=== PATIENT | male | born 1995 | race Caucasian/White ===

== ENCOUNTER 2021-05-10 19:39 | Emergency (ER) | payer OTHER, SELFPAY ==
[2021-05-10 20:38] VITALS: BP 105/56; PULSE 82; RESP 16; TEMP 36.8; O2SAT 100
[2021-05-10 20:59] LABS: Hematocrit 42.2 % (42.0-52.0); Hemoglobin 14.1 g/dL (14.0-18.0); Mean Corpuscular HGB Conc 33.4 g/dl (32-36); Mean Corpuscular Hemoglobin 31.8 pg (26-34); Mean Corpuscular Volume 95.3 fl (80-100); Mean Platelet Volume 10.8 fl (7.4-10.4); Platelet Count Result 187 k/mm3 (150-375); Red Blood Count 4.43 M/mm3 (4.6-6.20); Red Cell Distribution Width 13.2 % (11.5-14.5); White Blood Count 4.2 K/mm3 (4.5-10.0)
[2021-05-10 21:09] LABS: Ethanol < 10 mg/dL (<10)
[2021-05-10 21:11] LABS: Alanine Aminotransferase 31 U/L (4-50); Albumin Level 4.5 g/dL (3.5-5.1); Alkaline Phosphatase 83 U/L (38-126); Anion Gap 10 mmol/L (8-16); Aspartate Amino Transferase 41 U/L (17-59); Bilirubin,Total 0.4 mg/dL (0.2-1.3); Blood Urea Nitrogen 10 mg/dL (9-20); Calcium 9.3 mg/dL (8.4-10.2); Carbon Dioxide 29 mmol/L (22-30); Chloride 106 mmol/L (98-107); Estimated CRCL calculation 100 ml/min; Estimated Glomerular Filt Rate > 60; Glucose 124 mg/dL (75-110); Potassium 3.8 mmol/L (3.4-5.0); Sodium 145 mmol/L (137-145)
[2021-05-10 21:30] LABS: Eosinophils Absolute Manual 0.33 K/mm3 (0.02-0.5); Eosinophils Percent Manual 8 % (0-4); Lymphocytes Absolute Manual 1.26 K/mm3 (1.1-4.5); Lymphocytes Percent Manual 30 % (18-44); Monocytes Absolute Manual 0.79 K/mm3 (0.1-0.90); Monocytes Percent Manual 19 % (3-9); Neutrophils Percent Manual 43 % (46-73); Total Cells Counted 100
[2021-05-10 21:31] LABS: Platelet Estimate Adequate (Adequate)
[2021-05-10 21:41] LABS: Thyroid Stimulating Hormone 0.665 uIU/mL (0.465-4.680)
[2021-05-10 22:12] LABS: Add Urine Microscopic? YES; Appearance Urine Clear (Clear); Bilirubin Urine Negative (Negative); Blood Urine Negative (Negative); Color Urine Amber (Yellow); Glucose Urine UA Negative (Negative); Ketones Urine Trace mg/dL (Negative); Leukocyte Esterase Ur Negative LEU/UL (Negative); Mucus Urine Heavy /lpf; Nitrate Urine Negative (Negative); Protein Urine 1+ mg/dL (Negative); RBC Urine 0-2 /hpf (0-2); Specific Grav Ur 1.031 (1.001-1.035); Squamous Epithelial Cell Urine Rare /hpf (Few); WBC Urine 0-3 /hpf
--- NOTE | 2021-05-10 22:23 | PC.NURSE ---
pt medically cleared by jaqueline cameron np
[2021-05-10 22:24] LABS: Amphetamine Screen Urine Negative (Negative); Barbiturate Screen Urine Negative (Negative); Benzodiazepines Screen Urine Positive (Negative); Cannabinoid Screen Urine Positive (Negative); Cocaine Screen Urine Negative (Negative); Methadone Screen Urine Negative (Negative); Opiate Screen Urine Negative (Negative); Phencyclidine Screen Urine Negative (Negative)
--- NOTE | 2021-05-10 22:26 | PC.NURSE ---
crisis contacted at this time
--- NOTE | 2021-05-10 23:13 | ED.PSYCH ---
HPI - Psych General Chief Complaint: Psychiatric Symptoms <EBONI Hernandez - Last Filed: 05/11/21 01:26> Stated Complaint: mental health crisis <EBONI Hernandez - Last Filed: 05/11/21 01:26> Time Seen by Provider: 05/10/21 21:06 <EBONI Hernandez - Last Filed: 05/11/21 01:26> Source: patient <EBONI Hernandez - Last Filed: 05/11/21 01:26> Mode of arrival: ambulatory <EBONI Hernandez - Last Filed: 05/11/21 01:26> Limitations: no limitations <EBONI Hernandez - Last Filed: 05/11/21 01:26> History of Present Illness HPI Narrative: Patient is a 25 year old male who presents with mother for psych evaluation. Per mother patient has had concerning behaviors since the age of 18. Mother reports that patient has been having increasing behavioral concerns since 2019 and reports increasing concerns over the past few month. Mother reports patient has been increasingly paranoid and delusional. Mother reports auditory and visual hallucinations. Mother expresses concerns for safety of patient and family. Mother reports that patient was prescribed risperdal in the past but does not take and he has only been seen once by psychiatry and mother reports canceling follow-up appointments.. Patient is unfocused, having auditory and visual hallucinations during assessment, talking to self and mumbling. <EBONI Hernandez - Last Filed: 05/11/21 01:26> MD complaint: other (Hallucinations) <EBONI Hernandez - Last Filed: 05/11/21 01:26> Related Data Home Medications: Home Medications Medication Instructions Recorded Confirmed propranolol 05/11/21 risperidone mg 05/11/21 <EBONI Hernandez - Last Filed: 05/11/21 01:26> Allergies/Adverse Reactions: Allergies Allergy/AdvReac Type Severity Reaction Status Date / Time No Known Allergies Allergy Mild Unverified 02/20/12 11:03 <EBONI Hernandez - Last Filed: 05/11/21 01:26> Review of Systems Review of Systems: Narrative: CONSTITUTIONAL: Denies fever, chills, or sweats. EYES: Denies visual changes, redness, or discharge. ENT: Denies rhinorrhea, congestion, sore throat, or otalgia. CARDIOVASCULAR: Denies chest pain, palpitations, or edema. RESPIRATORY: Denies cough or dyspnea. GASTROINTESTINAL: Denies abdominal pain, nausea, vomiting, or diarrhea. GENITOURINARY: Denies dysuria or hematuria. SKIN: Denies rash or itching. MUSCULOSKELETAL: Denies back pain, joint pain, or myalgia. NEUROLOGIC: Denies headache, numbness, dizziness, or weakness. PSYCHIATRIC: Reports hallucinations (per mother). <EBONI Hernandez - Last Filed: 05/11/21 01:26> [facility] Social History Social History: Social History (Updated 05/10/21 @ 23:23 by EBONI Hernandez) Smoking status: Never smoker Alcohol intake: never Substance use: current Substance use type: marijuana and other Living arrangements: with family Occupation/Education: unemployed <EBONI Hernandez - Last Filed: 05/11/21 01:26> Comments At the time of signature, I have reviewed and agree with nursing past medical, surgical, social, and family history unless otherwise noted. Please see nursing chart for further information. There is no relevant family history pertinent to the presenting complaint. <EBONI Hernanedz - Last Filed: 05/11/21 01:26> Exam Narrative: Exam Narrative: GENERAL: Well-appearing, well-nourished, and in no acute distress. HEAD: Normocephalic, atraumatic. EYES: EOMI. No redness or drainage. Conjunctiva are normal. ENT: Mucous membranes pink and moist. . CHEST: No respiratory distress. Clear to auscultation. HEART: Regular rate and rhythm. No murmur appreciated. Normal peripheral pulses. GI: Soft, nontender without rebound, or guarding. EXTREMITIES: Normal range of motion. No edema. SKIN: Warm, dry, no rash. NEURO: No focal deficits. Alert and oriented x3. Gait steady. PSYCH: Poor
[2021-05-11 02:05] LABS: EDCOVIDSCREEN Negative (Negative)
--- NOTE | 2021-05-11 03:44 | PC.NURSE ---
0240 Spoke with Yue from [facility] about possible transfer there. Pt spoke with her as well. Faxed chart to [facility] as requested.
[2021-05-11 06:00] VITALS: BP 109/64; PULSE 79; RESP 16; O2SAT 100
[2021-05-11 06:05] VITALS: TEMP 36.7
--- NOTE | 2021-05-11 06:30 | PC.NURSE ---
Patient refusing to sign authorization for transfer-patient reports that he was told (nobody else in room as patient is looking at the corner) my grey stock recorder has to be present before I sign anything . Patient calm with flat affect-moves very slowly, carefully and deliberately
--- NOTE | 2021-05-11 06:53 | PC.NURSE ---
Mother called and notified of patients acceptance and transfer to [facility]
== END 2021-05-11 06:57 ==
PROVIDERS: Emergency Medicine; Nurse Practitioner; Emergency Provider Emergency Medicine
DX: F23 Brief psychotic disorder (principal); Z20.822 Contact with and (suspected) exposure to COVID-19
CPT/HCPCS: 36415; 80053; 80307; 81001; 84443; 85025; 87426; 99285; C9803

== ENCOUNTER 2021-09-01 15:19 | Observation (INO) | payer OTHER, SELFPAY ==
[2021-09-01] VITALS (11 sets, daily range): BP systolic 114–155; BP diastolic 51–100; PULSE 92–103; RESP 16–28; TEMP 36.6; O2SAT 98–100; BMI 23.2
--- NOTE | ~2021-09-01 | CT_ITS ---
EXAMINATION: CT brain wo con DATE: 09/01/2021 16:12 INDICATION: Altered mental status. TECHNIQUE: Computed tomography (CT) of the head was performed without intravenous contrast. The mA wa s adjusted according to patient size. Iterative reconstruction technique was employed. The dose-lengt h product was 605.33 mGy-cm. COMPARISON: None FINDINGS: There is no intracranial hemorrhage, acute infarction, or abnormal intracranial mass lesion . The ventricles are normal in size. The orbits are normal. The paranasal sinuses are clear. The mast oid air cells are normal. IMPRESSION: 1. Normal brain. Reviewed, dictated and finalized at location A. IMPRESSION: 1. Normal brain.
--- NOTE | ~2021-09-01 | XR_ITS ---
EXAMINATION: XR chest 1V portable DATE: 09/01/2021 16:14 INDICATION: Transient alteration of awareness. TECHNIQUE: A single frontal view of the chest was obtained. COMPARISON: Chest 2 views 07/15/2006 FINDINGS: The chest demonstrates clear lungs without pneumonia, pleural effusion, or pneumothorax. Th e heart size is normal. IMPRESSION: 1. No acute cardiopulmonary disease. Reviewed, dictated and finalized at location A.
--- NOTE | 2021-09-01 15:50 | ECG_ITS ---
Measurements Intervals [place] Rate: 91 P: 63 AR: 163 QRS: 52 QRSD: 110 T: 46 QT: 397 QTc: 491 Interpretive Statements SINUS RHYTHM INTRAVENTRICULAR CONDUCTION DELAY BASELINE ARTIFACT- I, II, III BORDERLINE ECG Electronically Signed On 09-01-2021 20:19:31 CDT by Jet Tran D.O.
--- NOTE | 2021-09-01 16:00 | ED.AMS ---
HPI - Altered Mental Status General Chief Complaint: Altered Mental Status Stated Complaint: LETHARGY Time Seen by Provider: 09/01/21 15:48 Source: EMS Mode of arrival: EMS Limitations: clinical condition History of Present Illness HPI narrative: Patient is a 25 M who presents for evaluation of altered mental status and possible overdose. Patient's mom reportedly found him confused, altered, and called an ambulance. Patient was transported to this facility with stable vital signs. He is currently nonverbal. Not able to provide any history. No focal deficits on exam. Glucose normal in route. Patient's mom stated that he was discharged from a psychiatric facility yesterday. He is prescribed the following medications: Propanolol 10 mg TID, Depakote 250 mg TID, Cogentin 1 mg BID, Wellbutrin 150 mg daily, Buspar 15 mg BID, Haldol 5 mg BID. She is unsure if he may have overdosed on any medication or had any alcohol to drink. Pill bottle with less Wellbutrin present. Additional history cannot be obtained secondary to clinical status. Related Data Home Medications Medication Instructions Recorded Confirmed benztropine [Cogentin] 1 mg PO BID 09/01/21 bupropion HCl [Wellbutrin XL] 150 mg PO QAM 09/01/21 buspirone [BuSpar] 15 mg PO BID 09/01/21 divalproex [Depakote] 250 mg PO Q12H 09/01/21 haloperidol [Haldol] 5 mg PO BID 09/01/21 lorazepam [Ativan] 0.5 mg PO BID PRN 09/01/21 propranolol 10 mg PO TID 09/01/21 Allergies Allergy/AdvReac Type Severity Reaction Status Date / Time No Known Allergies Allergy Mild Unverified 02/20/12 11:03 Review of Systems Review of Systems: ROS unobtainable: Yes unobtainable due to mental status PMFSH Social History Social History Smoking status: Never smoker Alcohol intake: never Substance use: current Substance use type: marijuana and other Exam Narrative: GENERAL: Awake, alert, does follow simple commands, garbled verbal response HEAD: Normocephalic, atraumatic. EYES: PERRLA and EOMI. Pupils dilated, 4+. ENT: Nares clear, no rhinorrhea or epistaxis. Mucous membranes dry. NECK: Supple. CHEST: No respiratory distress, breathing even and non labored HEART: Regular rate, sinus rhythm ABDOMEN:Non distended, non tender EXTREMITIES: Normal range of motion. No edema. SKIN: Pale, dry, no rash. NEURO:No focal deficits. Moving all extremities spontaneously. No facial paralysis. No focal deficits. Course Vital Signs Vital signs: Vital Signs Temperature 36.6 C 09/01/21 15:11 Pulse Rate 92 09/01/21 15:11 Respiratory Rate 16 09/01/21 15:11 Blood Pressure 127/51 L 09/01/21 15:11 Pulse Oximetry 98 09/01/21 15:11 Temperature 36.6 C 09/01/21 15:11 Pulse Rate 97 09/01/21 20:18 Respiratory Rate 18 09/01/21 20:18 Blood Pressure 131/83 09/01/21 20:18 Pulse Oximetry 100 09/01/21 20:18 MDM - Altered Mental Status MDM Narrative Medical decision making narrative: Patient presenting for evaluation of altered mental status. Patient with presumed Wellbutrin overdose based on amount of tablets missing, however it is unknown what the patient actually ingested. At the time of assessment, patient is somnolent, vital signs are stable. He is protecting his airway. Speech is garbled but he is following simple commands. Laboratory results show no electrolyte derangement. No acute kidney injury. Urinalysis shows no evidence of UTI. CK is normal. No thyrotoxicosis. Magnesium is normal. Drug screen confirms benzodiazepine ingestion. After speaking with poison control, they recommended observation admission. Unknown intent if this was suicidal attempt. Patient will be admitted to ICU. He is admitted in stable condition. No seizure activity or evidence of arrhythmia in the ER. Differential Diagnosis Differential diagnosis: Likely alcoholic intoxication, altered mental status, delirium, dementia, hypo
[2021-09-01 16:18] LABS: Alveolar/Arterial O2 Gradient 21.7 mmHg; Base Excess ABG -0.8 mEq/l (+/-2.0); Device ROOM AIR; Fractional Inspired Oxygen 21 %; HCO3 ABG 23.1 mEq/l (22.0-26.0); Modified Allen's Test Pass; Oxygen Saturation ABG 96.7 % (95.0-100.0); Oxyhemoglobin 95.4 % THb (90.0-100.0); PCO2 ABG 35.7 mmHg (35.0-45.0); PO2 ABG 85.3 mmHg (80.0-100.0); PO2 FiO2 Ratio Arterial Blood 4.06 %; Site Drawn RIGHT RADIAL; Total Hemoglobin 14.1 g/dL (12.0-18.0); pH ABG 7.428 (7.350-7.450)
[2021-09-01] MEDS: SODIUM CHLORIDE 0.9% IV 1,000 ML 999 ML IV CONT ×2 (16:30→20:12)
[2021-09-01 16:41] LABS: Basophils Percent Auto 0.3 % (0.2-1.2); Eosinophils Absolute Auto 0.1 K/mm3 (0-0.3); Eosinophils Percent Auto 1.4 % (0-4.4); Hemoglobin 13.6 g/dL (14.0-18.0); Immature Granulocyte Absolute 0.02 K/mm3 (0.00-0.031); Immature Granulocyte Percent A 0.3 % (0-0.5); Lymphocytes Absolute Auto 1.41 K/mm3 (0.9-3.2); Lymphocytes Percent Auto 21.3 % (18.3-44.2); Mean Corpuscular Hemoglobin 32.2 pg (26-34); Mean Corpuscular Volume 94.8 fl (80-100); Mean Platelet Volume 10.4 fl (7.4-10.4); Monocytes Percent Auto 14.6 % (2.6-8.5); Neutrophils Absolute Auto 4.1 K/mm3 (1.3-6.7); Neutrophils Percent Auto 62.1 % (45.5-73.1); Platelet Count Result 220 k/mm3 (150-375); Red Blood Count 4.22 M/mm3 (4.6-6.20); Red Cell Distribution Width 13.1 % (11.5-14.5); White Blood Count 6.6 K/mm3 (4.5-10.0)
[2021-09-01 16:41] LABS: Basophils Percent Auto 0.3 % (0.2-1.2); Eosinophils Absolute Auto 0.1 K/mm3 (0-0.3); Eosinophils Percent Auto 1.5 % (0-4.4); Hematocrit 41.9 % (42.0-52.0); Immature Granulocyte Absolute 0.03 K/mm3 (0.00-0.031); Immature Granulocyte Percent A 0.5 % (0-0.5); Lymphocytes Percent Auto 21.3 % (18.3-44.2); Mean Corpuscular HGB Conc 33.4 g/dl (32-36); Mean Corpuscular Hemoglobin 32.2 pg (26-34); Mean Corpuscular Volume 96.3 fl (80-100); Mean Platelet Volume 10.4 fl (7.4-10.4); Monocytes Absolute Auto 0.9 K/mm3 (0.1-0.6); Monocytes Percent Auto 14.3 % (2.6-8.5); Neutrophils Absolute Auto 4.1 K/mm3 (1.3-6.7); Neutrophils Percent Auto 62.1 % (45.5-73.1); Platelet Count Result 213 k/mm3 (150-375); Red Blood Count 4.35 M/mm3 (4.6-6.20); Red Cell Distribution Width 13.2 % (11.5-14.5); White Blood Count 6.6 K/mm3 (4.5-10.0)
[2021-09-01 16:52] LABS: Alanine Aminotransferase 25 U/L (4-50); Albumin Level 4.7 g/dL (3.5-5.1); Alkaline Phosphatase 80 U/L (38-126); Anion Gap 11 mmol/L (8-16); Aspartate Amino Transferase 23 U/L (17-59); Bilirubin,Total 0.6 mg/dL (0.2-1.3); Blood Urea Nitrogen 6 mg/dL (9-20); Calcium 9.3 mg/dL (8.4-10.2); Carbon Dioxide 28 mmol/L (22-30); Chloride 105 mmol/L (98-107); Estimated Glomerular Filt Rate > 60; Glucose 83 mg/dL (65-110); Potassium 3.4 mmol/L (3.4-5.0); Sodium 144 mmol/L (137-145)
[2021-09-01 16:52] LABS: Alanine Aminotransferase 24 U/L (4-50); Albumin Level 4.6 g/dL (3.5-5.1); Alkaline Phosphatase 78 U/L (38-126); Anion Gap 14 mmol/L (8-16); Aspartate Amino Transferase 23 U/L (17-59); Bilirubin,Total 0.6 mg/dL (0.2-1.3); Blood Urea Nitrogen 7 mg/dL (9-20); Calcium 9.1 mg/dL (8.4-10.2); Carbon Dioxide 26 mmol/L (22-30); Chloride 105 mmol/L (98-107); Creatine Kinase 302 U/L (55-170); Estimated Glomerular Filt Rate > 60; Glucose 81 mg/dL (65-110); Potassium 3.5 mmol/L (3.4-5.0); Sodium 145 mmol/L (137-145)
[2021-09-01 16:54] LABS: Acetaminophen < 10 ug/mL (10-30); Ethanol < 10 mg/dL (<10); Salicylate < 1.0 mg/dL (2-20)
[2021-09-01 17:02] LABS: Partial Thromboplastin Time 26.6 SECONDS (22.3-36.8)
[2021-09-01 17:07] LABS: INR 0.9; Prothrombin Time 11.7 Seconds (11.1-14.7)
[2021-09-01 17:20] LABS: Add Urine Microscopic? YES; Appearance Urine Clear (Clear); Bilirubin Urine Negative (Negative); Blood Urine Negative (Negative); Color Urine Yellow (Yellow); Glucose Urine UA Negative (Negative); Ketones Urine Trace mg/dL (Negative); Leukocyte Esterase Ur Negative LEU/UL (Negative); Nitrate Urine Negative (Negative); Protein Urine Negative (Negative); RBC Urine 0-2 /hpf (0-2); Specific Grav Ur 1.006 (1.001-1.035); Urobilinogen Urine Negative mg/dL (<2.0); WBC Urine 0-3 /hpf
[2021-09-01 18:04] LABS: Magnesium 2.1 mg/dL (1.6-2.3)
[2021-09-01 18:39] LABS: Barbiturate Screen Urine Negative (Negative); Benzodiazepines Screen Urine Positive (Negative)
[2021-09-01 18:42] LABS: Valproic Acid 57.4 ug/mL (50-120)
[2021-09-01 18:53] LABS: Amphetamine Screen Urine Negative (Negative); Barbiturate Screen Urine Negative (Negative); Benzodiazepines Screen Urine Positive (Negative); Cannabinoid Screen Urine Negative (Negative); Methadone Screen Urine Negative (Negative); Opiate Screen Urine Negative (Negative); Phencyclidine Screen Urine Negative (Negative)
--- NOTE | 2021-09-01 19:33 | PC.NURSE ---
poison control contacted ed and was given an update of pts condition.
--- NOTE | 2021-09-01 20:45 | ADMGEN ---
This patient, Lokesh Wyatt, was admitted to Intensive Care Unit-10. Patient/family oriented to hospital policies and general routines including ID bracelet, bed and alarms, visiting hours, pain management, procedures, bathroom and other care routines, personal items, smoking policy, room service/diet, and visiting hours. Information on how to activate the Rapid Response Team has been discussed. Patient/Family are encouraged to report perceived risks to care and to ask questions if they do not understand what they are told or what they should do.
[2021-09-01] MEDS: SODIUM CHLORIDE 0.9% IV 1,000 ML 125 ML IV CONT (21:00)
--- NOTE | 2021-09-01 21:22 | PM.IMHP ---
H&P: HPI History of Present Illness Date/Time: 09/01/21 21:22 this is a 25-year-old male patient who has a past history of schizophrenia. The patient also deals with depression and anxiety. The patient's mom reportedly found the patient to be confused and altered therefore she called ambulance. The patient was initially nonverbal. However he he is now talking in active. He is attempting to get out of bed on many occasion. The patient was found to be positive for Xanax. I asked the patient about Xanax and he said somebody gave it to a but he could not tell me how many he took her how many pills he took today. He tells me that he is on medication for depression. But he would not tell me if he felt depressed or intentionally tried to overdose to commit suicide. The patient was recently discharged from psychiatric facility yesterday. He was prescribed propranolol, Depakote, Cogentin, Wellbutrin, BuSpar, and Haldol. The patient tells me does not use any alcohol. The patient is a poor historian by the way. Patient drug screen was positive for benzodiazepines. Is reported that poison Control had been notified. The garbage man has been consulted and the patient was placed in the intensive care unit under suicide watch. The patient is being admitted for observation status on the date of service of 09/01/2021. Chief Complaint: Overdose Review of Systems Review of Systems: ROS unobtainable: Yes unobtainable due to mental status PMFSH Past Medical History Medical History (Updated 09/01/21 @ 21:27 by Carmelina Desai NP) Depression with anxiety Schizophrenia Surgical History Surgical History (Updated 09/01/21 @ 21:27 by Carmelina Desai NP) Surgical history unknown Family History Family History Other Unknown family medical history Social History Social History (Updated 09/01/21 @ 21:28 by Carmelina Desai NP) Social History: The patient tells me that he has does not smoke or drink. He lives with his mother and he is listed as a full code. Code status full code. Smoking status: Never smoker Alcohol intake: never Substance use: current Substance use type: marijuana and other Meds Home Medications and Allergies Home Medications Medication Instructions Recorded Confirmed Type benztropine [Cogentin] 1 mg PO BID 09/01/21 History bupropion HCl [Wellbutrin XL] 150 mg PO QAM 09/01/21 History buspirone [BuSpar] 15 mg PO BID 09/01/21 History divalproex [Depakote] 250 mg PO Q12H 09/01/21 History haloperidol [Haldol] 5 mg PO BID 09/01/21 History lorazepam [Ativan] 0.5 mg PO BID PRN 09/01/21 History propranolol 10 mg PO TID 09/01/21 History Allergies Allergy/AdvReac Type Severity Reaction Status Date / Time No Known Allergies Allergy Mild Unverified 02/20/12 11:03 Vital Signs Vital Signs - 24 hr 09/01/21 15:11 09/01/21 17:00 09/01/21 17:01 Temperature 36.6 C Pulse Rate 92 95 93 Respiratory Rate 16 22 H 23 H Blood Pressure 127/51 L 134/80 Pulse Oximetry 98 09/01/21 17:15 09/01/21 17:16 09/01/21 17:30 Temperature Pulse Rate 98 96 103 H Respiratory Rate 19 28 H 28 H Blood Pressure 138/90 155/100 H Pulse Oximetry 09/01/21 17:31 09/01/21 17:58 09/01/21 18:43 Temperature Pulse Rate 98 94 Respiratory Rate 28 H 20 16 Blood Pressure Pulse Oximetry 09/01/21 20:18 Temperature Pulse Rate 97 Respiratory Rate 18 Blood Pressure 131/83 Pulse Oximetry 100 Exam Const: General: alert, awake, Physically active and anxious Nutritional Appearance: thin Orientation/consciousness: oriented to person Limitations: altered mental status HENMT: Head: normal to inspection, No palpable skull fracture present and normocephalic Ears: hearing grossly normal bilaterally General nose exam: Normal external nose present Eyes: General: appearance normal, both eyes and all related structures Alignment and
[2021-09-02] VITALS (7 sets, daily range): BP systolic 105–131; BP diastolic 57–88; PULSE 67–116; RESP 15–20; TEMP 36.8–36.9; O2SAT 97–100
--- NOTE | 2021-09-02 00:07 | ECG_ITS ---
Measurements Intervals [place] Rate: 94 P: 60 GA: 173 QRS: 60 QRSD: 112 T: 58 QT: 368 QTc: 462 Interpretive Statements SINUS RHYTHM INTRAVENTRICULAR CONDUCTION DELAY BORDERLINE ECG Electronically Signed On 09-02-2021 8:32:42 CDT by Jet Tran D.O.
[2021-09-02] MEDS: SODIUM CHLORIDE 0.9% IV 1,000 ML 125 ML IV CONT ×3 (04:01→23:44)
[2021-09-02 04:58] LABS: Basophils Percent Auto 0.5 % (0.2-1.2); Eosinophils Absolute Auto 0.1 K/mm3 (0-0.3); Eosinophils Percent Auto 1.8 % (0-4.4); Hematocrit 37.9 % (42.0-52.0); Hemoglobin 12.8 g/dL (14.0-18.0); Immature Granulocyte Absolute 0.02 K/mm3 (0.00-0.031); Immature Granulocyte Percent A 0.4 % (0-0.5); Lymphocytes Absolute Auto 1.27 K/mm3 (0.9-3.2); Lymphocytes Percent Auto 22.2 % (18.3-44.2); Mean Corpuscular HGB Conc 33.8 g/dl (32-36); Mean Corpuscular Hemoglobin 32.2 pg (26-34); Mean Corpuscular Volume 95.2 fl (80-100); Monocytes Percent Auto 16.8 % (2.6-8.5); Neutrophils Absolute Auto 3.3 K/mm3 (1.3-6.7); Neutrophils Percent Auto 58.3 % (45.5-73.1); Platelet Count Result 176 k/mm3 (150-375); Red Blood Count 3.98 M/mm3 (4.6-6.20); Red Cell Distribution Width 12.9 % (11.5-14.5); White Blood Count 5.7 K/mm3 (4.5-10.0)
[2021-09-02 05:23] LABS: Alanine Aminotransferase 19 U/L (4-50); Albumin Level 3.7 g/dL (3.5-5.1); Alkaline Phosphatase 62 U/L (38-126); Anion Gap 9 mmol/L (8-16); Aspartate Amino Transferase 27 U/L (17-59); Bilirubin,Total 0.6 mg/dL (0.2-1.3); Blood Urea Nitrogen 5 mg/dL (9-20); Calcium 7.6 mg/dL (8.4-10.2); Carbon Dioxide 26 mmol/L (22-30); Chloride 107 mmol/L (98-107); Estimated CRCL calculation 107 ml/min; Estimated Glomerular Filt Rate > 60; Glucose 76 mg/dL (65-110); Lactate Dehydrogenase 401 U/L (313-618); Lactic Acid Reflex 0.7 mmol/L (0.7-2.1); Magnesium 1.8 mg/dL (1.6-2.3); Potassium 3.3 mmol/L (3.4-5.0); Sodium 142 mmol/L (137-145)
[2021-09-02] MEDS: SODIUM CHLORIDE 0.9% IV 1,000 ML 999 ML IV CONT (07:43)
[2021-09-02] MEDS: ENOXAPARIN 40 MG/0.4 ML SYRINGE SUB-Q (07:43)
[2021-09-02] MEDS: POTASSIUM CHLORIDE 20 MEQ TABLET 40 MEQ PO (10:22)
--- NOTE | 2021-09-02 11:07 | ECG_ITS ---
Measurements Intervals [place] Rate: 100 P: 58 CA: 158 QRS: 40 QRSD: 95 T: 46 QT: 350 QTc: 453 Interpretive Statements SINUS TACHYCARDIA BORDERLINE ECG Electronically Signed On 09-02-2021 11:30:11 CDT by Jet Tran D.O.
--- NOTE | 2021-09-02 12:09 | WPDCNINT ---
Assessment and Plan Assessment and plan (1) Medication overdose: Code(s): T50.901A - Poisoning by unspecified drugs, medicaments and biological substances, accidental (unintentional), initial encounter Status: Acute Assessment and Plan: Patient presented with altered mental status likely related to medication overdose, likely Xanax and/or Wellbutrin according to the records -patient initially was somnolent but protecting his airways, -patient received IV fluids -currently is awake, alert, oriented, answers to questions appropriately -patient is hemodynamically stable, afebrile -patient is medically stable -denies any suicidal ideation/behavior -will have care coordination and crisis management evaluate the patient (2) Altered mental status: Code(s): R41.82 - Altered mental status, unspecified Status: Acute Assessment and Plan: Likely secondary ingestion of medications as above -resolved (3) Schizophrenia: Code(s): F20.9 - Schizophrenia, unspecified Status: Chronic Assessment and Plan: History of schizophrenia, multiple psych medications at home (4) Depression with anxiety: Code(s): F41.8 - Other specified anxiety disorders Status: Chronic Additional Plan Code status: Full code Critical care time spent: 41 minutes This dictation may have been done utilizing a voice recognition system. Attempts have been made to correct errors. However, there may be uncorrected grammatical, spelling, and recognition errors present. Due to a high probability of clinically significant, life threatening deterioration, the patient required my highest level of preparedness to intervene emergently and I personally spent this critical care time directly and personally managing the patient. This critical care time included obtaining a history; examining the patient; pulse oximetry; ordering and review of studies; arranging urgent treatment with development of a management plan; evaluation of patient's response to treatment; frequent reassessment; and discussions with other providers. It was exclusive of separately billable procedures and treating other patients and teaching time. Please see Assessment and Plan section and the rest of the note for further information on patient assessment and treatment Transport Analyst Consult Note Consult date: 09/02/21 Time Seen: 06:54 Reason for consult: Medication overdose, altered mental status HPI: Lokesh Wyatt is a 25 year old male with past medical history of depression with anxiety, schizophrenia with paranoia presented the ED on 09/01/2021 after he was found by his mother to be confused and with altered mental status. EMS was called and patient arrived in the ER with possible intentional medication overdose with benzodiazepine and or Wellbutrin. According the records patient was discharged from a psychiatric facility recently and was prescribed propranolol, Depakote, Cogentin, Wellbutrin, BuSpar, Haldol. Urine drug screen was positive benzodiazepine. Patient was able to protect his airway, was given IV fluids in transfer the ICU for further management. Poison control was notified Patient seen and examined this morning, is awake, alert, able to answer all questions. His paranoid state and states he did not take Wellbutrin and he may have taken Xanax and he was very anxious. He stated he is not homicidal or suicidal at this time. Currently awake, alert, answers to questions appropriately, nonfocal. Patient is afebrile to hemodynamically stable with adequate urine output Review of Systems Review of Systems: All systems reviewed & are unremarkable except as noted in HPI and below PMFSH Past Medical History Medical History (Updated 09/02/21 @ 12:27 by Freddy Long MD) Depression with anxiety Schizophrenia Surgical History Surgical History (Updated 09/01/21 @ 21:27 by Carmelina Desai NP) Surgical history unknown Family Histor
[2021-09-02 12:28] LABS: EDCOVIDSCREEN Negative (Negative)
[2021-09-02 13:15] LABS: Creatine Kinase 1224 U/L (55-170)
--- NOTE | 2021-09-02 13:36 | PC.NURSE ---
PCR Covid swab sent for placement per Crisis Nurse request. Certain facilities don't accept the rapid swab.
--- NOTE | 2021-09-02 15:27 | PM.IMPN ---
Progress Note: A&P Assessment and Plan (1) Medication overdose: Code(s): T50.901A - Poisoning by unspecified drugs, medicaments and biological substances, accidental (unintentional), initial encounter Status: Acute Assessment and Plan: Patient presented with altered mental status likely related to medication overdose, likely Ativan and/or Wellbutrin according to the records. Patient denies any suicidal or homicidal ideation. He was recently at a psychiatric facility. Will control the other medical problems with plans for patient to return to psychiatric facility once he is stable. Continue IV fluids. Care coordination and crisis management have been consulted. (2) Altered mental status: Code(s): R41.82 - Altered mental status, unspecified Status: Acute Assessment and Plan: Likely secondary ingestion of medications as above. Consider also seizure in the differential. Clinical condition is improving. Continue to monitor. (3) Urine retention: Code(s): R33.9 - Retention of urine, unspecified Status: Acute Assessment and Plan: Patient had urine retention of over 1 L. he refused catheter at this time. Since findings show evaluation, he has been able to void good volumes. Clinical exam has improved. Continue to monitor urine output. Renal function remaining normal. (4) Rhabdomyolysis: Code(s): M62.82 - Rhabdomyolysis Status: Acute Assessment and Plan: Total CK was elevated at 302 on admission. On repeat, total CK climbed to 1224. Probably related to Haldol. Although there is concern for drug overdose, consider also unwitnessed seizure which could can attribute to the elevated total CK. Continue IV fluids. Repeat total CK in the morning. (5) Schizophrenia: Code(s): F20.9 - Schizophrenia, unspecified Status: Chronic Assessment and Plan: Patient has a history of schizophrenia. Patient remaining stable at this time. Valproic acid level 57. Continue to monitor closely. Planning for psychiatric placement. (6) Depression with anxiety: Code(s): F41.8 - Other specified anxiety disorders Status: Chronic Assessment and Plan: Patient still shaky but mental status overall is improved. Continue to hold home medications at this time. (7) DVT prophylaxis: Code(s): Z29.9 - Encounter for prophylactic measures, unspecified Status: Acute Assessment and Plan: Lovenox Subjective Date/time seen: 09/02/21 15:27 Interval history: 25yo male with depression/anxiety and schizophrenia here for altered mental status. Patient was discharged from the psychiatric facility day prior to admission. Was discharged on propranolol, Depakote, Cogentin, Wellbutrin, BuSpar at [facility]. It is unclear how much medications he took. He denies taking excessive amounts of medications including Wellbutrin. Urine drug screen was positive for benzodiazepines. Patient denies any suicidal or homicidal ideation. He states that he has to void but has been trying to hold it. Later in the conversation, he states that he is having trouble voiding. No dysuria or hematuria. Exam Narrative: AF 98.2 118/76 116 16 100% ra Gen - NARD Chest - CTA bilaterally, nml RR CV - RRR S1/S2. Telemetry showing no significant dysrhythmias Abd -soft. Distended. Firm lower abdomen consistent with distended bladder Ext - No pedal edema Neuro -alert. Tremulous. He is able to stand try to use a urinal. He perseverates. Psych -poor eye contact. Mumbling speech at times Skin - Warm and dry Objective Data Vital Signs Vital Signs: Vital Signs - 24 hr 09/01/21 17:00 09/01/21 17:01 09/01/21 17:15 Temperature Pulse Rate 95 93 98 Respiratory Rate 22 H 23 H 19 Blood Pressure 134/80 138/90 Pulse Oximetry 09/01/21 17:16 09/01/21 17:30 09/01/21 17:31 Temperature Pulse Rate 96 103 H 98 Respiratory Rate 28 H
--- NOTE | 2021-09-02 20:42 | PC.NURSE ---
When asked if pt had thoughts of wanting to harm himself, he stated no. When asked if pt knew why he was at the hospital pt states that he blacked out. Reports no intention of wanting to kill himself. States he has never been hospitalized before, never experienced blacking out, nor has he attempted suicide in the past. Pt states he is not a threat to himself.
[2021-09-03] VITALS: BP 109/69; PULSE 82; RESP 20; TEMP 37; O2SAT 98
[2021-09-03 05:35] LABS: Basophils Percent Auto 0.3 % (0.2-1.2); Eosinophils Absolute Auto 0.2 K/mm3 (0-0.3); Eosinophils Percent Auto 4.1 % (0-4.4); Hematocrit 40.5 % (42.0-52.0); Hemoglobin 13.6 g/dL (14.0-18.0); Immature Granulocyte Absolute 0.02 K/mm3 (0.00-0.031); Immature Granulocyte Percent A 0.3 % (0-0.5); Lymphocytes Absolute Auto 1.31 K/mm3 (0.9-3.2); Lymphocytes Percent Auto 22.6 % (18.3-44.2); Mean Corpuscular HGB Conc 33.6 g/dl (32-36); Mean Corpuscular Hemoglobin 32.1 pg (26-34); Mean Corpuscular Volume 95.5 fl (80-100); Mean Platelet Volume 10.8 fl (7.4-10.4); Monocytes Percent Auto 17.4 % (2.6-8.5); Neutrophils Absolute Auto 3.2 K/mm3 (1.3-6.7); Neutrophils Percent Auto 55.3 % (45.5-73.1); Platelet Count Result 187 k/mm3 (150-375); Red Blood Count 4.24 M/mm3 (4.6-6.20); Red Cell Distribution Width 12.8 % (11.5-14.5); White Blood Count 5.8 K/mm3 (4.5-10.0)
[2021-09-03 06:04] LABS: Alanine Aminotransferase 24 U/L (4-50); Albumin Level 4.1 g/dL (3.5-5.1); Alkaline Phosphatase 80 U/L (38-126); Anion Gap 9 mmol/L (8-16); Aspartate Amino Transferase 25 U/L (17-59); Bilirubin,Total 0.4 mg/dL (0.2-1.3); Blood Urea Nitrogen 3 mg/dL (9-20); Calcium 8.5 mg/dL (8.4-10.2); Carbon Dioxide 27 mmol/L (22-30); Chloride 104 mmol/L (98-107); Creatine Kinase 664 U/L (55-170); Estimated CRCL calculation 119 ml/min; Estimated Glomerular Filt Rate > 60; Glucose 95 mg/dL (65-110); Phosphorus 4.4 mg/dL (2.5-4.5); Potassium 3.6 mmol/L (3.4-5.0); Sodium 140 mmol/L (137-145)
--- NOTE | 2021-09-03 06:29 | PC.NURSE ---
Updated Lisa Rodriguez, at Poison Control with pt's updated CK, BUN, creatinine. No new orders requested at this time. Pt eligible for medical clearance per MD discretion.
[2021-09-03] MEDS: SODIUM CHLORIDE 0.9% IV 1,000 ML 125 ML IV CONT ×3 (07:59→23:18)
[2021-09-03 08:00] VITALS: BP 105/90; PULSE 85; RESP 22; TEMP 36.8; O2SAT 100
--- NOTE | 2021-09-03 08:20 | PC.NURSE ---
PATIENT HAS BEEN CLEARED AND RELEASED BY POISON CONTROL.
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
[2021-09-03] MEDS: ENOXAPARIN 40 MG/0.4 ML SYRINGE SUB-Q (15:31)
[2021-09-03 16:00] VITALS: BP 119/72; PULSE 84
[2021-09-03 17:47] LABS: SARS-CoV-2 RNA PCR Negative
--- NOTE | 2021-09-03 18:36 | PC.NURSE ---
1730-REPORT GIVEN TO CINDY HOWARD AT [facility]. ALL QUESTIONS ANSWERED. WILL CALL WITH ETA WHEN TRANSPORT IS ARRANGED.
[2021-09-03] MEDS: LORazepam (*CRX) 0.5 MG TABLET PO (18:43)
[2021-09-04] VITALS: BP 127/81; PULSE 95; RESP 18; TEMP 36.9; O2SAT 100
[2021-09-04 04:57] LABS: Anion Gap 8 mmol/L (8-16); Blood Urea Nitrogen 4 mg/dL (9-20); Calcium 8.6 mg/dL (8.4-10.2); Carbon Dioxide 27 mmol/L (22-30); Chloride 105 mmol/L (98-107); Creatine Kinase 233 U/L (55-170); Estimated CRCL calculation 119 ml/min; Estimated Glomerular Filt Rate > 60; Glucose 101 mg/dL (65-110); Potassium 3.9 mmol/L (3.4-5.0); Sodium 140 mmol/L (137-145)
[2021-09-04] MEDS: SODIUM CHLORIDE 0.9% IV 1,000 ML 125 ML IV CONT ×3 (07:11→22:37)
[2021-09-04 08:00] VITALS: BP 131/82; PULSE 84; RESP 18; RESP 20; TEMP 36.6; O2SAT 96; O2SAT 98
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
[2021-09-04 16:00] VITALS: BP 113/68; PULSE 77; RESP 16; TEMP 36.8; O2SAT 96
[2021-09-04] MEDS: LORazepam (*CRX) 0.5 MG TABLET PO (20:45)
[2021-09-05] VITALS: BP 117/71; PULSE 62; RESP 18; TEMP 37.2; O2SAT 99
[2021-09-05] MEDS: SODIUM CHLORIDE 0.9% IV 1,000 ML 125 ML IV CONT (06:38)
[2021-09-05 08:00] VITALS: BP 120/70; PULSE 101; RESP 16; TEMP 37; O2SAT 100
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
[2021-09-05 14:59] VITALS: BP 122/63; PULSE 98; RESP 14; O2SAT 100
[2021-09-05] MEDS: busPIRone HCL 5 MG TABLET 15 MG PO (16:39)
[2021-09-05] MEDS: BENZTROPINE MESYLATE 1 MG TABLET PO (16:40)
[2021-09-05] MEDS: DIVALPROEX SODIUM DR 250 MG TABEC PO (16:40)
[2021-09-05] MEDS: HALOPERIDOL 5 MG TABLET PO (16:40)
[2021-09-05] MEDS: LORazepam (*CRX) 0.5 MG TABLET PO (18:34)
[2021-09-05 23:37] VITALS: BP 112/54; PULSE 84; RESP 22; TEMP 37.6; O2SAT 97
--- NOTE | 2021-09-06 00:53 | PC.NURSE ---
Spoke with [place] at [facility]. States that patient will need PCR within the last 24 hours to be placed and that bed will be available later today. They will need to be notified when results are available. They have confirmed that they received face sheet for this patient.
[2021-09-06] MEDS: HALOPERIDOL 5 MG TABLET PO ×2 (08:48→17:06)
[2021-09-06] MEDS: buPROPion HCL XL (24 HR) 150 MG TABCR PO (08:48)
[2021-09-06] MEDS: BENZTROPINE MESYLATE 1 MG TABLET PO ×2 (08:48→17:06)
[2021-09-06] MEDS: DIVALPROEX SODIUM DR 250 MG TABEC PO ×2 (08:48→17:06)
[2021-09-06] MEDS: ENOXAPARIN 40 MG/0.4 ML SYRINGE SUB-Q (08:48)
[2021-09-06] MEDS: busPIRone HCL 5 MG TABLET 15 MG PO ×2 (08:48→17:05)
[2021-09-06 08:51] VITALS: BP 108/62; PULSE 84; RESP 16; TEMP 36.9; O2SAT 98
--- NOTE | 2021-09-06 14:18 | PM.DS ---
DS: Admitting Diagnosis Discharge Date 09/06/21 Admitting Diagnosis Altered mental status DS: Discharge Diagnosis Discharge Diagnosis (1) Medication overdose: Qualifiers: Encounter type: sequela Injury intent: intentional self-harm Qualified Code(s): T50.902S - Poisoning by unspecified drugs, medicaments and biological substances, intentional self-harm, sequela Code(s): T50.901A - Poisoning by unspecified drugs, medicaments and biological substances, accidental (unintentional), initial encounter Status: Acute Assessment and Plan: Patient presented with altered mental status likely related to medication overdose, either Ativan and/or Wellbutrin according to the records. Patient denies any suicidal or homicidal ideation. Patient was cleared by Crisis for safe discharge home. (2) Altered mental status: Qualifiers: Altered mental status type: transient alteration of awareness Qualified Code(s): R40.4 - Transient alteration of awareness Code(s): R41.82 - Altered mental status, unspecified Status: Acute Assessment and Plan: Likely secondary ingestion of medications as above. Consider also seizure in the differential but felt les likely. Clinical condition improved and he returned to baseline (3) Urine retention: Code(s): R33.9 - Retention of urine, unspecified Status: Acute Assessment and Plan: Patient had urine retention of over 1 L by bladder scanner. He refused catheter at that time. Haldol and Cogentin can cause this. He was able to void small volumes and eventually able to void larger amounts with repeat bladder scan showed urine retention resolved. He did not have recurrence even despite his medications being resumed. Renal function remained normal as well (4) Rhabdomyolysis: Qualifiers: Rhabdomyolysis type: non-traumatic Qualified Code(s): M62.82 - Rhabdomyolysis Code(s): M62.82 - Rhabdomyolysis Status: Acute Assessment and Plan: Total CK was elevated at 302 on admission. On repeat, total CK climbed to 1224. Probably related to Haldol. Although there is concern for drug overdose, consider also unwitnessed seizure which could contribute to the elevated total CK and explain the altered mental status. With IV fluids, total CK trended down. (5) Schizophrenia: Qualifiers: Schizophrenia type: unspecified Qualified Code(s): F20.9 - Schizophrenia, unspecified Code(s): F20.9 - Schizophrenia, unspecified Status: Chronic Assessment and Plan: Patient has a history of schizophrenia. Patient remained stable. Valproic acid level 57. Home meds resumed (6) Depression with anxiety: Code(s): F41.8 - Other specified anxiety disorders Status: Chronic Assessment and Plan: Patient's mental status remained stable. DS: Summary Hospital Course Reason for hospitalization: 25yo male with depression/anxiety and schizophrenia here for altered mental status. Please see H&P for details Hospital Course: Please see above for details of hospital course Status at Discharge Cognitive/behavioral status at discharge: stable Time Spent with Patient Time attestation: Total time spent providing and/or coordinating discharge services: 32 minutes Time spent: Greater than 30 minutes Specific discharge activities: Left message with family. Patient aware of discharge. Discussed discharge plan also with care coordination. Exam Narrative: AF 98.4 108/62 84 16 98% ra Gen - NARD Chest - CTA bilaterally, nml RR CV - RRR S1/S2 Abd -soft. NT/ND, +BS. Bladder does not feel distended. Ext - No pedal edema Neuro -alert and appropriate Psych -nml mood but odd affect. He denies auditory or visual hallucination Skin - Warm and dry DS: Data Data Completed and Pending Labs on day of discharge: Labs from last 24 hours 09/06/21 06:52 SARS-CoV-2 R
[2021-09-06 18:52] LABS: SARS-CoV-2 RNA PCR Negative
[2021-10-06 14:56] LABS: Reference Lab Test Result None Detected
== END 2021-09-06 19:13 | disposition home or self-care (01) ==
LOC: ANHED 18:56 → ANHICU 09-02 07:33
PROVIDERS: Emergency Medicine; Internal Medicine; Nurse Practitioner; Admitting Provider Internal Medicine; Emergency Provider Emergency Medicine; Visit Provider Internal Medicine
DX: T42.4X1A Poisoning by benzodiazepines, accidental (unintentional), initial encounter (principal); F20.9 Schizophrenia, unspecified; F41.8 Other specified anxiety disorders; R41.82 Altered mental status, unspecified; R33.9 Retention of urine, unspecified; M62.82 Rhabdomyolysis; Z20.822 Contact with and (suspected) exposure to COVID-19
CPT/HCPCS: 36415; 36600; 51701; 70450; 71045; 80048; 80053; 80164; 80307; 81001; 82550; 82728; 82805; 83605; 83615; 83735; 84100; 84443; 85025; 85610; 85730; 87426; 93005; 96360; 96361; 96372; 99285; A9270; C9803; G0378; G0379; J1650; J7030; U0003; U0005

== ENCOUNTER 2021-09-23 21:02 | Inpatient (IN) | payer OTHER, SELFPAY ==
[2021-09-23] VITALS (11 sets, daily range): BP systolic 132–157; BP diastolic 83–145; PULSE 109–159; RESP 17–34; TEMP 37.1; O2SAT 94–96
--- NOTE | ~2021-09-23 | CT_ITS ---
EXAMINATION: CT brain wo con DATE: 09/23/2021 22:04 INDICATION: Confusion, altered mental state. History of schizophrenia. TECHNIQUE: Computed tomography (CT) of the head was performed without intravenous contrast. The mA wa s adjusted according to patient size. Iterative reconstruction technique was employed. Exam dose: 60 5.33 mGy-cm total exam DLP. COMPARISON: 09/01/2021 CT brain FINDINGS: No intracranial mass lesion or hemorrhage or cerebrovascular accident. No midline shift or mass effect. Normal ventricular size. Normal ureña-white matter differentiation. No subdural or epidur al hematoma. No orbital mass lesion. No fracture or bone destruction of the cranial vault. The included mastoid air cells and paranasal si nuses are normally developed and aerated. IMPRESSION: Negative Reviewed, dictated and finalized at [facility] Reviewed, dictated and finalized at [facility] IMPRESSION: Negative
--- NOTE | ~2021-09-23 | MR_ITS ---
EXAMINATION: MR hand LT wo con DATE: 09/26/2021 11:25 INDICATION: Left hand swelling TECHNIQUE: Magnetic resonance imaging (MRI) of the left hand was performed without intravenous contra st to include the metacarpals and digits. Sequences included sagittal, coronal, and axial proton-dens ity weighted fast spin echo without and with fat saturation. COMPARISON: None FINDINGS: Bone alignment is normal. Normal bone marrow signal throughout with no fracture, reactive edema or pa thologic marrow replacing process. Joint spaces appear normal with no joint effusions. The visualized portions of the extensor and flexor tendons are normal as are the collateral ligament complexes at t he metacarpophalangeal and interphalangeal joints. There is diffuse swelling and increased fluid sign al throughout much of the musculature of the left hand most prominent at the thenar eminence where th ere is overlying fluid-filled blistering of the skin at the palm of the hand. There is relative spari ng of the hyperthenar muscles of the ulnar side of the hand as well as portions of a few of the lumbr ical muscles. The distribution spanning multiple nerve distributions and the available clinical histo ry and laboratory findings suggests this is most likely related to rhabdomyolysis. There is diffuse s ubcutaneous edema throughout the hand greatest over the dorsum. No evident abscess or other abnormal extra fluid collections. IMPRESSION: 1. Extensive increased fluid signal throughout much of the musculature of the left hand consistent wi th nonspecific myositis. Given the clinical history and laboratory findings would favor rhabdomyolysi s. Reviewed, dictated and finalized at [facility] MANAGEMENT SPECIALIST IMPRESSION: 1. Extensive increased fluid signal throughout much of the musculature of the l eft hand consistent with nonspecific myositis. Given the clinical history and l aboratory findings would favor rhabdomyolysis.
--- NOTE | 2021-09-23 21:12 | ECG_ITS ---
Measurements Intervals [place] Rate: 124 P: 69 CT: 145 QRS: 29 QRSD: 88 T: 19 QT: 310 QTc: 446 Interpretive Statements SINUS TACHYCARDIA BASELINE ARTIFACT- I, II, III, AVR, AVL, AVF, V1-V3 ABNORMAL ECG Electronically Signed On 09-24-2021 6:04:08 CDT by Jet Tran D.O.
[2021-09-23 21:26] LABS: Hematocrit 53.3 % (42.0-52.0); Hemoglobin 17.9 g/dL (14.0-18.0); Mean Corpuscular HGB Conc 33.6 g/dl (32-36); Mean Corpuscular Hemoglobin 32.1 pg (26-34); Mean Corpuscular Volume 95.5 fl (80-100); Mean Platelet Volume 10.6 fl (7.4-10.4); Platelet Count Result 394 k/mm3 (150-375); Red Blood Count 5.58 M/mm3 (4.6-6.20); Red Cell Distribution Width 14.3 % (11.5-14.5); White Blood Count 20.7 K/mm3 (4.5-10.0)
[2021-09-23] MEDS: SODIUM CHLORIDE 0.9% IV 2,000 ML 999 ML IV CONT (21:34)
[2021-09-23 21:47] LABS: Albumin Level 5.7 g/dL (3.5-5.1); Albumin Level 5.8 g/dL (3.5-5.1); Alkaline Phosphatase 102 U/L (38-126); Alkaline Phosphatase 103 U/L (38-126); Anion Gap 30 mmol/L (8-16); Anion Gap 31 mmol/L (8-16); Aspartate Amino Transferase 149 U/L (17-59); Bilirubin,Total 0.7 mg/dL (0.2-1.3); Blood Urea Nitrogen 21 mg/dL (9-20); Calcium 10.4 mg/dL (8.4-10.2); Carbon Dioxide 12 mmol/L (22-30); Chloride 105 mmol/L (98-107); Estimated CRCL calculation 56 ml/min; Estimated CRCL calculation 59 ml/min; Estimated Glomerular Filt Rate 50; Estimated Glomerular Filt Rate 53; Glucose 164 mg/dL (65-110); Glucose 165 mg/dL (65-110); Potassium 4.9 mmol/L (3.4-5.0); Potassium 5.1 mmol/L (3.4-5.0); Sodium 147 mmol/L (137-145); Sodium 148 mmol/L (137-145)
[2021-09-23 21:48] LABS: Acetaminophen < 10 ug/mL (10-30); Ethanol < 10 mg/dL (<10); Salicylate < 1.0 mg/dL (2-20)
[2021-09-23 21:53] LABS: Band Neutrophils Percent 1 % (0-6); Lymphocytes Absolute Manual 0.41 K/mm3 (1.1-4.5); Monocytes Absolute Manual 1.03 K/mm3 (0.1-0.90); Monocytes Percent Manual 5 % (3-9); Neutrophils Absolute Manual 19.25 K/mm3 (1.3-6.7); Neutrophils Percent Manual 92 % (46-73); Platelet Estimate Increased (Adequate); Total Cells Counted 100
[2021-09-23 21:56] LABS: Add Urine Microscopic? YES; Appearance Urine Clear (Clear); Bacteria Urine Trace /hpf; Bilirubin Urine Negative (Negative); Blood Urine 1+ (Negative); Color Urine Yellow (Yellow); Glucose Urine UA Negative (Negative); Ketones Urine 1+ mg/dL (Negative); Leukocyte Esterase Ur Trace LEU/UL (Negative); Mucus Urine Rare /lpf; Nitrate Urine Positive (Negative); Protein Urine Negative (Negative); RBC Urine 0-2 /hpf (0-2); Squamous Epithelial Cell Urine Rare /hpf (Few); Urobilinogen Urine Negative mg/dL (<2.0); WBC Urine 21-30 /hpf
[2021-09-23 21:59] LABS: Valproic Acid 10.6 ug/mL (50-120)
[2021-09-23 22:02] LABS: Aspartate Amino Transferase 149 U/L (17-59)
[2021-09-23 22:03] LABS: Alanine Aminotransferase 149 U/L (4-50)
[2021-09-23 22:13] LABS: Alveolar/Arterial O2 Gradient 32.9 mmHg; Base Excess ABG -4.6 mEq/l (+/-2.0); Device ROOM AIR; Fractional Inspired Oxygen 21 %; HCO3 ABG 19.8 mEq/l (22.0-26.0); Modified Allen's Test Pass; Oxygen Content ABG 22.4 %vol (16.0-22.0); Oxygen Saturation ABG 94.6 % (95.0-100.0); Oxyhemoglobin 93.4 % THb (90.0-100.0); PCO2 ABG 35.4 mmHg (35.0-45.0); PO2 ABG 74.4 mmHg (80.0-100.0); PO2 FiO2 Ratio Arterial Blood 3.54 %; Site Drawn LEFT RADIAL; Total Hemoglobin 17.1 g/dL (12.0-18.0); pH ABG 7.366 (7.350-7.450)
[2021-09-23 22:15] LABS: Alanine Aminotransferase 92 U/L (4-50); Creatine Kinase 13779 U/L (55-170)
[2021-09-23 22:17] LABS: Amphetamine Screen Urine Negative (Negative); Barbiturate Screen Urine Negative (Negative); Benzodiazepines Screen Urine Positive (Negative); Cannabinoid Screen Urine Positive (Negative); Cocaine Screen Urine Negative (Negative); Methadone Screen Urine Negative (Negative); Opiate Screen Urine Negative (Negative); Phencyclidine Screen Urine Negative (Negative)
--- NOTE | 2021-09-23 22:29 | PC.NURSE ---
spoke with reymundo hernandez at poison control- re: buspirone, memantine, nootropics. She will fax information to the ED. memantine- mild to moderate -monitor for aggitation, confusion, dizzyness. severe- nystagmus, hallucinations, seizure, coma, resp. alkalosis. peaks at 3- 7 hrs, extended release peaks 9-12 hr. buspirone- peaks 40-90 minutes. monitor for h/a, drowsyness, dizzy, seizrue- in large od - rare. nootropics- generally tolerate well, not much information. Buspar & memantine poss. seratonin syndrome. recommend: hydrate, monitor ck, bicarb, 12 lead qrs/qt prolongation. Dr. Gaviria made aware.
[2021-09-23] MEDS: diazePAM INJ (*CRX) 10 MG/2 ML SYRINGE IV PUSH (22:38)
[2021-09-23] MEDS: SODIUM CHLORIDE 0.9% IV 1,000 ML 999 ML IV CONT (23:19)
[2021-09-24] VITALS (17 sets, daily range): BP systolic 117–198; BP diastolic 59–87; PULSE 79–125; RESP 15–21; TEMP 36.1–37.4; O2SAT 96–100; BMI 24.8
--- NOTE | 2021-09-24 00:05 | ED.AMS ---
HPI - Altered Mental Status General Chief Complaint: Altered Mental Status Stated Complaint: ams Time Seen by Provider: 09/23/21 21:09 Source: family and EMS Mode of arrival: EMS Limitations: clinical condition History of Present Illness HPI narrative: 25 year old male with history of schizophrenia and self medicating for symptoms arrives after mom came home from work and found patient face down on pillow on ground in his room. Various bottles of liquids and patient's medication bottles were brought in by EMS. Patient is prescribed cogentin, wellbutrin, depakote,ativan and lorazepam; last prescription date 08/26/21; not a significant amount of pills missing, in fact most pills have not been taken. Patient arrives with dry mucous membranes, tachycardia, staring off into space with fine tremors, Babinski negative. Unsure how long patient has been in this state, his mother states he was sleepy when she left for work this morning but still talking. MD complaint: altered mental status Related Data Home Medications Medication Instructions Recorded Confirmed benztropine 1 mg PO BID 09/01/21 09/01/21 bupropion HCl [Wellbutrin XL] 150 mg PO QAM 09/01/21 09/01/21 buspirone 15 mg PO BID 09/01/21 09/01/21 divalproex [Depakote] 250 mg PO Q12H 09/01/21 09/01/21 haloperidol 5 mg PO BID 09/01/21 09/01/21 lorazepam [Ativan] 0.5 mg PO BID PRN 09/01/21 09/01/21 propranolol 10 mg PO TID 09/01/21 09/01/21 Allergies Allergy/AdvReac Type Severity Reaction Status Date / Time No Known Allergies Allergy Mild Unverified 09/23/21 21:12 Review of Systems Review of Systems: ROS unobtainable: Yes unobtainable due to mental status PMFSH Past Medical History Medical History Depression with anxiety Schizophrenia Surgical History Surgical History Surgical history unknown Family History Family History Other Unknown family medical history Social History Social History Social History: The patient tells me that he has does not smoke or drink. He lives with his mother and he is listed as a full code. Code status full code. Smoking status: Never smoker Alcohol intake: never Substance use: current Substance use type: marijuana and other Spiritual care concerns: No Exam Narrative: General: ill appearing, pale, staring to the left Head: normocephalic, atraumatic Eyes: PERRLA B 4-2mm, anicteric, B injection ENT: dry mucous membranes, oropharynx patent, nasal congestion Neck: supple, trachea midline, no JVD Chest: equal chest rise bilaterally, no chest wall trauma noted Lungs: clear to auscultation bilaterally, respirations labored CV: tachycardia, no FREDI B, calf size equal bilaterally Abd: soft, non-distended, non-tender, no rebound, no gaurding EXT: no deformity noted, moving all extremities equally Skin: warm, dry, no pallor, multiple patches of erythema chest wall, hands Neuro: patient awake, not responding to commands, fine tremor, negative Babinski Course Course Emergency Course: Patient with a significant metabolic acidosis, tachycardia, anion gap of 30; Rhabdomyolysis with CPK 13k; IVF infusing; after 2.5 L of IVF anion gap is closed, Linda was placed with 900 ml output after and additional 500 ml IVF; fluids switched to LR due to hyperchloremia; patient responds well to diazepam, likely anticholinergic component to overdose. Valproic acid is low, patient did not overdose of valproic acid. Despite fluids patient remains tachycardic. Reevaluation(s) Reevaluation #1: Patient more alert after valium 10mg IV; will continue to monitor Date: 09/23/21 Time: 21:00 Consultations Consultation #1: Spoke with Dr Jackson will admit as overflow bed to ICU unless precedex is needed Date: 09/24/21 Time: 00:30 Cons
[2021-09-24 00:13] LABS: Alanine Aminotransferase 73 U/L (4-50); Albumin Level 3.9 g/dL (3.5-5.1); Alkaline Phosphatase 65 U/L (38-126); Anion Gap 9 mmol/L (8-16); Aspartate Amino Transferase 288 U/L (17-59); Bilirubin,Total 0.5 mg/dL (0.2-1.3); Blood Urea Nitrogen 18 mg/dL (9-20); Calcium 8.1 mg/dL (8.4-10.2); Carbon Dioxide 19 mmol/L (22-30); Chloride 115 mmol/L (98-107); Estimated CRCL calculation 93 ml/min; Estimated Glomerular Filt Rate > 60; Glucose 114 mg/dL (65-110); Potassium 4.6 mmol/L (3.4-5.0); Sodium 143 mmol/L (137-145)
[2021-09-24] MEDS: SODIUM CHLORIDE 0.9% IV 1,000 ML 999 ML IV CONT ×2 (00:25)
[2021-09-24] MEDS: diazePAM INJ (*CRX) 10 MG/2 ML SYRINGE IV PUSH (00:26)
[2021-09-24] MEDS: LACTATED RINGERS 1,000 ML 999 ML IV CONT ×2 (00:45)
--- NOTE | 2021-09-24 00:52 | PC.NURSE ---
Spoke with [place] poison control and updated them on the pt situation. New set of vitals and lab results given to poison control.
--- NOTE | 2021-09-24 00:56 | PM.IMHP ---
H&P: HPI History of Present Illness Date/Time: 09/24/21 00:56 Chief Complaint: AMS Narrative: 25-year-old male with past medical history of schizophrenia, depression and anxiety who presented to the ER with altered mental status. The patient is a poor historian, as such majority of history obtained from past medical records and ER documentation. The patient had been hospitalized at a psychiatric facility and was discharged 08/31/2021. He then presented to hospital 09/01/2021 due to suspected overdose of Wellbutrin and or Xanax. The patient presented back to the ER on the evening of the due to altered mental status. His mother came home from work and found the patient face down on a pillow on the ground in his room. He had various bottle cell liquids and medications surrounding him. The patient had been prescribed Cogentin, Wellbutrin, Depakote, Ativan and lorazepam dating back as far as 08/26/2021. Most of these pills were still until organized ARDS and in the patient's pill bottles. With very few pills were missing. The patient reports that he has been self medicating with synthetic benzodiazepines that he got off line. The patient had bottles of memantine and nootropics and vials of unknown liquids on him. Poison Control was contacted and reported that memantine could cause agitation, confusion, dizziness, nystagmus, hallucinations, seizures, coma and respiratory alkalosis. Effects peak at 3:27 a.m. and 9-12 hours for extended release. The nootropics are generally well tolerated and not much information is available. There was concern about possible serotonin syndrome with use bar and memantine. On arrival to the ER the patient had dry mucous membranes, tachycardia, and was staring off into space with fine motor tremors. The patient's mother reported that the patient was sleepy when she left for work in the morning but was still talking to her at that time. The patient having urinary retention, low-grade fever, tachycardia, red skin, change in mental status, dehydration, and pupillary dilatation. Anticholinergic poisoning was suspected. The patient subsequently received total of 20 mg of IV Valium with improvement in his mental status. He was found to be in rhabdomyolysis and received at least 6 L of IV fluid hydration. His repeat labs performed in the ER demonstrated resolution of anion gap acidosis and significant improvement in serum bicarb. The patient did complain of erythema of his right thumb and some swelling. He denied any known injury to his thumb. He reports that it felt somewhat tight and numb. He had fair range of motion of the digit in reported that it just felt stiff. He denied having any pain. He reported feeling extremely thirsty and was requesting something to drink. He denied having any difficulty urinating but was noted to have 900 mL in his bladder on bladder scan and had Linda catheter placed. He is adamant that he is not suicidal or homicidal. He feels he does not have schizophrenia and that his prior episodes of hallucinations were due to withdrawal from synthetic benzodiazepines. He denies any recent hallucinations. However the patient does not seem to be the most reliable historian. Review of Systems Review of Systems: 12 systems were reviewed with pertinent positives and negatives per HPI. Except as documented in the HPI, all other systems were reviewed and are negative. [facility] Past Medical History Medical History (Updated 09/24/21 @ 05:26 by Monica Barlow DO) Depression with anxiety Schizophrenia Surgical History Surgical History (Updated 09/24/21 @ 05:23 by Monica Barlow DO) No significant past surgical history Family History Family History Other Unknown family medical history Social History Social History (Updated 09/24/21 @ 05:24 by Monica Barlow DO) Social History: He lives with his mother and has been unemployed for at
--- NOTE | 2021-09-24 03:03 | PC.NURSE ---
This patient, Lokesh Wyatt, was admitted to Intensive Care Unit-9. Patient/family oriented to hospital policies and general routines including ID bracelet, bed and alarms, visiting hours, pain management, procedures, bathroom and other care routines, personal items, smoking policy, room service/diet, and visiting hours. Information on how to activate the Rapid Response Team has been discussed. Patient/Family are encouraged to report perceived risks to care and to ask questions if they do not understand what they are told or what they should do.
[2021-09-24] MEDS: LACTATED RINGERS 1,000 ML 200 ML (03:15)
[2021-09-24 05:08] LABS: Hematocrit 40.2 % (42.0-52.0); Hemoglobin 13.3 g/dL (14.0-18.0); Mean Corpuscular HGB Conc 33.1 g/dl (32-36); Mean Corpuscular Hemoglobin 32.2 pg (26-34); Mean Corpuscular Volume 97.3 fl (80-100); Mean Platelet Volume 10.5 fl (7.4-10.4); Platelet Count Result 226 k/mm3 (150-375); Red Blood Count 4.13 M/mm3 (4.6-6.20); Red Cell Distribution Width 14.5 % (11.5-14.5); White Blood Count 14.7 K/mm3 (4.5-10.0)
--- NOTE | 2021-09-24 05:27 | ECG_ITS ---
Measurements Intervals [place] Rate: 87 P: 53 MN: 116 QRS: 45 QRSD: 102 T: 39 QT: 355 QTc: 427 Interpretive Statements SINUS RHYTHM BASELINE WANDER- I, III NORMAL ECG Electronically Signed On 09-24-2021 9:14:33 CDT by Jet Tran D.O.
[2021-09-24 05:36] LABS: Alanine Aminotransferase 87 U/L (4-50); Albumin Level 3.4 g/dL (3.5-5.1); Alkaline Phosphatase 57 U/L (38-126); Anion Gap 9 mmol/L (8-16); Aspartate Amino Transferase 500 U/L (17-59); Bilirubin,Total 0.6 mg/dL (0.2-1.3); Blood Urea Nitrogen 14 mg/dL (9-20); Calcium 8.1 mg/dL (8.4-10.2); Carbon Dioxide 23 mmol/L (22-30); Chloride 111 mmol/L (98-107); Estimated CRCL calculation 124 ml/min; Estimated Glomerular Filt Rate > 60; Glucose 101 mg/dL (65-110); Potassium 3.7 mmol/L (3.4-5.0); Sodium 143 mmol/L (137-145)
[2021-09-24 06:04] LABS: Creatine Kinase > 24000 U/L (55-170)
[2021-09-24 07:23] LABS: Partial Thromboplastin Time 23.8 SECONDS (22.3-36.8); Prothrombin Time 12.8 Seconds (11.1-14.7)
[2021-09-24] MEDS: LACTATED RINGERS 1,000 ML 200 ML IV CONT ×4 (09:00→23:49)
[2021-09-24] MEDS: ENOXAPARIN 40 MG/0.4 ML SYRINGE SUB-Q (10:52)
--- NOTE | 2021-09-24 12:22 | PM.IMPN ---
Progress Note: A&P Assessment and Plan (1) Poisoning by anticholinergic drug: Code(s): T44.3X1A - Poisoning by other parasympatholytics [anticholinergics and antimuscarinics] and spasmolytics, accidental (unintentional), initial encounter Status: Acute Assessment and Plan: Symptoms improved after aggressive IV fluid hydration and diazepam administration. Patient has been admitted to the ICU as IMU overflow. Continue aggressive IV fluid hydration with LR at 200 mL an hour. Monitor repeat labs and EKG to monitor QT interval. (2) Secondary rhabdomyolysis: Code(s): M62.82 - Rhabdomyolysis Status: Acute Assessment and Plan: Rhabdomyolysis secondary to prolonged immobility/down time and or result of anticholinergic toxicity. Patient received at least 6 L of IV fluids in the ER resolution of anion gap and significant been improvement in serum bicarb. Continue Linda catheter and monitor urine output closely. (3) Metabolic acidosis: Code(s): E87.2 - Acidosis Status: Acute Assessment and Plan: Please see above plan. (4) Urine retention: Code(s): R33.9 - Retention of urine, unspecified Status: Acute Assessment and Plan: Continue Linda catheter for the short term. (5) Schizophrenia: Qualifiers: Schizophrenia type: unspecified Qualified Code(s): F20.9 - Schizophrenia, unspecified Code(s): F20.9 - Schizophrenia, unspecified Status: Chronic Assessment and Plan: The patient's psychiatric medications are on hold. It does not appear that he is actually overdosed on these medications as he has the majority of the pills left that were prescribed in early August. However with height to the for restarting medications until his current anticholinergic toxicity has resolved. (6) Depression with anxiety: Code(s): F41.8 - Other specified anxiety disorders Status: Chronic Assessment and Plan: Please see above plan. (7) Hand erythema: Code(s): L53.9 - Erythematous condition, unspecified Status: Acute Assessment and Plan: The patient has left thumb and palmar erythema and edema. I suspect this is due to compression from when he was unresponsive and altered. The patient's white count has improved significantly without antibiotic therapy to only IV fluid hydration. Most the leukocytosis appears to be due to hemoconcentration. The patient has had a mildly elevated temperature but again the likely due to anticholinergic toxicity. (8) Acute kidney injury: Code(s): N17.9 - Acute kidney failure, unspecified Status: Acute Assessment and Plan: Due to rhabdomyolysis and urinary retention. Will continue monitor urine output closely. Continue aggressive IV fluid hydration. Renal function back to normal Subjective Date/time seen: 09/24/21 12:22 Interval history: HPI:25-year-old male with past medical history of schizophrenia, depression and anxiety who presented to the ER with altered mental status. The patient is a poor historian, as such majority of history obtained from past medical records and ER documentation. The patient had been hospitalized at a psychiatric facility and was discharged 08/31/2021. He then presented to hospital 09/01/2021 due to suspected overdose of Wellbutrin and or Xanax. The patient presented back to the ER on the evening of the due to altered mental status. His mother came home from work and found the patient face down on a pillow on the ground in his room. He had various bottle cell liquids and medications surrounding him. The patient had been prescribed Cogentin, Wellbutrin, Depakote, Ativan and lorazepam dating back as far as 08/26/2021. Most of these pills were still until organized ARDS and in the patient's pill bottles. With very few pills were missing. The patient reports that he has been self m
--- NOTE | 2021-09-24 14:30 | PC.NURSE ---
This patient, Lokesh Wyatt, was transferred to [ imu [id number]] on 09/24/21 at 1430. Personal belongings sent with patient. Report given to [ mustapha [email or web address]]. Appropriate documentation sent with patient.
[2021-09-24] MEDS: LORazepam INJ (*CRX) 2 MG/ML VIAL 1 MG IV PUSH ×2 (15:40→21:54)
[2021-09-24 16:32] LABS: Alanine Aminotransferase 88 U/L (4-50); Aspartate Amino Transferase 571 U/L (17-59)
[2021-09-25] VITALS (15 sets, daily range): BP systolic 120–135; BP diastolic 66–81; PULSE 82–110; RESP 12–16; TEMP 36.3–36.9; O2SAT 98–100
[2021-09-25] MEDS: LORazepam INJ (*CRX) 2 MG/ML VIAL 1 MG IV PUSH ×4 (03:51→22:57)
[2021-09-25] MEDS: LACTATED RINGERS 1,000 ML 200 ML IV CONT ×2 (04:47→09:53)
[2021-09-25 05:51] LABS: Basophils Percent Auto 0.1 % (0.2-1.2); Eosinophils Percent Auto 0.4 % (0-4.4); Hematocrit 39.6 % (42.0-52.0); Hemoglobin 13.1 g/dL (14.0-18.0); Immature Granulocyte Absolute 0.04 K/mm3 (0.00-0.031); Immature Granulocyte Percent A 0.5 % (0-0.5); Lymphocytes Percent Auto 12.6 % (18.3-44.2); Mean Corpuscular HGB Conc 33.1 g/dl (32-36); Mean Corpuscular Hemoglobin 32.2 pg (26-34); Mean Corpuscular Volume 97.3 fl (80-100); Mean Platelet Volume 10.1 fl (7.4-10.4); Monocytes Absolute Auto 1.4 K/mm3 (0.1-0.6); Monocytes Percent Auto 17.6 % (2.6-8.5); Neutrophils Absolute Auto 5.5 K/mm3 (1.3-6.7); Neutrophils Percent Auto 68.8 % (45.5-73.1); Platelet Count Result 190 k/mm3 (150-375); Red Blood Count 4.07 M/mm3 (4.6-6.20); Red Cell Distribution Width 13.8 % (11.5-14.5)
[2021-09-25 06:05] LABS: Alanine Aminotransferase 104 U/L (4-50); Albumin Level 3.7 g/dL (3.5-5.1); Alkaline Phosphatase 53 U/L (38-126); Anion Gap 8 mmol/L (8-16); Aspartate Amino Transferase 561 U/L (17-59); Bilirubin,Total 0.8 mg/dL (0.2-1.3); Blood Urea Nitrogen 6 mg/dL (9-20); Calcium 8.5 mg/dL (8.4-10.2); Carbon Dioxide 27 mmol/L (22-30); Chloride 101 mmol/L (98-107); Estimated CRCL calculation 190 ml/min; Estimated Glomerular Filt Rate > 60; Glucose 97 mg/dL (65-110); Potassium 3.5 mmol/L (3.4-5.0); Sodium 136 mmol/L (137-145)
[2021-09-25 07:11] LABS: Creatine Kinase > 24000 U/L (55-170)
[2021-09-25] MEDS: ENOXAPARIN 40 MG/0.4 ML SYRINGE SUB-Q (08:46)
[2021-09-25 12:23] LABS: Glucose Point of Care 142 mg/dl (65-105)
--- NOTE | 2021-09-25 12:24 | PC.NURSE ---
Addendum entered by Trisha Ling RN 09/25/21 13:26: Dr. Camacho also ok'ed leaving the cao in until urine production slows. Original Note: Contacted Dr. Camacho to notify him of increased urine output. Patient has had 7600 output at this time, with a balance of -3420. Decreased Lactated Ringers as per Doctor's instructions.
--- NOTE | 2021-09-25 14:10 | P.PNIM_ITS ---
Progress Note: A&P Assessment and Plan (1) Poisoning by anticholinergic drug: Code(s): T44.3X1A - Poisoning by other parasympatholytics [anticholinergics and antimuscarinics] and spasmolytics, accidental (unintentional), initial encounter Status: Acute Assessment and Plan: * Symptoms improved after aggressive IV fluid hydration and diazepam administration. * Patient has been admitted to the ICU as IMU overflow. * Continue aggressive IV fluid hydration with LR at 200 mL an hour. [place] LR 150 mL an hour * Monitor repeat labs and EKG to monitor QT interval. QT interval is normal (2) Secondary rhabdomyolysis: Code(s): M62.82 - Rhabdomyolysis Status: Acute Assessment and Plan: * Rhabdomyolysis secondary to prolonged immobility/down time and or result of anticholinergic toxicity. * Patient received at least 6 L of IV fluids in the ER resolution of anion gap and significant been improvement in serum bicarb. * Continue Linda catheter and monitor urine output closely. (3) Metabolic acidosis: Code(s): E87.2 - Acidosis Status: Acute Assessment and Plan: * Please see above plan. (4) Urine retention: Code(s): R33.9 - Retention of urine, unspecified Status: Acute Assessment and Plan: * Continue Linda catheter for the short term. (5) Schizophrenia: Qualifiers: Schizophrenia type: unspecified Qualified Code(s): F20.9 - Schizophrenia, unspecified Code(s): F20.9 - Schizophrenia, unspecified Status: Chronic Assessment and Plan: * The patient's psychiatric medications are on hold. It does not appear that he is actually overdosed on these medications as he has the majority of the pills left that were prescribed in early August. However with height to the for restarting medications until his current anticholinergic toxicity has resolved. (6) Depression with anxiety: Code(s): F41.8 - Other specified anxiety disorders Status: Chronic Assessment and Plan: * Please see above plan. (7) Hand erythema: Code(s): L53.9 - Erythematous condition, unspecified Status: Acute Assessment and Plan: * The patient has left thumb and palmar erythema and edema. I suspect this is due to compression from when he was unresponsive and altered. The patient's white count has improved significantly without antibiotic therapy to only IV fluid hydration. Most the leukocytosis appears to be due to hemoconcentration. * The patient has had a mildly elevated temperature but again the likely due to anticholinergic toxicity. Will check MRI obtained for further evaluation? Muscle injury none left hand (8) Acute kidney injury: Code(s): N17.9 - Acute kidney failure, unspecified Status: Acute Assessment and Plan: * Due to rhabdomyolysis and urinary retention. * Will continue monitor urine output closely. * Continue aggressive IV fluid hydration. * Renal function back to normal Subjective Date/time seen: 09/25/21 14:10 Interval history: HPI:25-year-old male with past medical history of schizophren ia, depression and anxiety who presented to the ER with altered mental status. The patient is a poor historian, as such majority of history obtained from past medical records and ER documentation. The patient had been hospitalized at a psychiatric facility and was discharged 08/31/2021. He then presented to hospital 09/01/2021 due to suspect
--- NOTE | 2021-09-25 14:10 | PM.IMPN ---
Progress Note: A&P Assessment and Plan (1) Poisoning by anticholinergic drug: Code(s): T44.3X1A - Poisoning by other parasympatholytics [anticholinergics and antimuscarinics] and spasmolytics, accidental (unintentional), initial encounter Status: Acute Assessment and Plan: Symptoms improved after aggressive IV fluid hydration and diazepam administration. Patient has been admitted to the ICU as IMU overflow. Continue aggressive IV fluid hydration with LR at 200 mL an hour. [place] LR 150 mL an hour Monitor repeat labs and EKG to monitor QT interval. QT interval is normal (2) Secondary rhabdomyolysis: Code(s): M62.82 - Rhabdomyolysis Status: Acute Assessment and Plan: Rhabdomyolysis secondary to prolonged immobility/down time and or result of anticholinergic toxicity. Patient received at least 6 L of IV fluids in the ER resolution of anion gap and significant been improvement in serum bicarb. Continue Linda catheter and monitor urine output closely. (3) Metabolic acidosis: Code(s): E87.2 - Acidosis Status: Acute Assessment and Plan: Please see above plan. (4) Urine retention: Code(s): R33.9 - Retention of urine, unspecified Status: Acute Assessment and Plan: Continue Linda catheter for the short term. (5) Schizophrenia: Qualifiers: Schizophrenia type: unspecified Qualified Code(s): F20.9 - Schizophrenia, unspecified Code(s): F20.9 - Schizophrenia, unspecified Status: Chronic Assessment and Plan: The patient's psychiatric medications are on hold. It does not appear that he is actually overdosed on these medications as he has the majority of the pills left that were prescribed in early August. However with height to the for restarting medications until his current anticholinergic toxicity has resolved. (6) Depression with anxiety: Code(s): F41.8 - Other specified anxiety disorders Status: Chronic Assessment and Plan: Please see above plan. (7) Hand erythema: Code(s): L53.9 - Erythematous condition, unspecified Status: Acute Assessment and Plan: The patient has left thumb and palmar erythema and edema. I suspect this is due to compression from when he was unresponsive and altered. The patient's white count has improved significantly without antibiotic therapy to only IV fluid hydration. Most the leukocytosis appears to be due to hemoconcentration. The patient has had a mildly elevated temperature but again the likely due to anticholinergic toxicity. Will check MRI obtained for further evaluation? Muscle injury none left hand (8) Acute kidney injury: Code(s): N17.9 - Acute kidney failure, unspecified Status: Acute Assessment and Plan: Due to rhabdomyolysis and urinary retention. Will continue monitor urine output closely. Continue aggressive IV fluid hydration. Renal function back to normal Subjective Date/time seen: 09/25/21 14:10 Interval history: HPI:25-year-old male with past medical history of schizophrenia, depression and anxiety who presented to the ER with altered mental status. The patient is a poor historian, as such majority of history obtained from past medical records and ER documentation. The patient had been hospitalized at a psychiatric facility and was discharged 08/31/2021. He then presented to hospital 09/01/2021 due to suspected overdose of Wellbutrin and or Xanax. The patient presented back to the ER on the evening of the due to altered mental status. His mother came home from work and found the patient face down on a pillow on the ground in his room. He had various bottle cell liquids and medications surrounding him. The patient had been prescribed Cogentin, Wellbutrin, Depakote, Ativan and lorazepam dating back as far as 08/26/2021. Most of these pills were still until org
[2021-09-25] MEDS: LACTATED RINGERS 1,000 ML 150 ML IV CONT ×2 (17:07→22:56)
[2021-09-25 18:39] LABS: Creatinine Urine 9.4 mg/dL; Total Protein Urine Random 15 mg/dL
[2021-09-25 18:53] LABS: Potassium Urine Random 5.2 meq/L; Sodium Urine Random 53 meq/L
[2021-09-25 18:57] LABS: Urea Random Urine < 67 MG/DL
[2021-09-25 19:22] LABS: Anion Gap 5 mmol/L (8-16); Blood Urea Nitrogen 7 mg/dL (9-20); Calcium 8.8 mg/dL (8.4-10.2); Carbon Dioxide 30 mmol/L (22-30); Chloride 103 mmol/L (98-107); Estimated CRCL calculation 161 ml/min; Estimated Glomerular Filt Rate > 60; Glucose 104 mg/dL (65-110); Magnesium 1.8 mg/dL (1.6-2.3); Phosphorus 3.4 mg/dL (2.5-4.5); Potassium 3.6 mmol/L (3.4-5.0); Sodium 138 mmol/L (137-145)
[2021-09-26] VITALS (13 sets, daily range): BP systolic 118–138; BP diastolic 59–73; PULSE 80–108; RESP 14–18; TEMP 36.1–36.8; O2SAT 97–100
--- NOTE | 2021-09-26 01:07 | PC.NURSE ---
Daylight Savings Time For Daylight Savings Time Ending in the Fall - Clocks are moved back. For Daylight Savings Time Beginning in the Spring - Clocks are moved ahead. For [facility], the time of change occurs at 0200 hrs. Time is taken from the dietary server. This entry on the patient's chart recognizes the change in time reflected during documentation. Example: 2 entries for vital signs may be charted for 0200 hrs.
[2021-09-26] MEDS: LORazepam INJ (*CRX) 2 MG/ML VIAL 1 MG IV PUSH ×3 (04:25→18:29)
[2021-09-26] MEDS: LACTATED RINGERS 1,000 ML 150 ML IV CONT ×3 (05:25→20:09)
[2021-09-26 06:10] LABS: Basophils Percent Auto 0.7 % (0.2-1.2); Eosinophils Absolute Auto 0.1 K/mm3 (0-0.3); Eosinophils Percent Auto 1.7 % (0-4.4); Hematocrit 41.4 % (42.0-52.0); Hemoglobin 12.9 g/dL (14.0-18.0); Immature Granulocyte Absolute 0.03 K/mm3 (0.00-0.031); Immature Granulocyte Percent A 0.6 % (0-0.5); Lymphocytes Absolute Auto 1.11 K/mm3 (0.9-3.2); Lymphocytes Percent Auto 20.6 % (18.3-44.2); Mean Corpuscular HGB Conc 31.2 g/dl (32-36); Mean Corpuscular Hemoglobin 32.7 pg (26-34); Mean Corpuscular Volume 105.1 fl (80-100); Mean Platelet Volume 10.6 fl (7.4-10.4); Monocytes Absolute Auto 1.1 K/mm3 (0.1-0.6); Neutrophils Percent Auto 56.4 % (45.5-73.1); Nucleated Red Blood Cells Perc 0.6 % (0.0-0.2); Platelet Count Result 179 k/mm3 (150-375); Red Blood Count 3.94 M/mm3 (4.6-6.20); Red Cell Distribution Width 13.7 % (11.5-14.5); White Blood Count 5.4 K/mm3 (4.5-10.0)
[2021-09-26 06:45] LABS: Alanine Aminotransferase 92 U/L (4-50); Albumin Level 3.4 g/dL (3.5-5.1); Alkaline Phosphatase 53 U/L (38-126); Anion Gap 7 mmol/L (8-16); Aspartate Amino Transferase 249 U/L (17-59); Bilirubin,Total 0.6 mg/dL (0.2-1.3); Blood Urea Nitrogen 7 mg/dL (9-20); Calcium 8.4 mg/dL (8.4-10.2); Carbon Dioxide 25 mmol/L (22-30); Chloride 105 mmol/L (98-107); Estimated CRCL calculation 186 ml/min; Estimated Glomerular Filt Rate > 60; Glucose 93 mg/dL (65-110); Potassium 3.5 mmol/L (3.4-5.0); Sodium 137 mmol/L (137-145)
[2021-09-26 07:37] LABS: Creatine Kinase 13813 U/L (55-170)
[2021-09-26] MEDS: ENOXAPARIN 40 MG/0.4 ML SYRINGE SUB-Q (08:54)
--- NOTE | 2021-09-26 15:52 | PM.IMPN ---
Progress Note: A&P Assessment and Plan (1) Poisoning by anticholinergic drug: Code(s): T44.3X1A - Poisoning by other parasympatholytics [anticholinergics and antimuscarinics] and spasmolytics, accidental (unintentional), initial encounter Status: Acute Assessment and Plan: Symptoms improved after aggressive IV fluid hydration and diazepam administration. Patient has been admitted to the ICU as IMU overflow. Continue aggressive IV fluid hydration. Continue LR 150 mL an hour Monitor repeat labs and EKG to monitor QT interval. QT interval is normal (2) Secondary rhabdomyolysis: Code(s): M62.82 - Rhabdomyolysis Status: Acute Assessment and Plan: Rhabdomyolysis secondary to prolonged immobility/down time and or result of anticholinergic toxicity. Patient received at least 6 L of IV fluids in the ER resolution of anion gap and significant been improvement in serum bicarb. Continue Linda catheter and monitor urine output closely. (3) Metabolic acidosis: Code(s): E87.2 - Acidosis Status: Acute Assessment and Plan: Please see above plan. (4) Urine retention: Code(s): R33.9 - Retention of urine, unspecified Status: Acute Assessment and Plan: Continue Linda catheter for the short term. (5) Schizophrenia: Qualifiers: Schizophrenia type: unspecified Qualified Code(s): F20.9 - Schizophrenia, unspecified Code(s): F20.9 - Schizophrenia, unspecified Status: Chronic Assessment and Plan: The patient's psychiatric medications are on hold. It does not appear that he is actually overdosed on these medications as he has the majority of the pills left that were prescribed in early August. However with height to the for restarting medications until his current anticholinergic toxicity has resolved. (6) Depression with anxiety: Code(s): F41.8 - Other specified anxiety disorders Status: Chronic Assessment and Plan: Please see above plan. (7) Hand erythema: Code(s): L53.9 - Erythematous condition, unspecified Status: Acute Assessment and Plan: The patient has left thumb and palmar erythema and edema. I suspect this is due to compression from when he was unresponsive and altered. The patient's white count has improved significantly without antibiotic therapy to only IV fluid hydration. Most the leukocytosis appears to be due to hemoconcentration. The patient has had a mildly elevated temperature but again the likely due to anticholinergic toxicity. Will check MRI obtained for further evaluation? Muscle injury none left hand MRI with myositis likely due to rhabdomyolysis (8) Acute kidney injury: Code(s): N17.9 - Acute kidney failure, unspecified Status: Acute Assessment and Plan: Due to rhabdomyolysis and urinary retention. Will continue monitor urine output closely. Continue aggressive IV fluid hydration. Renal function back to normal (9) Polyuria: Code(s): R35.89 - Other polyuria Status: Acute Assessment and Plan: Could be postobstructive diuresis versus solute diuresis. Urine osmolality ordered and is pending Continue IV fluids to prevent dehydration Anticipate slow improvement Will continue to monitor Subjective Date/time seen: 09/26/21 15:52 Interval history: HPI:25-year-old male with past medical history of schizophrenia, depression and anxiety who presented to the ER with altered mental status. The patient is a poor historian, as such majority of history obtained from past medical records and ER documentation. The patient had been hospitalized at a psychiatric facility and was discharged 08/31/2021. He then presented to hospital 09/01/2021 due to suspected overdose of Wellbutrin and or Xanax. The patient presented back to the ER on the evening of the due to altered mental status. His m
[2021-09-27] VITALS (9 sets, daily range): BP systolic 110–129; BP diastolic 60–77; PULSE 75–96; RESP 16–24; TEMP 36.9–37.3; O2SAT 97–99
[2021-09-27] MEDS: LORazepam INJ (*CRX) 2 MG/ML VIAL 1 MG IV PUSH ×3 (00:34→18:01)
[2021-09-27] MEDS: LACTATED RINGERS 1,000 ML 150 ML IV CONT (04:00)
[2021-09-27 05:20] LABS: Basophils Percent Auto 0.3 % (0.2-1.2); Eosinophils Absolute Auto 0.2 K/mm3 (0-0.3); Eosinophils Percent Auto 3.2 % (0-4.4); Hematocrit 41.2 % (42.0-52.0); Hemoglobin 13.5 g/dL (14.0-18.0); Immature Granulocyte Absolute 0.03 K/mm3 (0.00-0.031); Immature Granulocyte Percent A 0.4 % (0-0.5); Lymphocytes Absolute Auto 1.46 K/mm3 (0.9-3.2); Lymphocytes Percent Auto 20.3 % (18.3-44.2); Mean Corpuscular HGB Conc 32.8 g/dl (32-36); Mean Corpuscular Hemoglobin 31.9 pg (26-34); Mean Corpuscular Volume 97.4 fl (80-100); Mean Platelet Volume 10.3 fl (7.4-10.4); Monocytes Absolute Auto 1.1 K/mm3 (0.1-0.6); Monocytes Percent Auto 15.2 % (2.6-8.5); Neutrophils Absolute Auto 4.4 K/mm3 (1.3-6.7); Neutrophils Percent Auto 60.6 % (45.5-73.1); Platelet Count Result 223 k/mm3 (150-375); Red Blood Count 4.23 M/mm3 (4.6-6.20); Red Cell Distribution Width 13.4 % (11.5-14.5); White Blood Count 7.2 K/mm3 (4.5-10.0)
[2021-09-27 06:28] LABS: Alanine Aminotransferase 75 U/L (4-50); Albumin Level 3.6 g/dL (3.5-5.1); Alkaline Phosphatase 57 U/L (38-126); Anion Gap 5 mmol/L (8-16); Aspartate Amino Transferase 128 U/L (17-59); Bilirubin,Total 0.5 mg/dL (0.2-1.3); Blood Urea Nitrogen 9 mg/dL (9-20); Calcium 8.5 mg/dL (8.4-10.2); Carbon Dioxide 28 mmol/L (22-30); Chloride 104 mmol/L (98-107); Creatine Kinase 7701 U/L (55-170); Estimated CRCL calculation 161 ml/min; Estimated Glomerular Filt Rate > 60; Glucose 104 mg/dL (65-110); Potassium 3.6 mmol/L (3.4-5.0); Sodium 137 mmol/L (137-145)
[2021-09-27] MEDS: ENOXAPARIN 40 MG/0.4 ML SYRINGE SUB-Q (07:53)
[2021-09-27] MEDS: LACTATED RINGERS 1,000 ML 100 ML IV CONT ×2 (07:57→23:55)
--- NOTE | 2021-09-27 15:25 | PM.IMPN ---
Progress Note: A&P Assessment and Plan (1) Poisoning by anticholinergic drug: Code(s): T44.3X1A - Poisoning by other parasympatholytics [anticholinergics and antimuscarinics] and spasmolytics, accidental (unintentional), initial encounter Status: Acute Assessment and Plan: Symptoms improved after aggressive IV fluid hydration and diazepam administration. Patient has been admitted to the ICU as IMU overflow. Continue aggressive IV fluid hydration. Continue LR 150 mL an hour Will lower his LR to 75 mL an hour Monitor repeat labs and EKG to monitor QT interval. QT interval is normal (2) Secondary rhabdomyolysis: Code(s): M62.82 - Rhabdomyolysis Status: Acute Assessment and Plan: Rhabdomyolysis secondary to prolonged immobility/down time and or result of anticholinergic toxicity. Patient received at least 6 L of IV fluids in the ER resolution of anion gap and significant been improvement in serum bicarb. Continue Linda catheter and monitor urine output closely. CK level is improving down to 7000 today (3) Metabolic acidosis: Code(s): E87.2 - Acidosis Status: Acute Assessment and Plan: Please see above plan. This has resolved now (4) Urine retention: Code(s): R33.9 - Retention of urine, unspecified Status: Acute Assessment and Plan: Continue Linda catheter for the short term. (5) Schizophrenia: Qualifiers: Schizophrenia type: unspecified Qualified Code(s): F20.9 - Schizophrenia, unspecified Code(s): F20.9 - Schizophrenia, unspecified Status: Chronic Assessment and Plan: The patient's psychiatric medications are on hold. It does not appear that he is actually overdosed on these medications as he has the majority of the pills left that were prescribed in early August. However with height to the for restarting medications until his current anticholinergic toxicity has resolved. (6) Depression with anxiety: Code(s): F41.8 - Other specified anxiety disorders Status: Chronic Assessment and Plan: Please see above plan. (7) Hand erythema: Code(s): L53.9 - Erythematous condition, unspecified Status: Acute Assessment and Plan: The patient has left thumb and palmar erythema and edema. I suspect this is due to compression from when he was unresponsive and altered. The patient's white count has improved significantly without antibiotic therapy to only IV fluid hydration. Most the leukocytosis appears to be due to hemoconcentration. The patient has had a mildly elevated temperature but again the likely due to anticholinergic toxicity. Will check MRI obtained for further evaluation? Muscle injury none left hand MRI with myositis likely due to rhabdomyolysis Supportive management (8) Acute kidney injury: Code(s): N17.9 - Acute kidney failure, unspecified Status: Acute Assessment and Plan: Due to rhabdomyolysis and urinary retention. Will continue monitor urine output closely. Continue aggressive IV fluid hydration. Renal function back to normal (9) Polyuria: Code(s): R35.89 - Other polyuria Status: Acute Assessment and Plan: Could be postobstructive diuresis versus solute diuresis. Urine osmolality ordered and is pending Continue IV fluids to prevent dehydration Anticipate slow improvement Will continue to monitor Urine osmolality is still pending however suspect solute diuresis causing his polyuria. Will lower his normal saline infusion to 75 cc an hour. Subjective Date/time seen: 09/27/21 15:25 Interval history: HPI:25-year-old male with past medical history of schizophrenia, depression and anxiety who presented to the ER with altered mental status. The patient is a poor historian, as such majority of history obtained from past medical records and ER documentation. The patient had bee
--- NOTE | 2021-09-27 19:51 | PC.NURSE ---
This patient, Lokesh Wyatt, was transferred to [[id number] ] on 09/27/21 at 1935. Personal belongings sent with patient. Report given to [Jennifer WHITE ]. Appropriate documentation sent with patient.
[2021-09-28] MEDS: LORazepam INJ (*CRX) 2 MG/ML VIAL 1 MG IV PUSH ×2 (05:36→13:57)
[2021-09-28 05:44] LABS: Basophils Percent Auto 0.3 % (0.2-1.2); Eosinophils Absolute Auto 0.4 K/mm3 (0-0.3); Eosinophils Percent Auto 5.8 % (0-4.4); Hematocrit 42.8 % (42.0-52.0); Hemoglobin 14.2 g/dL (14.0-18.0); Immature Granulocyte Absolute 0.06 K/mm3 (0.00-0.031); Immature Granulocyte Percent A 0.8 % (0-0.5); Lymphocytes Absolute Auto 1.49 K/mm3 (0.9-3.2); Lymphocytes Percent Auto 20.8 % (18.3-44.2); Mean Corpuscular HGB Conc 33.2 g/dl (32-36); Mean Corpuscular Hemoglobin 31.9 pg (26-34); Mean Corpuscular Volume 96.2 fl (80-100); Mean Platelet Volume 10.2 fl (7.4-10.4); Monocytes Percent Auto 13.8 % (2.6-8.5); Neutrophils Absolute Auto 4.2 K/mm3 (1.3-6.7); Neutrophils Percent Auto 58.5 % (45.5-73.1); Platelet Count Result 230 k/mm3 (150-375); Red Blood Count 4.45 M/mm3 (4.6-6.20); Red Cell Distribution Width 13.4 % (11.5-14.5); White Blood Count 7.2 K/mm3 (4.5-10.0)
[2021-09-28 05:56] LABS: Alanine Aminotransferase 67 U/L (4-50); Albumin Level 3.6 g/dL (3.5-5.1); Alkaline Phosphatase 60 U/L (38-126); Anion Gap 6 mmol/L (8-16); Aspartate Amino Transferase 78 U/L (17-59); Bilirubin,Total 0.6 mg/dL (0.2-1.3); Blood Urea Nitrogen 9 mg/dL (9-20); Calcium 8.8 mg/dL (8.4-10.2); Carbon Dioxide 27 mmol/L (22-30); Chloride 104 mmol/L (98-107); Estimated CRCL calculation 161 ml/min; Estimated Glomerular Filt Rate > 60; Glucose 101 mg/dL (65-110); Potassium 3.7 mmol/L (3.4-5.0); Sodium 137 mmol/L (137-145)
[2021-09-28 06:00] VITALS: BP 112/60; PULSE 89; RESP 20; TEMP 36.3; O2SAT 98
[2021-09-28 06:12] LABS: Creatine Kinase 3001 U/L (55-170)
[2021-09-28] MEDS: ENOXAPARIN 40 MG/0.4 ML SYRINGE SUB-Q (08:07)
[2021-09-28] MEDS: LACTATED RINGERS 1,000 ML 75 ML IV CONT (12:22)
[2021-09-28 14:00] VITALS: BP 118/62; PULSE 80; RESP 18; TEMP 36.9; O2SAT 98
--- NOTE | 2021-09-28 15:22 | PM.IMPN ---
Progress Note: A&P Assessment and Plan (1) Poisoning by anticholinergic drug: Code(s): T44.3X1A - Poisoning by other parasympatholytics [anticholinergics and antimuscarinics] and spasmolytics, accidental (unintentional), initial encounter Status: Acute Assessment and Plan: Symptoms improved after aggressive IV fluid hydration and Ativan administration. Continue aggressive IV fluid hydration for rhabdomyolysis, and was decreased to 75 cc an hour for last few days. Continue monitoring symptoms. The patient sees a psychiatrist locally and has been having meetings via zoom. The patient's mother is going to talk to the psychiatrist about outpatient options for him to attend to seek further help. I a.m. working on decreasing his benzodiazepine use here in the hospital since he is receiving Ativan 1 mg IV every 6 hours as needed for anxiety, he is having this about 3 times per day. I will decrease it to 0.5 mg every 6 hours. Continue monitoring. (2) Secondary rhabdomyolysis: Code(s): M62.82 - Rhabdomyolysis Status: Acute Assessment and Plan: Rhabdomyolysis secondary to prolonged immobility/down time and or result of anticholinergic toxicity. Patient received at least 6 L of IV fluids in the ER resolution of anion gap and significant been improvement in serum bicarb. Will discontinue Linda catheter at this time. CK level as at 3000. Urine is clear. Will recheck in the morning. (3) Metabolic acidosis: Code(s): E87.2 - Acidosis Status: Acute Assessment and Plan: Please see above plan. This has resolved now (4) Urine retention: Code(s): R33.9 - Retention of urine, unspecified Status: Acute Assessment and Plan: Continue Linda catheter for the short term. (5) Schizophrenia: Qualifiers: Schizophrenia type: unspecified Qualified Code(s): F20.9 - Schizophrenia, unspecified Code(s): F20.9 - Schizophrenia, unspecified Status: Chronic Assessment and Plan: The patient's psychiatric medications are on hold. It does not appear that he is actually overdosed on these medications as he has the majority of the pills left that were prescribed in early August. However with height to the for restarting medications until his current anticholinergic toxicity has resolved. (6) Depression with anxiety: Code(s): F41.8 - Other specified anxiety disorders Status: Chronic Assessment and Plan: Please see above plan. (7) Hand erythema: Code(s): L53.9 - Erythematous condition, unspecified Status: Acute Assessment and Plan: The patient has left thumb and palmar erythema and edema. I suspect this is due to compression from when he was unresponsive and altered. The patient's white count has improved significantly without antibiotic therapy to only IV fluid hydration. Most the leukocytosis appears to be due to hemoconcentration. The patient has had a mildly elevated temperature but again the likely due to anticholinergic toxicity. MRI of Left hand obtained showing Extensive increased fluid signal throughout much of the musculature of the left hand consistent with nonspecific myositis. Given the clinical history and laboratory findings would favor rhabdomyolysis. Continue with Supportive management (8) Acute kidney injury: Code(s): N17.9 - Acute kidney failure, unspecified Status: Acute Assessment and Plan: Due to rhabdomyolysis and urinary retention. Continue IV fluids at 75 cc/hr Cr has been stable at 0.6. Continue monitoring (9) Polyuria: Code(s): R35.89 - Other polyuria Status: Acute Assessment and Plan: Could be postobstructive diuresis versus solute diuresis. Urine osmolality ordered and is pending Continue IV fluids to prevent dehydration Anticipate slow improvement Will continue to monitor Urine osmolalit
[2021-09-28 18:57] LABS: Add Urine Microscopic? YES; Appearance Urine Cloudy (Clear); Bacteria Urine Trace /hpf; Bilirubin Urine Negative (Negative); Blood Urine 1+ (Negative); Color Urine Straw (Yellow); Glucose Urine UA Negative (Negative); Ketones Urine Negative (Negative); Leukocyte Esterase Ur 2+ LEU/UL (Negative); Nitrate Urine Negative (Negative); Protein Urine Negative (Negative); Specific Grav Ur 1.006 (1.001-1.035); Squamous Epithelial Cell Urine Rare /hpf (Few); Urobilinogen Urine Negative mg/dL (<2.0); WBC Urine 21-30 /hpf
[2021-09-28] MEDS: LORazepam INJ (*CRX) 2 MG/ML VIAL 0.5 MG IV PUSH (20:52)
[2021-09-28 21:50] VITALS: BP 113/55; PULSE 95; RESP 18; TEMP 36.8; O2SAT 100
[2021-09-29] MEDS: LACTATED RINGERS 1,000 ML 75 ML IV CONT (01:43)
[2021-09-29 04:57] VITALS: BP 121/58; PULSE 100; RESP 18; TEMP 36.7; O2SAT 100
[2021-09-29 06:15] LABS: Alanine Aminotransferase 65 U/L (4-50); Albumin Level 3.9 g/dL (3.5-5.1); Alkaline Phosphatase 64 U/L (38-126); Anion Gap 7 mmol/L (8-16); Aspartate Amino Transferase 63 U/L (17-59); Bilirubin,Total 0.5 mg/dL (0.2-1.3); Blood Urea Nitrogen 9 mg/dL (9-20); Calcium 8.7 mg/dL (8.4-10.2); Carbon Dioxide 27 mmol/L (22-30); Chloride 104 mmol/L (98-107); Creatine Kinase 1578 U/L (55-170); Estimated CRCL calculation 161 ml/min; Estimated Glomerular Filt Rate > 60; Glucose 100 mg/dL (65-110); Potassium 3.6 mmol/L (3.4-5.0); Sodium 138 mmol/L (137-145)
[2021-09-29 06:54] LABS: Osmolality, Urine 698 mOsm/kg (50-1200)
[2021-09-29 06:54] LABS: Osmolality, Urine 145 mOsm/kg (50-1200)
[2021-09-29] MEDS: ENOXAPARIN 40 MG/0.4 ML SYRINGE SUB-Q (09:12)
[2021-09-29] MEDS: LORazepam INJ (*CRX) 2 MG/ML VIAL 0.5 MG IV PUSH ×3 (09:23→22:43)
--- NOTE | 2021-09-29 10:28 | PM.IMPN ---
Progress Note: A&P Assessment and Plan (1) Poisoning by anticholinergic drug: Code(s): T44.3X1A - Poisoning by other parasympatholytics [anticholinergics and antimuscarinics] and spasmolytics, accidental (unintentional), initial encounter Status: Acute Assessment and Plan: Symptoms improved after aggressive IV fluid hydration and Ativan administration. Continue aggressive IV fluid hydration for rhabdomyolysis, and was decreased to 75 cc an hour for last few days. Continue monitoring symptoms. The patient sees a psychiatrist locally and has been having meetings via zoom. The patient's mother is going to talk to the psychiatrist about outpatient options for him to attend to seek further help. I a.m. working on decreasing his benzodiazepine use here in the hospital since he is receiving Ativan 1 mg IV every 6 hours as needed for anxiety, he is having this about 3 times per day. I will decrease it to 0.5 mg every 6 hours. He is doing well with the lower dose without any side effects. Continue monitoring. (2) Secondary rhabdomyolysis: Code(s): M62.82 - Rhabdomyolysis Status: Acute Assessment and Plan: Rhabdomyolysis secondary to prolonged immobility/down time and or result of anticholinergic toxicity. Patient received at least 6 L of IV fluids in the ER resolution of anion gap and significant been improvement in serum bicarb. Will discontinue Cao catheter at this time. CK level as at 1500. Will recheck in the morning. We want Ck to be less than 1000 prior to discharge. (3) Metabolic acidosis: Code(s): E87.2 - Acidosis Status: Acute Assessment and Plan: Please see above plan. This has resolved now (4) Urine retention: Code(s): R33.9 - Retention of urine, unspecified Status: Acute Assessment and Plan: Removed cao. Urinating well without Cao. (5) Schizophrenia: Qualifiers: Schizophrenia type: unspecified Qualified Code(s): F20.9 - Schizophrenia, unspecified Code(s): F20.9 - Schizophrenia, unspecified Status: Chronic Assessment and Plan: The patient's psychiatric medications are on hold. It does not appear that he is actually overdosed on these medications as he has the majority of the pills left that were prescribed in early August. However with height to the for restarting medications until his current anticholinergic toxicity has resolved. (6) Depression with anxiety: Code(s): F41.8 - Other specified anxiety disorders Status: Chronic Assessment and Plan: Please see above plan. (7) Hand erythema: Code(s): L53.9 - Erythematous condition, unspecified Status: Acute Assessment and Plan: The patient has left thumb and palmar erythema and edema. I suspect this is due to compression from when he was unresponsive and altered. The patient's white count has improved significantly without antibiotic therapy to only IV fluid hydration. Most the leukocytosis appears to be due to hemoconcentration. The patient has had a mildly elevated temperature but again the likely due to anticholinergic toxicity. MRI of Left hand obtained showing Extensive increased fluid signal throughout much of the musculature of the left hand consistent with nonspecific myositis. Given the clinical history and laboratory findings would favor rhabdomyolysis. No erythema or pain, just edema. Continue with Supportive management (8) Acute kidney injury: Code(s): N17.9 - Acute kidney failure, unspecified Status: Acute Assessment and Plan: Due to rhabdomyolysis and urinary retention. Continue IV fluids at 75 cc/hr Cr has been stable at 0.6. Continue monitoring (9) Polyuria: Code(s): R35.89 - Other polyuria Status: Acute Assessment and Plan: Could be postobstructive diuresis versus solute diuresis. Urine osm
[2021-09-29 14:43] VITALS: BP 119/62; PULSE 85; RESP 16; TEMP 36; O2SAT 98
[2021-09-29 19:41] VITALS: BP 117/58; PULSE 94; RESP 16; TEMP 36.4; O2SAT 100
[2021-09-30] MEDS: LACTATED RINGERS 1,000 ML 75 ML IV CONT (00:02)
[2021-09-30 05:13] VITALS: BP 108/61; PULSE 74; RESP 16; TEMP 36.6; O2SAT 99
[2021-09-30 05:52] LABS: Alanine Aminotransferase 61 U/L (4-50); Alkaline Phosphatase 60 U/L (38-126); Anion Gap 9 mmol/L (8-16); Aspartate Amino Transferase 45 U/L (17-59); Bilirubin,Total 0.5 mg/dL (0.2-1.3); Blood Urea Nitrogen 9 mg/dL (9-20); Calcium 8.6 mg/dL (8.4-10.2); Carbon Dioxide 25 mmol/L (22-30); Chloride 103 mmol/L (98-107); Creatine Kinase 959 U/L (55-170); Estimated CRCL calculation 140 ml/min; Estimated Glomerular Filt Rate > 60; Glucose 97 mg/dL (65-110); Magnesium 1.9 mg/dL (1.6-2.3); Potassium 3.7 mmol/L (3.4-5.0); Sodium 137 mmol/L (137-145)
[2021-09-30] MEDS: ENOXAPARIN 40 MG/0.4 ML SYRINGE SUB-Q (08:09)
[2021-09-30] MEDS: LORazepam INJ (*CRX) 2 MG/ML VIAL 0.5 MG IV PUSH (08:11)
--- NOTE | 2021-09-30 13:51 | PM.IMPN ---
Progress Note: A&P Assessment and Plan (1) Poisoning by anticholinergic drug: Code(s): T44.3X1A - Poisoning by other parasympatholytics [anticholinergics and antimuscarinics] and spasmolytics, accidental (unintentional), initial encounter Status: Acute Assessment and Plan: Concerns of second admission in 1 month for possible overdose. Patient has been purchasing synthetic Benzo's over the internet since 2017 and told me he was withdrawing from not having his Benzos which brought him into the ER but Urinalysis on arrival was positive for Benzos and Cannabinoids. Mother very concerned about this happening for the second time in 1 month and concerned about his safety with going home since she works long hours 6 days per week. Concerned for the patients mental health. He denies SI or HI, but I feel he will need inpatient psychiatric help to help with medication adjustments to help his severe anxiety before being able to safely go home where he could potentially overdose again. Crisis has been consulted. (2) Secondary rhabdomyolysis: Code(s): M62.82 - Rhabdomyolysis Status: Acute Assessment and Plan: Rhabdomyolysis secondary to prolonged immobility/down time and or result of anticholinergic toxicity. CK level as at was less than 1000. Discontinue IV fluids. Patient is urinating well without any issues. (3) Metabolic acidosis: Code(s): E87.2 - Acidosis Status: Acute Assessment and Plan: Please see above plan. This has resolved now (4) Urine retention: Code(s): R33.9 - Retention of urine, unspecified Status: Acute Assessment and Plan: Removed cao. Urinating well without Cao. (5) Schizophrenia: Qualifiers: Schizophrenia type: unspecified Qualified Code(s): F20.9 - Schizophrenia, unspecified Code(s): F20.9 - Schizophrenia, unspecified Status: Chronic Assessment and Plan: The patient's psychiatric medications are on hold. It does not appear that he is actually overdosed on these medications as he has the majority of the pills left that were prescribed in early August. However with height to the for restarting medications until his current anticholinergic toxicity has resolved. (6) Depression with anxiety: Code(s): F41.8 - Other specified anxiety disorders Status: Chronic Assessment and Plan: Please see above plan. (7) Hand erythema: Code(s): L53.9 - Erythematous condition, unspecified Status: Acute Assessment and Plan: The patient has left thumb and palmar erythema and edema. I suspect this is due to compression from when he was unresponsive and altered. The patient's white count has improved significantly without antibiotic therapy to only IV fluid hydration. Most the leukocytosis appears to be due to hemoconcentration. The patient has had a mildly elevated temperature but again the likely due to anticholinergic toxicity. MRI of Left hand obtained showing Extensive increased fluid signal throughout much of the musculature of the left hand consistent with nonspecific myositis. Given the clinical history and laboratory findings would favor rhabdomyolysis. No erythema or pain, just edema. Continue with Supportive management (8) Acute kidney injury: Code(s): N17.9 - Acute kidney failure, unspecified Status: Acute Assessment and Plan: Due to rhabdomyolysis and urinary retention. Cr has been stable at 0.6. IV fluids discontinued (9) Polyuria: Code(s): R35.89 - Other polyuria Status: Acute Assessment and Plan: Could be postobstructive diuresis versus solute diuresis. Urine osmolality slightly elevated at 306. Anticipate slow improvement Will continue to monitor Time Spent With Patient Time with patient: 25 - 35 minutes Subjective Date/time seen: 09/30/21 13:51 I
[2021-09-30 15:03] VITALS: BP 117/60; PULSE 80; RESP 18; TEMP 37.1; O2SAT 96
[2021-09-30 15:12] LABS: EDCOVIDSCREEN Negative (Negative)
[2021-09-30 22:00] VITALS: BP 131/61; PULSE 85; RESP 18; TEMP 36.9; O2SAT 99
[2021-10-01 06:00] VITALS: BP 113/63; PULSE 74; RESP 16; TEMP 36.9; O2SAT 100
--- NOTE | 2021-10-01 08:09 | PCNWS ---
Weekly nutritional screen. Patient is tolerating current diet with adequate intake. No nutritional needs at this time.
[2021-10-01] MEDS: ENOXAPARIN 40 MG/0.4 ML SYRINGE SUB-Q (08:20)
--- NOTE | 2021-10-01 12:28 | PM.IMPN ---
Progress Note: A&P Assessment and Plan (1) Poisoning by anticholinergic drug: Code(s): T44.3X1A - Poisoning by other parasympatholytics [anticholinergics and antimuscarinics] and spasmolytics, accidental (unintentional), initial encounter Status: Acute Assessment and Plan: Patient is a 25-year-old man with a history of severe anxiety, schizophrenia, depression, who presented to emergency room with altered mental status. The patient states he has been taking synthetic benzodiazepines which he purchases over the Internet, diclazepam 5mL to 10mL solution every 6 hours as needed (frequently takes three times per day) since 2016. The patient had been hospitalized at a psychiatric facility and was discharged 08/31/2021. He then presented to hospital 09/01/2021 due to suspected overdose of Wellbutrin and or Xanax. He then was brought to the ER on 09/23/2021 after being found at home by his mother when she returned home from work being face down in a pillow and altered. He states he had not been taking his benzodiazepine for about 2 days and he was having withdrawal symptoms which brought him into the hospital. Initial vitals showed elevated blood pressure 152/96, tachycardic at 133, increased respiratory rate 25, afebrile, normal oxygenation on room air. Initial labs showed leukocytosis at 20,700, elevated H&H and platelet count. Normal coag panel. ABG was normal. Elevated chloride. Creatinine 1.0, BUN 18. Elevated LFTs with an AST of 280, ALT 73. Elevated CK at 13,779. TSH normal. Urinalysis with positive nitrites, leukocyte esterase trace, wbc's 21-30. CT head showed was negative. He was admitted into the hospital with rhabdomyolysis, started on IV fluid hydration, monitoring withdrawal symptoms. Ordered IV Ativan p.r.n. every 6 hours. Concerns of second admission in 1 month for possible overdose. Patient has been purchasing synthetic Benzo's over the internet since 2016 and told me he was withdrawing from not having his Benzos which brought him into the ER but Urinalysis on arrival was positive for Benzos and Cannabinoids. Mother very concerned about this happening for the second time in 1 month and concerned about his safety with going home since she works long hours 6 days per week. Concerned for the patients mental health. He denies SI or HI, but I feel he will need inpatient psychiatric help to help with medication adjustments to help his severe anxiety before being able to safely go home where he could potentially overdose again. Crisis was consulted and he meets criteria for involuntary psych for further medication adjustments for his severe anxiety, concerns for further overdose with last one 1 month ago. We are waiting for psych facility placement. He is stable and medically cleared for psych admission and transport at this time. (2) Secondary rhabdomyolysis: Code(s): M62.82 - Rhabdomyolysis Status: Acute Assessment and Plan: Rhabdomyolysis secondary to prolonged immobility/down time and or result of anticholinergic toxicity. CK level as at was less than 1000. Discontinue IV fluids. Patient is urinating well without any issues. (3) Metabolic acidosis: Code(s): E87.2 - Acidosis Status: Acute Assessment and Plan: Please see above plan. This has resolved now (4) Urine retention: Code(s): R33.9 - Retention of urine, unspecified Status: Acute Assessment and Plan: Removed cao. Urinating well without Cao. (5) Schizophrenia: Qualifiers: Schizophrenia type: unspecified Qualified Code(s): F20.9 - Schizophrenia, unspecified Code(s): F20.9 - Schizophrenia, unspecified Status: Chronic Assessment and Plan: The patient's psychiatric medications are on hold. It does not appear that he is actually overdosed on these medications as he has the majority of the pills left that were prescribed in early August.
[2021-10-01 15:28] VITALS: BP 109/62; PULSE 79; RESP 18; TEMP 36.9; O2SAT 100
--- NOTE | 2021-10-01 17:24 | PCCCNOTE ---
Addendum entered by Trisha Thorne RN 10/01/21 19:10: Per assurance manager insurance, [facility] unit should arrange transportation, floor should call their air conditioning unit tester to get Lovisa approved. Called to at 1850 to follow up on request, no determination has been made. Provided Maya with phone number to [facility] and asked if they had an estimate of when a determination would be made. Up to floor provided bedside RN Maryjane with update- provided [facility] phone number and [facility] number and advised that air conditioning unit tester has to give approval for [facility]. Original Note: Phone received from Estrella at crisis stating that patient has been accepted at [facility] and needs transportation arranged and she does not want the patient to lose placement. Address [address] [place] [address]. They area ready for the patient just need transportation. States that bedside RN does not coordinate this transportation. If unable to get transportation, advised to call back to Crisis so different placement can be found. asked if there are certain parameters as it is a [address] Estrella did not have any specific parameters. Advised that urgent care would begin to call for transportation. Closed phone call, Incoming call from Breana bedside RN and Mobility Scooter Repairer advised had just spoken w/ Estrella and work on transport. Called to [facility], intake took details and states will have to put out request and then call auto club safety program coordinator back. Contact details provided awaiting return call.
[2021-10-01 20:38] VITALS: BP 116/55; PULSE 73; RESP 18; TEMP 37; O2SAT 100
--- NOTE | 2021-10-01 23:24 | PC.NURSE ---
TALKED WITH [facility] ABOUT TRANSFER STATES THEY HAVE AUTHORIZATION BUT TRYING TO FIND A CREW TO TRANSPORT 10/02/21, IF NOT CAN TRANSFER ON 10/03/21. CALLED [facility] STATES CAN HOLD BED TILL 10/02/21, BUT NOT SURE CAN HOLD BED UNTIL 10/03/21.
--- NOTE | 2021-10-02 04:12 | PC.NURSE ---
[facility] CALLED AND STATES THEY WILL BE ABLE TO TRANSPORT PT AT 3:00 THIS [place]. CALLED [facility] SPOKE TO SALINA TO LET THEM KNOW TIME PT WILL BE TRANSFERRED
--- NOTE | 2021-10-02 04:58 | PC.NURSE ---
SPOKE WITH CHIP AT [facility] ABOUT 3:00 PICKUP TODAY
[2021-10-02 05:11] VITALS: BP 118/66; PULSE 70; RESP 17; TEMP 36.7; O2SAT 100
[2021-10-02] MEDS: ENOXAPARIN 40 MG/0.4 ML SYRINGE SUB-Q (08:04)
--- NOTE | 2021-10-02 11:30 | PM.TDS ---
Transfer Discharge Sum: Prov Provider Date of admission: 09/24/21 01:03 Primary care physician: PHYSICIAN NOT ON STAFF Admitting clinician: Monica Barlow DO DS: Admitting Diagnosis Discharge Date 10/02/21 Admitting Diagnosis Overdose DS: Discharge Diagnosis Discharge Diagnosis (1) Poisoning by anticholinergic drug: Code(s): T44.3X1A - Poisoning by other parasympatholytics [anticholinergics and antimuscarinics] and spasmolytics, accidental (unintentional), initial encounter Status: Acute Assessment and Plan: Patient is a 25-year-old man with a history of severe anxiety, schizophrenia, depression, who presented to emergency room with altered mental status. The patient states he has been taking synthetic benzodiazepines which he purchases over the Internet, diclazepam 5mL to 10mL solution every 6 hours as needed (frequently takes three times per day) since 2016. The patient had been hospitalized at a psychiatric facility and was discharged 08/31/2021. He then presented to hospital 09/01/2021 due to suspected overdose of Wellbutrin and or Xanax. He then was brought to the ER on 09/23/2021 after being found at home by his mother when she returned home from work being face down in a pillow and altered. He states he had not been taking his benzodiazepine for about 2 days and he was having withdrawal symptoms which brought him into the hospital. Initial vitals showed elevated blood pressure 152/96, tachycardic at 133, increased respiratory rate 25, afebrile, normal oxygenation on room air. Initial labs showed leukocytosis at 20,700, elevated H&H and platelet count. Normal coag panel. ABG was normal. Elevated chloride. Creatinine 1.0, BUN 18. Elevated LFTs with an AST of 280, ALT 73. Elevated CK at 13,779. TSH normal. Urinalysis with positive nitrites, leukocyte esterase trace, wbc's 21-30. CT head showed was negative. He was admitted into the hospital with rhabdomyolysis, started on IV fluid hydration, monitoring withdrawal symptoms. Ordered IV Ativan p.r.n. every 6 hours. Concerns of second admission in 1 month for possible overdose. Patient has been purchasing synthetic Benzo's over the internet since 2016 and told me he was withdrawing from not having his Benzos which brought him into the ER but Urinalysis on arrival was positive for Benzos and Cannabinoids. Mother very concerned about this happening for the second time in 1 month and concerned about his safety with going home since she works long hours 6 days per week. Concerned for the patients mental health. He denies SI or HI, but I feel he will need inpatient psychiatric help to help with medication adjustments to help his severe anxiety before being able to safely go home where he could potentially overdose again. Crisis was consulted and he meets criteria for involuntary psych for further medication adjustments for his severe anxiety, concerns for further overdose with last one 1 month ago. We are waiting for psych facility placement. He is stable and medically cleared for psych admission and transport at this time. He was accepted to an inpatient psych facility in [place] and will be discharging today at 3pm for transfer. The patient understands and agrees with the plan. All questions answered. (2) Secondary rhabdomyolysis: Code(s): M62.82 - Rhabdomyolysis Status: Acute Assessment and Plan: Rhabdomyolysis secondary to prolonged immobility/down time and or result of anticholinergic toxicity. CK level as at was less than 1000. Discontinue IV fluids. Patient is urinating well without any issues. (3) Metabolic acidosis: Code(s): E87.2 - Acidosis Status: Acute Assessment and Plan: Please see above plan. This has resolved now (4) Urine retention: Code(s): R33.9 - Retention of urine, unspecified Status: Acute Assessment and Plan: Removed cao. Urinating well without Fole
[2021-10-02 14:43] VITALS: BP 119/62; PULSE 84; RESP 16; TEMP 36.5; O2SAT 100
== END 2021-10-02 16:55 | DRG 812 ==
LOC: ANHED 09-24 01:02 → ANHICU 09-24 10:02 → ANHIMU 09-24 16:14 → ANH3MED 09-28 07:12 → ANHICU 10-05 12:57 → ANHIMU 10-05 12:57
PROVIDERS: Internal Medicine; Admitting Provider Internal Medicine; Emergency Provider Emergency Medicine; Visit Provider Physician Assistant
DX: T44.3X1A Poisoning by other parasympatholytics [anticholinergics and antimuscarinics] and spasmolytics, accidental (unintentional), initial encounter (principal); N17.9 Acute kidney failure, unspecified; Z28.21 Immunization not carried out because of patient refusal; Z20.822 Contact with and (suspected) exposure to COVID-19; M62.82 Rhabdomyolysis; E87.2 Acidosis; R33.9 Retention of urine, unspecified; F20.9 Schizophrenia, unspecified; F41.8 Other specified anxiety disorders; L53.9 Erythematous condition, unspecified; R35.89 Other polyuria; Z79.899 Other long term (current) drug therapy; N39.0 Urinary tract infection, site not specified
CPT/HCPCS: 36415; 36600; 51701; 70450; 73218; 80048; 80053; 80164; 80307; 81001; 81050; 82550; 82570; 82805; 82948; 83735; 83930; 83935; 84100; 84133; 84156; 84300; 84443; 84450; 84460; 84540; 85025; 85027; 85610; 85730; 87077; 87086; 87088; 87186; 87426; 93005; 96361; 96374; 99285; C9803; J1650; J1956; J2060; J3360; J7030; J7120

== ENCOUNTER 2022-10-13 22:39 | Observation (INO) | payer OTHER, SELFPAY ==
--- NOTE | ~2022-10-13 | XR_ITS ---
EXAMINATION: XR chest 1V portable DATE: 10/14/2022 00:53 INDICATION: Altered mental status TECHNIQUE: frontal view of the chest was obtained. COMPARISON: Chest radiograph dated 09/01/2021 FINDINGS: Patient is rotated towards right. No airspace opacities, pulmonary edema, pleural effusion or pneumot horax. Cardiomediastinal silhouette is normal. IMPRESSION: 1. No acute cardiopulmonary disease. Reviewed, dictated and finalized at location A. [employer]NAL CARE SERVICE PROVIDER
--- NOTE | ~2022-10-13 | CT_ITS ---
EXAMINATION: CT brain wo con DATE: 10/14/2022 05:10 INDICATION: Altered mental state. Ethanol intoxication. TECHNIQUE: Computed tomography (CT) of the head was performed without intravenous contrast. The mA wa s adjusted according to patient size. Iterative reconstruction technique was employed. Exam dose: 60 5.33 mGy-cm total exam DLP. COMPARISON: 09/2021 CT brain FINDINGS: No intracranial mass lesion or hemorrhage or cerebrovascular accident. No midline shift or mass effects. Normal ventricular size. No subdural or epidural hematoma. No fracture or bone destruction of the cranial vault. Included paranasal sinuses and mastoid air cell s are unremarkable. IMPRESSION: No significant abnormality Reviewed, dictated and finalized at [facility]. Reviewed, dictated and finalized at location [facility]. [employer] WORK[employer]ODUCTION IMPRESSION: No significant abnormality
[2022-10-13 22:49] VITALS: BP 122/69; PULSE 126; RESP 19; TEMP 36.6; O2SAT 97
[2022-10-13] MEDS: SODIUM CHLORIDE 0.9% IV 1,000 ML 999 ML IV CONT (22:54)
--- NOTE | 2022-10-13 23:02 | ECG_ITS ---
Measurements Intervals [place] Rate: 123 P: 76 ND: 151 QRS: 80 QRSD: 101 T: 53 QT: 333 QTc: 478 Interpretive Statements SINUS TACHYCARDIA BASELINE ARTIFACT- I, II, AVR, AVL, V1-V2 ABNORMAL ECG COMPARED TO ECG 09/24/2021 08:59:11 SINUS TACHYCARDIA NOW PRESENT Electronically Signed On 10-14-2022 9:40:11 SUPERVISOR W[employer] by Jet Tran D.O.
[2022-10-13 23:37] VITALS: PULSE 122; RESP 18; O2SAT 100
--- NOTE | 2022-10-13 23:38 | ED.GENADULT ---
HPI - General Adult General Chief complaint: Alcohol Stated complaint: ETOH, AGGRESSIVE Time Seen by Provider: 10/13/22 22:42 Source: RN notes reviewed History of Present Illness HPI narrative: Patient presents emergency department from home via EMS for alcohol intoxication. History is per EMS is history is limited for the patient as he is unable to give full history Per EMS the police were called out to the patient's house for an altercation the patient had been found to be drinking dottie per the mother and to become agitated with the mother head at that time the police had responded anemia test was called the patient was noted to be altered and was brought to the emergency department for further evaluation patient is unable to give me any further history at this time is able to tell me his name but no further history Related Data Home Medications Medication Instructions Recorded Confirmed benztropine 1 mg tablet 1 mg PO BID 09/01/21 09/24/21 bupropion HCl 150 mg 24 hr tablet, 150 mg PO QAM 09/01/21 09/24/21 extended release (Wellbutrin XL) buspirone 15 mg tablet 15 mg PO BID 09/01/21 09/24/21 divalproex 250 mg tablet,delayed 250 mg PO Q12H 09/01/21 09/24/21 release (Depakote) haloperidol 5 mg tablet 5 mg PO BID 09/01/21 09/24/21 propranolol 10 mg tablet 10 mg PO TID 09/01/21 09/24/21 Allergies Allergy/AdvReac Type Severity Reaction Status Date / Time No Known Allergies Allergy Mild Verified 09/24/21 02:58 Review of Systems Review of Systems: Gen.: Denies fevers or chills Respiratory: Denies shortness of breath CV: Denies chest pain GI: Denies abdominal pain nausea, emesis Neuro: Denies headache Review of systems is limited secondary to altered mental status only able to answer few questions [facility] Past Medical History Medical History Depression with anxiety Schizophrenia Surgical History Surgical History (Updated 09/24/21 @ 05:23 by Monica Barlow DO) No significant past surgical history Family History Family History Other Unknown family medical history Social History Social History Social History: He lives with his mother and has been unemployed for at least 1 year. Code status full code. Smoking status: Never smoker Second hand tobacco smoke exposure: No Alcohol intake: current Alcohol use details: Occasional alcohol use in moderation. Substance use: current Substance use type: marijuana Spiritual care concerns: No Exam Narrative: APPEARANCE: Seen in bed with eyes open will track with eyes respond minimally to questioning EYES: Bilateral pupils are dilated and reactive HEENT: Normocephalic, atraumatic, oral mucosa dry RESPIRATORY: No respiratory distress Clear to auscultation bilaterally with no rhonchi wheezing or rales. CARDIOVASCULAR: Tachycardic and regular without murmurs rubs or gallops. ABDOMINAL: Soft, nontender, nondistended, no rebound or guarding MUSCULOSKELETAl: Moves all extremities. No clubbing, cyanosis or edema. NEURO: Sitting in bed with eyes open will track with eyes will minimally answer to questions ANO x1 SKIN:: Warm, dry. No rashes lesions or abrasions PSYCHIATRIC: Normal affect/mood, Course Course Emergency Course: Patient repeatedly attempting to get up out of bed patient constantly redirected will give Ativan at this time Reviewed old records. Patient currently showing symptoms consistent with anticholinergic effect patient is presenting with the symptoms before has been noted to get medications offline patient denies any drug use at this time patient still continues to get out of bed was going to give Haldol but secondary to anticholinergic concerns will give additional Ativan Patient's mother arrives states that the patient was stumbling around the house she then found t
[2022-10-13 23:45] VITALS: BP 134/71; PULSE 118; RESP 17; O2SAT 100
[2022-10-13 23:46] VITALS: PULSE 117; RESP 17; O2SAT 100
[2022-10-14] VITALS (42 sets, daily range): BP systolic 112–131; BP diastolic 51–79; PULSE 86–143; RESP 14–29; TEMP 36.8–37.2; O2SAT 98–100; BMI 18.1
[2022-10-14 00:09] LABS: Basophils Percent Auto 0.2 % (0.2-1.2); Eosinophils Absolute Auto 0.2 K/mm3 (0-0.3); Eosinophils Percent Auto 1.6 % (0-4.4); Hematocrit 40.2 % (42.0-52.0); Hemoglobin 13.6 g/dL (14.0-18.0); Immature Granulocyte Absolute 0.05 K/mm3 (0.00-0.031); Immature Granulocyte Percent A 0.4 % (0-0.5); Lymphocytes Absolute Auto 0.66 K/mm3 (0.9-3.2); Lymphocytes Percent Auto 5.4 % (18.3-44.2); Mean Corpuscular HGB Conc 33.8 g/dl (32-36); Mean Corpuscular Hemoglobin 32.2 pg (26-34); Mean Platelet Volume 10.4 fl (7.4-10.4); Monocytes Absolute Auto 1.2 K/mm3 (0.1-0.6); Monocytes Percent Auto 9.9 % (2.6-8.5); Neutrophils Absolute Auto 10.1 K/mm3 (1.3-6.7); Neutrophils Percent Auto 82.5 % (45.5-73.1); Platelet Count Result 249 k/mm3 (150-375); Red Blood Count 4.23 M/mm3 (4.6-6.20); Red Cell Distribution Width 12.7 % (11.5-14.5); White Blood Count 12.2 K/mm3 (4.5-10.0)
[2022-10-14 00:20] LABS: Alanine Aminotransferase 25 U/L (6-50); Albumin Level 4.4 g/dL (3.5-5.1); Alkaline Phosphatase 68 U/L (38-126); Anion Gap 13 mmol/L (8-16); Aspartate Amino Transferase 21 U/L (17-59); Bilirubin,Total 0.4 mg/dL (0.2-1.3); Blood Urea Nitrogen 14 mg/dL (9-20); Calcium 8.1 mg/dL (8.4-10.2); Carbon Dioxide 22 mmol/L (22-30); Chloride 107 mmol/L (98-107); Creatine Kinase 128 U/L (55-170); Estimated Glomerular Filt Rate > 60; Glucose 75 mg/dL (65-110); Potassium 3.8 mmol/L (3.4-5.0); Sodium 142 mmol/L (137-145)
[2022-10-14 00:22] LABS: Ethanol 101 mg/dL (<10)
[2022-10-14 00:51] LABS: Thyroid Stimulating Hormone 0.592 uIU/mL (0.465-4.680)
--- NOTE | 2022-10-14 01:24 | PC.NURSE ---
patient refusing to give urine sample or have ct head completed however patient is alert to self and place but not date nd time
--- NOTE | 2022-10-14 02:46 | PC.NURSE ---
call made to patients mother she will come to er to talk with provider and patient
--- NOTE | 2022-10-14 03:11 | PC.NURSE ---
mother here at this time
[2022-10-14] MEDS: LORazepam INJ (*CRX) 2 MG/ML VIAL 1 MG IV PUSH ×3 (03:28→13:09)
--- NOTE | 2022-10-14 03:31 | PC.NURSE ---
mom concern that patient is on something: states he his high or intoxicated and i cant take him home like this.
--- NOTE | 2022-10-14 04:08 | PC.NURSE ---
patient continues to ask why he is here denies suicidal or homicidal ideations states he did not take any drugs however has slow speech pattern and insists it is decemeber
[2022-10-14 04:43] LABS: Amphetamine Screen Urine Negative (Negative); Barbiturate Screen Urine Negative (Negative); Benzodiazepines Screen Urine Positive (Negative); Cannabinoid Screen Urine Positive (Negative); Cocaine Screen Urine Negative (Negative); Methadone Screen Urine Negative (Negative); Opiate Screen Urine Negative (Negative); Phencyclidine Screen Urine Positive (Negative)
[2022-10-14 05:05] LABS: Appearance Urine Clear (Clear); Bilirubin Urine 1+ (Negative); Blood Urine Negative (Negative); Color Urine Yellow (Yellow); Glucose Urine UA Negative (Negative); Ketones Urine Trace mg/dL (Negative); Leukocyte Esterase Ur Negative LEU/UL (Negative); Nitrate Urine Negative (Negative); Protein Urine 1+ mg/dL (Negative); Specific Grav Ur >= 1.030 (1.001-1.035); Urobilinogen Urine 0.2 mg/dL (<2.0); pH Urine 5.5 (5.0-9.0)
[2022-10-14 05:12] LABS: Mucus Urine Heavy /lpf; RBC Urine 0-2 /hpf (0-2)
[2022-10-14 05:17] LABS: Add Urine Microscopic? YES
[2022-10-14] MEDS: SODIUM CHLORIDE 0.9% IV 1,000 ML 999 ML IV CONT (06:13)
--- NOTE | 2022-10-14 07:54 | PM.IMHP ---
H&P: HPI History of Present Illness Date/Time: 10/14/22 07:54 Chief Complaint: Alcohol intoxication Narrative: 26-year-old male with past medical history of schizophrenia, depression and anxiety who presented to the ER with reports from EMS that he was intoxicated and becoming aggressive with family. The family arrived after staff contacted them again and reported that the patient was stumbling around the house. She found the patient to be drinking from what appeared to be a brand new bottle of dottie. She tried to get the bottle from the patient he became agitated. Mother was not sure if the patient was doing any other drugs but had been talking about experimenting with peyote. The patient adamantly down eyes actually using alcohol to me but his alcohol level on arrival to the ER was greater than 100. His urine drug screen was also positive for PCP, benzodiazepines and cannabinoids. He also denied using any illicit substances. The patient denied any symptoms of urinary retention but he had not been able to produce any urine in the ER and they bladder scanned him. He had a Linda catheter placed and had immediate return of greater than 1 L of urine. The patient states that he has not been depressed in the that he has been trying to keep a good positive outlook in life. Of course it took the patient multiple attempts to form this intense. He seemed to be having difficulty with word finding. He was initially able to tell the ER doctor only his name in no other history. At the time my evaluation he could tell me his name the fact that he was at [facility] [place] and could tell me the month and year. However he still cannot tell me any circumstances regarding him coming to the ER. He states he does not know why the ambulance was called because he was doing nothing wrong. Patient has a very flat affect and will stare straight ahead. He is only answering direct questions. Nursing staff had to take his clothes away as they were afraid that he was going to put his clothes on and pulled from the ER. The patient was constantly trying to get out of bed and needed constant redirection. He was given 2 doses of Ativan in the ER. Initially the ER with was going to given Haldol instead of a 2nd dose of Ativan but the patient was demonstrating anti, cholinergic symptoms. He has also had a history of buying synthetic and other drugs off line in the past and what medications he has consumed is unknown. The ER physician tells me that the patient had evidently started drinking the alcohol because his mom had a friend over. Review of Systems Review of Systems: Essentially unattainable due to the patient's altered mental status. He is a poor historian [facility] Past Medical History Medical History Depression with anxiety Schizophrenia Surgical History Surgical History (Updated 09/24/21 @ 05:23 by Monica Barlow DO) No significant past surgical history Family History Family History Other Unknown family medical history Social History Social History (Updated 10/14/22 @ 08:11 by Monica Barlow DO) Social History: He lives with his mother and has been unemployed for at least 2 years. Code status: Full code. Surrogate decision maker: Mother Smoking status: Never smoker Second hand tobacco smoke exposure: No Alcohol intake: current Alcohol use details: Occasional alcohol use in moderation. Substance use: current Substance use type: marijuana Spiritual care concerns: No Meds Home Medications and Allergies Home Medications Medication Instructions Recorded Confirmed Type benztropine 1 mg tablet 1 mg PO BID 09/01/21 09/24/21 History bupropion HCl 150 mg 24 hr tablet, 150 mg PO QAM 09/01/21 09/24/21 History extended release (Wellbutrin XL) buspirone 15 mg ta
[2022-10-14 07:59] LABS: Influenza A QL RT-PCR Negative (Negative); Influenza B QL RT-PCR Negative (Negative); SARS-CoV-2 RNA PCR Negative
[2022-10-14] MEDS: SODIUM CHLORIDE 0.9% IV 1,000 ML 150 ML IV CONT ×2 (10:24→22:33)
--- NOTE | 2022-10-14 10:56 | ADMGEN ---
This patient, Lokesh Wyatt, was admitted to IMU Room 205-02 at 0934. Patient/family oriented to hospital policies and general routines including ID bracelet, bed and alarms, visiting hours, pain management, procedures, bathroom and other care routines, personal items, smoking policy, room service/diet, and visiting hours. Information on how to activate the Rapid Response Team has been discussed. Patient/Family are encouraged to report perceived risks to care and to ask questions if they do not understand what they are told or what they should do.
--- NOTE | 2022-10-14 17:13 | PM.IMPN ---
Progress Note: A&P Assessment and Plan (1) Polysubstance overdose: Qualifiers: Encounter type: initial encounter Injury intent: undetermined intent Qualified Code(s): T50.904A - Poisoning by unspecified drugs, medicaments and biological substances, undetermined, initial encounter Code(s): T50.901A - Poisoning by unspecified drugs, medicaments and biological substances, accidental (unintentional), initial encounter Status: Acute Assessment and Plan: Further hx shows that patient took excessive amounts of Robitussin as well. UDS positive for PCP, marijuana and benzodiazepines. Patient is prescribed benzodiazepines. mother does not think patient is exposed to a source for PCP. This could be a false-positive test. Given the urine retention, concern for acute anticholinergic overdose. Continue supportive care. Hold home meds for tonight but resume in the morning if he is improved. (2) Poisoning by anticholinergic drug: Code(s): T44.3X1A - Poisoning by other parasympatholytics [anticholinergics and antimuscarinics] and spasmolytics, accidental (unintentional), initial encounter Status: Acute Assessment and Plan: Suspect patient overdosed on anticholinergic medications given the urinary retention, mental status, dilated pupils, anxiety, dysarthria, confusion, disorientation, dry MM and bizarre behavior. Continue IV fluid hydration. Linda catheter secured. Continue suppotive care. (3) Alcohol intoxication: Qualifiers: Complication of substance-induced condition: uncomplicated Qualified Code(s): F10.920 - Alcohol use, unspecified with intoxication, uncomplicated Code(s): F10.929 - Alcohol use, unspecified with intoxication, unspecified Status: Acute Assessment and Plan: Patient presumably was drinking from a bottle of dottie but alcohol level was 100. Will follow. (4) Acute urinary retention: Code(s): R33.8 - Other retention of urine Status: Acute Assessment and Plan: As above. (5) Altered mental status: Qualifiers: Altered mental status type: unspecified Qualified Code(s): R41.82 - Altered mental status, unspecified Code(s): R41.82 - Altered mental status, unspecified Status: Acute Assessment and Plan: Due to drug intoxication. CT brain normal. CXR clear. Follow (6) Schizophrenia: Qualifiers: Schizophrenia type: unspecified Qualified Code(s): F20.9 - Schizophrenia, unspecified Code(s): F20.9 - Schizophrenia, unspecified Status: Chronic Assessment and Plan: Hold home meds until mental status improves (7) Depression with anxiety: Code(s): F41.8 - Other specified anxiety disorders Status: Chronic Assessment and Plan: As above Subjective Date/time seen: 10/14/22 17:13 Interval history: 26yo male with schizophrenia, depression and anxiety here for intoxication, becoming aggressive with family and altered mental status. Patient is awake, mildly obtunded and confused so hx is unreliable. He refuses to answer some questions at times. Review of Systems Review of Systems: ROS unobtainable: Yes unobtainable due to mental status Exam Narrative: AF 98.9 130/79 110 16 100% ra Gen - thin male in NARD Chest - CTA bilaterally, nml RR CV - RRR S1/S2; Tele showing occasional sinus tachycardia. Abd - Soft, NT/ND, Positive BS - Linda secured draining clear yellow urine Ext - No pedal edema Neuro - awake, mildly obtunded. slow to respond. confused. Skin - Warm and dry Objective Data Vital Signs Vital Signs: Vital Signs - 24 hr 10/13/22 22:49 10/13/22 23:37 10/13/22 23:45 Temperature 97.9 F Pulse Rate 126 H 122 H 118 H Respiratory Rate 19 18 17 Blood Pressure 122/69 134/71 Pulse Oximetry 97 100 100 Oxygen Delivery Room Air 10/13/22 23:46 10/14/22 00:00 10/14/22 00:01 Temperature Pulse Rate 1
[2022-10-14] MEDS: LORazepam INJ (*CRX) 2 MG/ML VIAL 0.5 MG IV PUSH (22:33)
[2022-10-15] VITALS (12 sets, daily range): BP systolic 104–129; BP diastolic 53–78; PULSE 58–104; RESP 16–20; TEMP 36.3–36.8; O2SAT 97–100
[2022-10-15 04:40] LABS: Basophils Percent Auto 0.3 % (0.2-1.2); Eosinophils Absolute Auto 0.3 K/mm3 (0-0.3); Eosinophils Percent Auto 4.5 % (0-4.4); Hematocrit 34.3 % (42.0-52.0); Hemoglobin 11.4 g/dL (14.0-18.0); Immature Granulocyte Absolute 0.01 K/mm3 (0.00-0.031); Immature Granulocyte Percent A 0.2 % (0-0.5); Lymphocytes Absolute Auto 1.29 K/mm3 (0.9-3.2); Lymphocytes Percent Auto 22.1 % (18.3-44.2); Mean Corpuscular HGB Conc 33.2 g/dl (32-36); Mean Corpuscular Hemoglobin 32.7 pg (26-34); Mean Corpuscular Volume 98.3 fl (80-100); Mean Platelet Volume 11.6 fl (7.4-10.4); Monocytes Absolute Auto 1.1 K/mm3 (0.1-0.6); Neutrophils Absolute Auto 3.2 K/mm3 (1.3-6.7); Neutrophils Percent Auto 54.9 % (45.5-73.1); Platelet Count Result 201 k/mm3 (150-375); Red Blood Count 3.49 M/mm3 (4.6-6.20); Red Cell Distribution Width 12.7 % (11.5-14.5); White Blood Count 5.8 K/mm3 (4.5-10.0)
[2022-10-15] MEDS: LORazepam INJ (*CRX) 2 MG/ML VIAL 1 MG IV PUSH (04:57)
[2022-10-15] MEDS: SODIUM CHLORIDE 0.9% IV 1,000 ML 150 ML IV CONT (04:59)
[2022-10-15 05:23] LABS: Alanine Aminotransferase 26 U/L (6-50); Albumin Level 3.1 g/dL (3.5-5.1); Alkaline Phosphatase 55 U/L (38-126); Anion Gap 6 mmol/L (8-16); Aspartate Amino Transferase 28 U/L (17-59); Bilirubin,Total 0.7 mg/dL (0.2-1.3); Blood Urea Nitrogen 5 mg/dL (9-20); Calcium 7.9 mg/dL (8.4-10.2); Carbon Dioxide 25 mmol/L (22-30); Chloride 107 mmol/L (98-107); Estimated CRCL calculation 126 ml/min; Estimated Glomerular Filt Rate > 60; Glucose 86 mg/dL (65-110); Potassium 3.5 mmol/L (3.4-5.0); Sodium 138 mmol/L (137-145)
--- NOTE | 2022-10-15 12:01 | PM.IMPN ---
Progress Note: A&P Assessment and Plan (1) Polysubstance overdose: Qualifiers: Encounter type: initial encounter Injury intent: undetermined intent Qualified Code(s): T50.904A - Poisoning by unspecified drugs, medicaments and biological substances, undetermined, initial encounter Code(s): T50.901A - Poisoning by unspecified drugs, medicaments and biological substances, accidental (unintentional), initial encounter Status: Acute Assessment and Plan: Further hx shows that patient took excessive amounts of Robitussin as well. UDS positive for PCP, marijuana and benzodiazepines. Patient is prescribed benzodiazepines. Mother does not think patient is exposed to a source for PCP. This could be a false-positive test. Given the urine retention, concern for acute anticholinergic overdose. Continue supportive care. Resume some home meds. Remove Linda and monitor (2) Poisoning by anticholinergic drug: Code(s): T44.3X1A - Poisoning by other parasympatholytics [anticholinergics and antimuscarinics] and spasmolytics, accidental (unintentional), initial encounter Status: Acute Assessment and Plan: Suspect patient overdosed on anticholinergic medications given the urinary retention, mental status, dilated pupils, anxiety, dysarthria, confusion, disorientation, dry MM and bizarre behavior. Eating well so will stop IV fluids. Remove Linda and monitor for recurrent retention. (3) Alcohol intoxication: Qualifiers: Complication of substance-induced condition: uncomplicated Qualified Code(s): F10.920 - Alcohol use, unspecified with intoxication, uncomplicated Code(s): F10.929 - Alcohol use, unspecified with intoxication, unspecified Status: Acute Assessment and Plan: Patient presumably was drinking from a bottle of dottie but alcohol level was 100. Add thiamine. Will follow. (4) Acute urinary retention: Code(s): R33.8 - Other retention of urine Status: Acute Assessment and Plan: As above. (5) Altered mental status: Qualifiers: Altered mental status type: unspecified Qualified Code(s): R41.82 - Altered mental status, unspecified Code(s): R41.82 - Altered mental status, unspecified Status: Acute Assessment and Plan: Due to drug intoxication. CT brain normal. CXR clear. Mental status improving. Follow (6) Schizophrenia: Qualifiers: Schizophrenia type: unspecified Qualified Code(s): F20.9 - Schizophrenia, unspecified Code(s): F20.9 - Schizophrenia, unspecified Status: Chronic Assessment and Plan: Home meds were held until mental status improved. Review and resume some of his home meds today. (7) Depression with anxiety: Code(s): F41.8 - Other specified anxiety disorders Status: Chronic Assessment and Plan: As above Subjective Date/time seen: 10/15/22 12:01 Interval history: 26yo male with schizophrenia, depression and anxiety here for intoxication, becoming aggressive with family and altered mental status. Patient is more awake and alert. he slept okay. No CP or SOB. He is up walking to the BR and does not feel off balance. Exam Narrative: AF 98.3 112/62 86 16 100% ra Gen - thin male in NARD Chest - CTA bilaterally, nml RR CV - RRR S1/S2; Tele showing no significant dysrhythmias Abd - Soft, NT/ND, Positive BS - Linda secured draining clear yellow urine Ext - No pedal edema Neuro - awake and alert. stuttering speech at times (chronic per patient) Skin - Warm and dry Objective Data Vital Signs Vital Signs: Vital Signs - 24 hr 10/14/22 14:00 10/14/22 16:00 10/14/22 16:00 Temperature 98.9 F Pulse Rate 115 H 115 H 110 H Respiratory Rate 16 16 Blood Pressure 130/79 Pulse Oximetry 100 100 Oxygen Delivery Room Air 10/14/22 16:00 10/14/22 18:00 10/14/22 20:00 Temperature 98.3 F Pulse Rate 106 H 108 H 91
[2022-10-15] MEDS: GABAPENTIN 300 MG CAPSULE 600 MG PO ×2 (12:50→18:37)
[2022-10-15] MEDS: QUEtiapine FUMARATE 25 MG TABLET 50 MG PO ×2 (12:50→21:07)
[2022-10-15] MEDS: THIAMINE HCL 100 MG TABLET PO (12:50)
[2022-10-15] MEDS: VENLAFAXINE HCL XR 37.5 MG CAP PO (12:50)
[2022-10-15] MEDS: clonazePAM (*CRX) 0.5 MG TABLET 1 MG PO ×2 (12:50→21:07)
[2022-10-15] MEDS: FOLIC ACID 1 MG TABLET PO (12:51)
[2022-10-15] MEDS: LORazepam (*CRX) 0.5 MG TABLET PO (21:06)
[2022-10-16] VITALS (7 sets, daily range): BP systolic 119–150; BP diastolic 67–79; PULSE 79–134; RESP 14–24; TEMP 36.4–36.8; O2SAT 98–99
[2022-10-16] MEDS: GABAPENTIN 300 MG CAPSULE 600 MG PO ×2 (09:40→12:43)
[2022-10-16] MEDS: THIAMINE HCL 100 MG TABLET PO (09:41)
[2022-10-16] MEDS: clonazePAM (*CRX) 0.5 MG TABLET 1 MG PO (09:41)
[2022-10-16] MEDS: VENLAFAXINE HCL XR 37.5 MG CAP PO (09:41)
[2022-10-16] MEDS: FOLIC ACID 1 MG TABLET PO (09:42)
[2022-10-16] MEDS: QUEtiapine FUMARATE 25 MG TABLET 50 MG PO (09:42)
--- NOTE | 2022-10-16 12:07 | PM.DS ---
DS: Admitting Diagnosis Discharge Date 10/16/22 Admitting Diagnosis Altered mental status DS: Discharge Diagnosis Discharge Diagnosis (1) Polysubstance overdose: Qualifiers: Encounter type: initial encounter Injury intent: undetermined intent Qualified Code(s): T50.904A - Poisoning by unspecified drugs, medicaments and biological substances, undetermined, initial encounter Code(s): T50.901A - Poisoning by unspecified drugs, medicaments and biological substances, accidental (unintentional), initial encounter Status: Acute (2) Poisoning by anticholinergic drug: Code(s): T44.3X1A - Poisoning by other parasympatholytics [anticholinergics and antimuscarinics] and spasmolytics, accidental (unintentional), initial encounter Status: Acute (3) Alcohol intoxication: Qualifiers: Complication of substance-induced condition: uncomplicated Qualified Code(s): F10.920 - Alcohol use, unspecified with intoxication, uncomplicated Code(s): F10.929 - Alcohol use, unspecified with intoxication, unspecified Status: Acute (4) Acute urinary retention: Code(s): R33.8 - Other retention of urine Status: Acute (5) Altered mental status: Qualifiers: Altered mental status type: unspecified Qualified Code(s): R41.82 - Altered mental status, unspecified Code(s): R41.82 - Altered mental status, unspecified Status: Acute (6) Schizophrenia: Qualifiers: Schizophrenia type: unspecified Qualified Code(s): F20.9 - Schizophrenia, unspecified Code(s): F20.9 - Schizophrenia, unspecified Status: Chronic (7) Depression with anxiety: Code(s): F41.8 - Other specified anxiety disorders Status: Chronic DS: Summary Hospital Course Reason for hospitalization: 26yo male with schizophrenia, depression and anxiety here for intoxication, becoming aggressive with family and altered mental status. Please see H&P for details Hospital Course: Patient brought to the ED for altered mental status. CT brain normal. CXR clear. Due to drugand alcohol intoxication. Suspect patient overdosed on anticholinergic medications given the urinary retention, mental status, dilated pupils, anxiety, dysarthria, confusion, disorientation, dry MM and bizarre behavior.?UDS positive for PCP, marijuana and benzodiazepines. Patient is prescribed benzodiazepines. Mother does not think patient is exposed to a source for PCP but patient stated later that he took a 'synthetic' drug similar to PCP; this could also be a false-positive test.?Further hx shows that patient took excessive amounts of Robitussin. Urine retention on admission requiring a Linda. Symptoms improved. Able to remove Linda and patient voiding normally. Patient presumably was drinking from a bottle of dottie but alcohol level was 100. We added thiamine. When mental status improved, he admits to taking illegal drugs and drinking alcohol. We resumed a majority of his home medications. He denies suicidal or homicidal ideation. Patient overall did well able discharged home on 10/16/2022. He follow-up with his counselor tomorrow. Status at Discharge Cognitive/behavioral status at discharge: Stable Time Spent with Patient Time attestation: Total time spent providing and/or coordinating discharge services: 34 minutes Time spent: Greater than 30 minutes Exam Narrative: AF 97.6 150/68 86 20 99% ra Gen - thin male in NARD Chest - CTA bilaterally, nml RR CV - RRR S1/S2; Tele showing occasional sinus tachycardia Abd - Soft, NT/ND, Positive BS Ext - No pedal edema Neuro - awake and alert. stuttering speech at times (chronic per patient) Skin - Warm and dry Discharge Plan Discharge Attending physician on discharge: Magnus Mack Discharging Clinician: Magnus Mack Anticipated Discharge Date/Time: 10/16/22 12:20 Patient Disposition: Home, Self-Care Activity: as to
== END 2022-10-16 13:02 | disposition home or self-care (01) ==
LOC: ANHED 10-14 06:44 → ANHIMU 10-14 09:20
PROVIDERS: Admitting Provider Internal Medicine; Emergency Provider Emergency Medicine; Visit Provider Internal Medicine
DX: T50.901A Poisoning by unspecified drugs, medicaments and biological substances, accidental (unintentional), initial encounter (principal); T44.3X1A Poisoning by other parasympatholytics [anticholinergics and antimuscarinics] and spasmolytics, accidental (unintentional), initial encounter; F10.120 Alcohol abuse with intoxication, uncomplicated; R33.8 Other retention of urine; R41.82 Altered mental status, unspecified; F41.8 Other specified anxiety disorders; F20.9 Schizophrenia, unspecified; F12.90 Cannabis use, unspecified, uncomplicated; F19.90 Other psychoactive substance use, unspecified, uncomplicated; Z79.899 Other long term (current) drug therapy
CPT/HCPCS: 36415; 70450; 71045; 80053; 80307; 81001; 82550; 84443; 85025; 87636; 93005; 96360; 96361; 96374; 96376; 99285; A9270; G0378; G0379; J2060; J7030

== ENCOUNTER 2023-01-04 22:15 | Emergency (ER) | payer OTHER, SELFPAY ==
[2023-01-04] VITALS (16 sets, daily range): BP systolic 113–135; BP diastolic 58–101; PULSE 92–123; RESP 14–27; TEMP 37.2; O2SAT 88–100
--- NOTE | 2023-01-04 22:19 | ECG_ITS ---
Measurements Intervals [place] Rate: 86 P: 42 SD: 134 QRS: 77 QRSD: 91 T: 66 QT: 371 QTc: 445 Interpretive Statements SINUS RHYTHM COMPARED TO ECG 10/13/2022 23:37:18 SINUS RHYTHM NOW PRESENT Electronically Signed On 01-05-2023 14:52:20 PROTECTIVE SIGNAL INSTALLER by Dylan Ayala M.D.
--- NOTE | 2023-01-04 22:49 | ED.AMS ---
HPI - Altered Mental Status General Chief Complaint: Psychiatric Symptoms <Ankita Feng PA-C - Last Filed: 01/06/23 09:02> Stated Complaint: ams <Ankita Feng PA-C - Last Filed: 01/06/23 09:02> Time Seen by Provider: 01/04/23 22:19 <Ankita Feng PA-C - Last Filed: 01/06/23 09:02> Source: patient, family, EMS and old records reviewed <ROSALIA Hair Last Filed: 01/06/23 09:02> Mode of arrival: EMS <Ankita Feng PA-C - Last Filed: 01/06/23 09:02> Limitations: clinical condition <ROSALIA Hair Last Filed: 01/06/23 09:02> History of Present Illness HPI narrative: Patient is a 27-year-old male, with past medical history of schizophrenia and bipolar disorder, who presents to the ED via EMS with report of altered mental status. Per EMS report, patient mother called 911 tonight as she came home and found the patient to be altered. Patient will not provide any information for me currently. He is alert and oriented x4, but very slow to respond, slow movements, limiting what information he provides. He denies any suicidal or homicidal ideation at this time. He did tell EMS and the ED nurse that he has been taking a medication that he receives off the Internet for philosophy and to better his thinking. He apparently has this medication in his pocket, but refuses to show it to us or give it to us. Per patient's records, he has been hospitalized several times in the past for different sorts of overdoses, alcohol intoxication, rhabdomyolysis. Patient denying any acute complaints right now, but will not tell me why he is here. Per patient's med rec, he is prescribed Focalin, clonazepam, venlafaxine, gabapentin, quetiapine. ED nurse contacted patient's mother, Iva, who reported that the police were currently at their house. Patient's house had been under a drug watch and the police reportedly found PCP in his room today. They also found a synthetic stimulant, 4F-mph, and 3-40 PCP. Mother reported that she came home to find their house destroyed, patient talking slow and abnormal and his eyes were glassy, which is why she called for EMS. <Ankita Feng PA-C - Last Filed: 01/06/23 09:02> Related Data Home Medications: Home Medications Medication Instructions Recorded Confirmed clonazepam 1 mg tablet 1 mg PO BID 10/14/22 01/04/23 dexmethylphenidate 20 mg 20 mg PO DAILY 10/14/22 01/04/23 capsule,extended release [id number] (Focalin XR) gabapentin 600 mg tablet 600 mg PO TID 10/14/22 01/04/23 quetiapine 50 mg tablet 50 mg PO BID 10/14/22 01/04/23 venlafaxine 37.5 mg 37.5 mg PO DAILY 10/14/22 01/04/23 capsule,extended release 24 hr Focalin DAILY 01/04/23 <Ankita Feng PA-C - Last Filed: 01/06/23 09:02> Allergies/Adverse Reactions: Allergies Allergy/AdvReac Type Severity Reaction Status Date / Time No Known Allergies Allergy Mild Verified 09/24/21 02:58 <Ankita Feng PA-C - Last Filed: 01/06/23 09:02> Review of Systems Review of Systems: ROS unobtainable: Yes unobtainable due to medical condition <Ankita Feng PA-C - Last Filed: 01/06/23 09:02> [facility] Past Medical History Medical History: Medical History Depression with anxiety Schizophrenia <Ankita Feng PA-C - Last Filed: 01/06/23 09:02> Surgical History Surgical History: Surgical History No significant past surgical history <Ankita Feng PA-C - Last Filed: 01/06/23 09:02> Family History Family History: Family History Other Unknown family medical history <Ankita Feng PA-C - Last Filed: 01/06/23 09:02> Social History Social History: Social History (Reviewed 01/05/23 @ 05:00
--- NOTE | 2023-01-04 23:14 | PC.NURSE ---
After speaking to the pts mom this RN found that police found PCP in the patients room along with two other benzos in powder form. notified. Pt resting in bed at this time. Pt refusing to take medications out of his pockets and refusing IV or blood work.
[2023-01-04] MEDS: LORazepam INJ (*CRX) 2 MG/ML VIAL 1 MG IV PUSH (23:37)
[2023-01-04] MEDS: HALOPERIDOL LACTATE 5 MG/ML VIAL IM (23:37)
[2023-01-05] VITALS (51 sets, daily range): BP systolic 92–117; BP diastolic 53–76; PULSE 65–92; RESP 10–32; O2SAT 95–100
[2023-01-05 00:31] LABS: Basophils Percent Auto 0.3 % (0.2-1.2); Eosinophils Absolute Auto 0.4 K/mm3 (0-0.3); Eosinophils Percent Auto 4.6 % (0-4.4); Hemoglobin 13.7 g/dL (14.0-18.0); Immature Granulocyte Absolute 0.02 K/mm3 (0.00-0.031); Immature Granulocyte Percent A 0.2 % (0-0.5); Lymphocytes Absolute Auto 1.12 K/mm3 (0.9-3.2); Lymphocytes Percent Auto 12.9 % (18.3-44.2); Mean Corpuscular HGB Conc 33.4 g/dl (32-36); Mean Corpuscular Hemoglobin 32.9 pg (26-34); Mean Corpuscular Volume 98.3 fl (80-100); Mean Platelet Volume 9.6 fl (7.4-10.4); Monocytes Absolute Auto 1.2 K/mm3 (0.1-0.6); Monocytes Percent Auto 13.3 % (2.6-8.5); Neutrophils Percent Auto 68.7 % (45.5-73.1); Platelet Count Result 306 k/mm3 (150-375); Red Blood Count 4.17 M/mm3 (4.6-6.20); Red Cell Distribution Width 14.2 % (11.5-14.5); White Blood Count 8.7 K/mm3 (4.5-10.0)
[2023-01-05 00:55] LABS: Alanine Aminotransferase 43 U/L (6-50); Albumin Level 4.6 g/dL (3.5-5.1); Alkaline Phosphatase 72 U/L (38-126); Anion Gap 6 mmol/L (8-16); Aspartate Amino Transferase 36 U/L (17-59); Bilirubin,Total 0.5 mg/dL (0.2-1.3); Blood Urea Nitrogen 14 mg/dL (9-20); Calcium 8.7 mg/dL (8.4-10.2); Carbon Dioxide 27 mmol/L (22-30); Chloride 102 mmol/L (98-107); Estimated CRCL calculation 140 ml/min; Estimated Glomerular Filt Rate > 60; Glucose 131 mg/dL (65-110); Potassium 3.8 mmol/L (3.4-5.0); Sodium 135 mmol/L (137-145)
[2023-01-05 01:13] LABS: Appearance Urine Clear (Clear); Bilirubin Urine 1+ (Negative); Blood Urine Negative (Negative); Color Urine Yellow (Yellow); Glucose Urine UA Negative (Negative); Ketones Urine 2+ mg/dL (Negative); Leukocyte Esterase Ur Negative LEU/UL (Negative); Nitrate Urine Negative (Negative); Protein Urine Negative (Negative); Urobilinogen Urine 0.2 mg/dL (<2.0)
[2023-01-05 01:19] LABS: Mucus Urine Rare /lpf; RBC Urine 0-2 /hpf (0-2); WBC Urine 0-3 /hpf
[2023-01-05 01:24] LABS: Add Urine Microscopic? YES
[2023-01-05 01:24] LABS: Thyroid Stimulating Hormone 0.646 uIU/mL (0.465-4.680)
[2023-01-05 01:28] LABS: Acetaminophen < 10 ug/mL (10-30); Ethanol < 10 mg/dL (<10); Salicylate < 1.0 mg/dL (2-20)
[2023-01-05] MEDS: SODIUM CHLORIDE 0.9% IV 1,000 ML 999 ML IV CONT ×2 (01:30→02:21)
[2023-01-05 01:37] LABS: Creatine Kinase 441 U/L (55-170)
[2023-01-05 01:39] LABS: Amphetamine Screen Urine Negative (Negative); Barbiturate Screen Urine Negative (Negative); Benzodiazepines Screen Urine Positive (Negative); Cannabinoid Screen Urine Positive (Negative); Cocaine Screen Urine Negative (Negative); Methadone Screen Urine Negative (Negative); Opiate Screen Urine Negative (Negative); Phencyclidine Screen Urine Positive (Negative)
--- NOTE | 2023-01-05 10:23 | PC.NURSE ---
Pt ambulated to restroom w/out assist.
--- NOTE | 2023-01-05 10:25 | PC.NURSE ---
attempted to call mother in contact list (Iva) in order to come get pt at time of discharge per pts request, no answer at this time
--- NOTE | 2023-01-05 11:05 | PC.NURSE ---
Report received from Kathleen WHITE including history and physical and plan of care
--- NOTE | 2023-01-05 13:46 | PCCCNOTE ---
Addendum entered by Trisha Thorne RN 01/05/23 15:42: Correction Vocera received at noon to assist w/ dc planning. Original Note: Called to ER to assist with with dc planning for patient as his mom is not picking up the phone for transportation home. Met with patient in room 14. Met with patient, he has a stutter but is able to express himself in a logical way with the stutter. He states that he lives with his mom but would not disclose how long. He has tried to call his mom using the juan phone but she did not answer. academic support coordinator called but no answer and vm left requesting a call back as soon as possible for dc. There is a father on the chart and when asked patient he states that he does not have contact and does not want to talk about it. He denies that there is anyone else to call for transportation. Patient states he is his own medical decision maker and he is able to get around town by Uber, Lyft or Bus. He sees a psychiatrist monthly and a counselor through [facility]. His next counseling appt is tomorrow and he knows the importance of keeping his appt. He accepts resources for housing but declines resources for drugs and alcohol. Patient tries again to get a hold of mom on juan phone with no answer, patient leaves a message. Asked patient if this has happened before and he says no. Asked if he has any concerns about his mom not accepting him back home and he does not. Patient states that he has a grimes under the mat at home, and feels comfortable with a cab. He feels confident that the grimes will be there and asked if he had a back up plan if not and he states, I can take care of myself. Educated patient that if he has been living there for at least 2 days that she can not kick him out w/o proper eviction notice and he can call police is needed. Patient verbalizes understanding. Update given to Dr. Solomon. Patient will be provided a cab voucher as he does not have any money or phone with him. Patient confirms [address] [place] [address]. Cab voucher provided to bedside RN.
--- NOTE | 2023-01-05 14:00 | PC.NURSE ---
called cab for patient at this time per care coordination
--- NOTE | 2023-01-05 15:02 | PCCCNOTE ---
Received a phone call from patient's mom concerned about discharge. Advised that we had been trying to call her all day, and she states that she does not get good media executive at work. She states he usually speaks clearly and does not have a stutter. Advised that he had a stutter but was clear thought process. Patient's mother confirms that he is his own decision maker and that he has an appt tomorrow with the psychiatrist. This confirms what the patient had advised. She states that she is in the process of working on legal guardianship but it is not in effect yet. She does not think that there is a grimes under the mat but the back door maybe open because they are having work on the place. She plans to call the people that will be working on the house. Advised also that she can call the local police department for a wellness check while she is en route home.
== END 2023-01-05 14:34 | disposition home or self-care (01) ==
PROVIDERS: Emergency Provider Physician Assistant
DX: R41.82 Altered mental status, unspecified (principal); F19.10 Other psychoactive substance abuse, uncomplicated; F16.10 Hallucinogen abuse, uncomplicated; F41.9 Anxiety disorder, unspecified; F32.9 Major depressive disorder, single episode, unspecified
CPT/HCPCS: 36415; 80053; 80307; 81001; 82550; 84443; 85025; 93005; 96361; 96372; 96374; 99284; J1630; J2060; J7030

== ENCOUNTER 2023-01-07 08:36 | Emergency (ER) | payer OTHER, SELFPAY ==
[2023-01-07] VITALS (8 sets, daily range): BP systolic 120–125; BP diastolic 71–76; PULSE 75–93; RESP 14–18; TEMP 36.4–36.8; O2SAT 98–100
--- NOTE | ~2023-01-07 | CT_ITS ---
EXAMINATION: CT BRAIN W/O DATE: 01/07/2023 09:17 INDICATION: Altered mental status TECHNIQUE: Computed tomography (CT) of the head was performed without intravenous contrast. The dose- length product was 681.00 mGy-cm. Automated exposure control and iterative reconstruction technique w ere employed. COMPARISON: CT dated 10/14/2022 FINDINGS: Normal brain parenchymal volume for age. Normal ureña-white differentiation. No acute intrac ranial hemorrhage, infarction, mass or mass effect. No ventriculomegaly or midline shift. Midline sagittal images demonstrate a normal corpus callosum, c raniovertebral junction and sella turcica. Basilar cisterns are patent. Paranasal sinuses and mastoids are pneumatized. No depressed skull fractures. IMPRESSION: 1. No acute intracranial abnormality. Reviewed, dictated and finalized at location A. [employer]
--- NOTE | ~2023-01-07 | XR_ITS ---
EXAMINATION: XR chest 1V 01/07/2023 09:28 INDICATION: Altered mental status PROCEDURE: AP view of the chest COMPARISON: 10/14/2022 FINDINGS: The lungs are clear. The cardiomediastinal silhouette is within normal limits. There are no pleural effusions. There is no pneumothorax suspected. IMPRESSION: 1: NO ACUTE CARDIOPULMONARY DISEASE. Reviewed, dictated and finalized at location A. F MINISTER
[2023-01-07] MEDS: SODIUM CHLORIDE 0.9% IV 2,000 ML 999 ML IV CONT (09:43)
[2023-01-07 09:47] LABS: Basophils Percent Auto 0.6 % (0.2-1.2); Eosinophils Absolute Auto 0.2 K/mm3 (0-0.3); Eosinophils Percent Auto 4.4 % (0-4.4); Hematocrit 39.7 % (42.0-52.0); Hemoglobin 12.6 g/dL (14.0-18.0); Immature Granulocyte Absolute 0.01 K/mm3 (0.00-0.031); Immature Granulocyte Percent A 0.2 % (0-0.5); Mean Corpuscular HGB Conc 31.7 g/dl (32-36); Mean Corpuscular Hemoglobin 32.1 pg (26-34); Mean Corpuscular Volume 101.3 fl (80-100); Monocytes Absolute Auto 0.8 K/mm3 (0.1-0.6); Monocytes Percent Auto 15.2 % (2.6-8.5); Neutrophils Absolute Auto 3.2 K/mm3 (1.3-6.7); Neutrophils Percent Auto 60.6 % (45.5-73.1); Platelet Count Result 252 k/mm3 (150-375); Red Blood Count 3.92 M/mm3 (4.6-6.20); Red Cell Distribution Width 14.1 % (11.5-14.5); White Blood Count 5.3 K/mm3 (4.5-10.0)
[2023-01-07 09:54] LABS: Glucose Point of Care 67 mg/dl (65-105)
[2023-01-07 09:57] LABS: Acetaminophen < 10 ug/mL (10-30); Alanine Aminotransferase 51 U/L (6-50); Albumin Level 4.3 g/dL (3.5-5.1); Alkaline Phosphatase 56 U/L (38-126); Anion Gap 4 mmol/L (8-16); Aspartate Amino Transferase 37 U/L (17-59); Bilirubin,Total 0.6 mg/dL (0.2-1.3); Blood Urea Nitrogen 6 mg/dL (9-20); Calcium 8.4 mg/dL (8.4-10.2); Carbon Dioxide 31 mmol/L (22-30); Chloride 102 mmol/L (98-107); Estimated CRCL calculation 94 ml/min; Estimated Glomerular Filt Rate > 60; Glucose 77 mg/dL (65-110); Lactic Acid Reflex 0.9 mmol/L (0.7-2.0); Magnesium 2.1 mg/dL (1.6-2.3); Phosphorus 3.5 mg/dL (2.5-4.5); Potassium 3.2 mmol/L (3.4-5.0); Salicylate < 1.0 mg/dL (2-20); Sodium 137 mmol/L (137-145)
[2023-01-07 09:58] LABS: INR 1.1; Prothrombin Time 13.8 Seconds (11.1-14.7)
[2023-01-07 09:59] LABS: Partial Thromboplastin Time 25.4 SECONDS (22.3-36.8)
[2023-01-07 10:05] LABS: Appearance Urine Clear (Clear); Bilirubin Urine Negative (Negative); Blood Urine Negative (Negative); Color Urine Yellow (Yellow); Glucose Urine UA Negative (Negative); Ketones Urine Negative (Negative); Leukocyte Esterase Ur Negative LEU/UL (Negative); Nitrate Urine Negative (Negative); Protein Urine Negative (Negative); Specific Grav Ur 1.015 (1.001-1.035); Urobilinogen Urine 0.2 mg/dL (<2.0); pH Urine 6.5 (5.0-9.0)
[2023-01-07 10:07] LABS: Add Urine Microscopic? NO
[2023-01-07 10:15] LABS: Amphetamine Screen Urine Negative (Negative); Barbiturate Screen Urine Negative (Negative); Benzodiazepines Screen Urine Positive (Negative); Cannabinoid Screen Urine Positive (Negative); Cocaine Screen Urine Negative (Negative); Methadone Screen Urine Negative (Negative); Opiate Screen Urine Negative (Negative); Phencyclidine Screen Urine Positive (Negative)
--- NOTE | 2023-01-07 14:04 | ED.AMS ---
HPI - Altered Mental Status General Chief Complaint: Altered Mental Status Stated Complaint: ams Time Seen by Provider: 01/07/23 08:39 History of Present Illness HPI narrative: Patient is a 27-year-old male who presents ER with altered mental status. Found by police wandering and acting confused. He has a hospital wristband from [place]. Patient is also walking around with 2 bags of powder that are labeled as benzodiazepines and another bag Adderall on it. He has history of persisting narcotics over the Internet and using them. Patient is awake and alert and will follow commands slowly but does not answer orientation questions. Laurel to be intoxicated. Related Data Home Medications Medication Instructions Recorded Confirmed clonazepam 1 mg tablet 1 mg PO BID 10/14/22 01/04/23 dexmethylphenidate 20 mg 20 mg PO DAILY 10/14/22 01/04/23 capsule,extended release [id number] (Focalin XR) gabapentin 600 mg tablet 600 mg PO TID 10/14/22 01/04/23 quetiapine 50 mg tablet 50 mg PO BID 10/14/22 01/04/23 venlafaxine 37.5 mg 37.5 mg PO DAILY 10/14/22 01/04/23 capsule,extended release 24 hr Focalin DAILY 01/04/23 Allergies Allergy/AdvReac Type Severity Reaction Status Date / Time No Known Allergies Allergy Mild Verified 09/24/21 02:58 [facility] Past Medical History Medical History Depression with anxiety Schizophrenia Surgical History Surgical History No significant past surgical history Family History Family History Other Unknown family medical history Social History Social History Social History: He lives with his mother and has been unemployed for at least 2 years. Code status: Full code. Surrogate decision maker: Mother Smoking status: Former smoker Second hand tobacco smoke exposure: No Alcohol intake: current Alcohol use details: Occasional alcohol use in moderation. Substance use: current Substance use type: marijuana, hallucinogens and sedatives Living arrangements: with family Occupation/Education: unemployed Spiritual care concerns: No Exam Narrative: GENERAL: Well-appearing, well-nourished, and in no acute distress. HEAD: Normocephalic, small nonbleeding abrasion right hairline near the shinto. EYES: PERRL and EOMI. small abrasion right supraorbital ridge. Dried blood over the right shinto and cheek. ENT: Mucous membranes moist. CHEST: Clear to auscultation. No respiratory distress. HEART: Regular rate and rhythm. Normal peripheral pulses. ABDOMEN: Soft, nontender, nondistended. EXTREMITIES: Normal range of motion. No edema. SKIN: Warm, dry, no rash. NEURO: Awake and alert but not oriented. Follows commands. Lateral gaze nystagmus bilaterally. Course Course Emergency Course: Patient awake alert and oriented x3. He speaks with a stutter. He would like his narcotics back that we found on his body. Discussed he would need to present a prescription for the powdered substances that were in a loose baggy. Patient is requesting some Ativan but it is felt that he is abusing narcotics and is just presenting to ER as high. His mom reports that all he does his drugs and she needs to vomit to clean out his room before she can bring him home. When she arrives he will be discharged into her care. Vital Signs Vital signs: Vital Signs Temperature 98.3 F 01/07/23 08:35 Pulse Rate 93 01/07/23 08:35 Respiratory Rate 18 01/07/23 08:35 Blood Pressure 125/71 01/07/23 08:35 Pulse Oximetry 100 01/07/23 08:35 Oxygen Delivery Room Air 01/07/23 08:35 Temperature 98.3 F 01/07/23 08:35 Pulse Rate 79 01/07/23 12:36 Respiratory Rate 17 01/07/23 12:36 Blood Pressure 120/76 01/07/23 12:01 Pulse Oximetry
[2023-01-07] MEDS: SODIUM CHLORIDE 0.9% IV 1,000 ML 999 ML IV CONT (14:09)
--- NOTE | 2023-01-07 15:57 | PC.NURSE ---
Lunch tray ordered for patient at 1557.
== END 2023-01-07 18:15 | disposition home or self-care (01) ==
PROVIDERS: Emergency Provider Emergency Medicine
DX: F19.10 Other psychoactive substance abuse, uncomplicated (principal); F41.8 Other specified anxiety disorders; F20.9 Schizophrenia, unspecified; Z87.891 Personal history of nicotine dependence
CPT/HCPCS: 36415; 51701; 70450; 71045; 80053; 80307; 81003; 82948; 83605; 83735; 84100; 84443; 85025; 85610; 85730; 96360; 96361; 99284; J7030

== ENCOUNTER 2023-03-30 21:42 | Emergency (ER) | payer OTHER, SELFPAY ==
[2023-03-30] VITALS (14 sets, daily range): BP systolic 106–124; BP diastolic 66–95; PULSE 93–127; RESP 15–23; TEMP 36.5; O2SAT 94–100
--- NOTE | ~2023-03-30 | CT_ITS ---
Non-contrast Head CT History: Altered mental status COMPARISON: 01/07/2023 Technique: Axial non-contrast imaging of the brain was performed. Dose reduction technique was used on this scan by utilizing automated exposure control and iterative reconstruction technique. The dose -length product (DLP) was 681.00 mGy-cm. Findings: There is no evidence of intracranial hemorrhage, mass lesion, or acute infarct. Brain par enchyma appears normal. The ventricles and subarachnoid spaces are normal in size. The calvarium ap pears normal. The visualized paranasal sinuses and mastoid air cells are clear. Impression: No significant abnormality seen. Reviewed, dictated and finalized at location . Impression: No significant abnormality seen.
--- NOTE | ~2023-03-30 | XR_ITS ---
EXAMINATION: XR chest 1V portable DATE: 03/30/2023 23:06 INDICATION: Overdose. TECHNIQUE: A single frontal view of the chest was obtained. COMPARISON: Chest single view 01/07/2023 FINDINGS: There is no pneumonia, pleural effusion, or pneumothorax. The heart size is normal. IMPRESSION: 1. No acute cardiopulmonary disease. Reviewed, dictated and finalized at location E.
[2023-03-30] MEDS: SODIUM CHLORIDE 0.9% IV 3,000 ML 999 ML IV CONT (23:21)
[2023-03-30 23:25] LABS: Ethanol 228 mg/dL (<10)
[2023-03-31] VITALS (49 sets, daily range): BP systolic 101–116; BP diastolic 56–73; PULSE 81–103; RESP 10–22; O2SAT 96–100
[2023-03-31 00:05] LABS: Basophils Absolute Auto 0.1 K/mm3 (0.0-0.1); Basophils Percent Auto 0.6 % (0.2-1.2); Eosinophils Absolute Auto 0.1 K/mm3 (0-0.3); Eosinophils Percent Auto 1.4 % (0-4.4); Hematocrit 41.9 % (42.0-52.0); Hemoglobin 13.6 g/dL (14.0-18.0); Immature Granulocyte Absolute 0.16 K/mm3 (0.00-0.031); Immature Granulocyte Percent A 2.1 % (0-0.5); Lymphocytes Absolute Auto 0.94 K/mm3 (0.9-3.2); Lymphocytes Percent Auto 12.1 % (18.3-44.2); Mean Corpuscular HGB Conc 32.5 g/dl (32-36); Mean Corpuscular Hemoglobin 31.4 pg (26-34); Mean Corpuscular Volume 96.8 fl (80-100); Mean Platelet Volume 10.2 fl (7.4-10.4); Monocytes Absolute Auto 0.6 K/mm3 (0.1-0.6); Monocytes Percent Auto 8.1 % (2.6-8.5); Neutrophils Absolute Auto 5.9 K/mm3 (1.3-6.7); Neutrophils Percent Auto 75.7 % (45.5-73.1); Platelet Count Result 289 k/mm3 (150-375); Red Blood Count 4.33 M/mm3 (4.6-6.20); Red Cell Distribution Width 13.5 % (11.5-14.5); White Blood Count 7.8 K/mm3 (4.5-10.0)
--- NOTE | 2023-03-31 00:08 | ECG_ITS ---
Measurements Intervals Printer Rate: 84 P: 63 OK: 150 QRS: 59 QRSD: 96 T: 48 QT: 371 QTc: 439 Interpretive Statements SINUS RHYTHM NORMAL ECG COMPARED TO ECG 01/05/2023 00:53:12 NO SIGNIFICANT CHANGES Electronically Signed On 03-31-2023 7:35:40 CDT by Jet Tran D.O.
--- NOTE | 2023-03-31 00:09 | ED.GENADULT ---
HPI - General Adult General Chief complaint: Overdose <Torsten Alfonso MD - Last Filed: 03/31/23 02:34> Stated complaint: OD <Torsten Alfonso MD - Last Filed: 03/31/23 02:34> Time Seen by Provider: 03/30/23 22:09 <Torsten Alfonso MD - Last Filed: 03/31/23 02:34> History of Present Illness HPI narrative: This is a 27-year-old male with history of ADHD and schizophrenia presenting ED for rest of behavior. The patient's mother called police on him after he started destroying things around the house. She has had multiple issues with him in the past. Please have been at the house and innumerable amount of times for his behavior. She is no longer willing to take him back home. The patient himself says that he is having difficulty dealing with his anxiety. He says that he just needed to get out of the house keys he is not getting along with his mother. He denies any sort of aggressive behavior. He does admit to buying some sort of herbal medication off the Internet and taking it to try to help with his anxiety. He was also admits to drinking alcohol today. Patient denies SI, HI or hallucinations. No physical complaints at this time. <Torsten Alfonso MD - Last Filed: 03/31/23 02:34> Related Data Home medications: Home Medications Medication Instructions Recorded Confirmed clonazepam 1 mg tablet 1 mg PO BID 10/14/22 01/04/23 dexmethylphenidate 20 mg 20 mg PO DAILY 10/14/22 01/04/23 capsule,extended release [id number] (Focalin XR) gabapentin 600 mg tablet 600 mg PO TID 10/14/22 01/04/23 quetiapine 50 mg tablet 50 mg PO BID 10/14/22 01/04/23 venlafaxine 37.5 mg 37.5 mg PO DAILY 10/14/22 01/04/23 capsule,extended release 24 hr Focalin DAILY 01/04/23 <Torsten Alfonso MD - Last Filed: 03/31/23 02:34> Allergies/adverse reactions: Allergies Allergy/AdvReac Type Severity Reaction Status Date / Time No Known Allergies Allergy Mild Verified 09/24/21 02:58 <Torsten Alfonso MD - Last Filed: 03/31/23 02:34> [facility] Past Medical History Medical History: Medical History Depression with anxiety Schizophrenia <Torsten Alfonso MD - Last Filed: 03/31/23 02:34> Surgical History Surgical History: Surgical History No significant past surgical history <Torsten Alfonso MD - Last Filed: 03/31/23 02:34> Family History Family History: Family History Other Unknown family medical history <Torsten Alfonso MD - Last Filed: 03/31/23 02:34> Social History Social History: Social History Social History: He lives with his mother and has been unemployed for at least 2 years. Code status: Full code. Surrogate decision maker: Mother Smoking status: Former smoker Second hand tobacco smoke exposure: No Alcohol intake: current Alcohol use details: Occasional alcohol use in moderation. Substance use: current Substance use type: marijuana, hallucinogens and sedatives Living arrangements: with family Occupation/Education: unemployed Spiritual care concerns: No <Torsten Alfonso MD - Last Filed: 03/31/23 02:34> Exam Narrative: APPEARANCE: No apparent distress. Head: atraumatic. EYES: EOMI, NOSE: Atraumatic NECK: Trachea midline RESPIRATORY: No increased rate of breathing, clear to auscultation CARDIOVASCULAR: RRR, no peripheral edema ABDOMINAL: Non-distended no guarding or rebound MUSCULOSKELETAl: No obvious deformities NEURO: Alert. Moving 4/4 extremities SKIN:: Warm, dry. Normal color PSYCHIATRIC: Flat affect <Torsten Alfonso MD - Last Filed: 03/31/23 02:34> Course Reevaluation(s) Reevaluation #1: Patient care was signed out to me by Dr. Alfonso with crisis evaluation pending. Patient was evaluate
[2023-03-31 00:14] LABS: Appearance Urine Clear (Clear); Bilirubin Urine Negative (Negative); Blood Urine Negative (Negative); Color Urine Yellow (Yellow); Glucose Urine UA Negative (Negative); Ketones Urine Negative (Negative); Leukocyte Esterase Ur Negative LEU/UL (Negative); Nitrate Urine Negative (Negative); Protein Urine Negative (Negative); Urobilinogen Urine 0.2 mg/dL (<2.0); pH Urine 6.5 (5.0-9.0)
[2023-03-31 00:16] LABS: Lactic Acid Reflex 1.9 mmol/L (0.7-2.0)
[2023-03-31 00:24] LABS: INR 0.9; Partial Thromboplastin Time 40.5 SECONDS (22.3-36.8); Prothrombin Time 12.6 Seconds (11.1-14.7)
[2023-03-31 00:25] LABS: Amphetamine Screen Urine Positive (Negative); Barbiturate Screen Urine Negative (Negative); Benzodiazepines Screen Urine Negative (Negative); Cannabinoid Screen Urine Positive (Negative); Cocaine Screen Urine Negative (Negative); Methadone Screen Urine Negative (Negative); Opiate Screen Urine Negative (Negative); Phencyclidine Screen Urine Negative (Negative)
[2023-03-31 00:46] LABS: Add Urine Microscopic? NO
[2023-03-31 00:49] LABS: Influenza A QL RT-PCR Negative (Negative); Influenza B QL RT-PCR Negative (Negative); RSV RNA, RT-PCR Negative (Negative); SARS-CoV-2 RNA PCR Negative (Negative)
[2023-03-31 01:19] LABS: NT Pro B Type Natriuretic Pept < 20 pg/mL (19.9-100)
[2023-03-31 01:23] LABS: Alanine Aminotransferase 77 U/L (6-50); Albumin Level 4.4 g/dL (3.5-5.1); Alkaline Phosphatase 70 U/L (38-126); Anion Gap 9 mmol/L (8-16); Aspartate Amino Transferase 59 U/L (17-59); Bilirubin,Total 0.4 mg/dL (0.2-1.3); Blood Urea Nitrogen 12 mg/dL (9-20); Calcium 8.9 mg/dL (8.4-10.2); Carbon Dioxide 26 mmol/L (22-30); Chloride 108 mmol/L (98-107); Creatine Kinase 1435 U/L (55-170); Estimated CRCL calculation 136 ml/min; Estimated Glomerular Filt Rate > 60; Glucose 97 mg/dL (65-110); Lipase 48 U/L (23-300); Magnesium 2.2 mg/dL (1.6-2.3); Phosphorus 4.6 mg/dL (2.5-4.5); Potassium 4.3 mmol/L (3.4-5.0); Sodium 143 mmol/L (137-145); Thyroid Stimulating Hormone Reflex 0.922 uIU/mL (0.465-4.68)
[2023-03-31 01:34] LABS: Troponin I < 0.012 ng/mL (0.000-0.034)
[2023-03-31 03:15] LABS: Ethanol 150 mg/dL (<10)
--- NOTE | 2023-03-31 03:35 | PC.NURSE ---
spoke to crisis and will come evaluate patient
--- NOTE | 2023-03-31 04:53 | PC.NURSE ---
crisis here to evaluate patient
== END 2023-03-31 08:16 | disposition home or self-care (01) ==
PROVIDERS: Emergency Provider Emergency Medicine
DX: T50.901A Poisoning by unspecified drugs, medicaments and biological substances, accidental (unintentional), initial encounter (principal); Z20.822 Contact with and (suspected) exposure to COVID-19; F20.9 Schizophrenia, unspecified; F90.9 Attention-deficit hyperactivity disorder, unspecified type; F41.8 Other specified anxiety disorders; Z87.891 Personal history of nicotine dependence
CPT/HCPCS: 36415; 70450; 71045; 80053; 80307; 81003; 82550; 83605; 83690; 83735; 83880; 84100; 84443; 84484; 85025; 85610; 85730; 87637; 93005; 96360; 96361; 99284; J7030

== ENCOUNTER 2023-04-02 16:05 | Emergency (ER) | payer OTHER, SELFPAY ==
[2023-04-02] VITALS (20 sets, daily range): BP systolic 119; BP diastolic 69; PULSE 91–107; RESP 12–19; TEMP 36.8; O2SAT 96–99
--- NOTE | ~2023-04-02 | CT_ITS ---
EXAMINATION: CT brain wo con DATE: 04/02/2023 16:40 INDICATION: altered mental status . TECHNIQUE: Computed tomography (CT) of the head was performed without intravenous contrast. The mA wa s adjusted according to patient size. Iterative reconstruction technique was employed. The dose-lengt h product was 605.33 mGy-cm. COMPARISON: 03/30/2023. FINDINGS: No acute intracranial hemorrhage or extra-axial fluid collection. No hydrocephalus, mass, or herniation. No acute ischemic infarct. Unremarkable dural venous sinus attenuation. No acute osseous abnormality. The aerated spaces are clear. IMPRESSION: No acute intracranial process. Reviewed, dictated and finalized at location K.
--- NOTE | ~2023-04-02 | XR_ITS ---
EXAMINATION: XR chest 1V portable Exam Date/Time: 04/02/2023 16:50 CDT HISTORY: altered mental status Comparison: 03/30/2023. RESULT: Lines, tubes, and devices: None. Lungs and pleura: Clear. Cardiomediastinal silhouette: Stable. Other: No acute osseous or upper abdominal finding. IMPRESSION: No acute cardiopulmonary process. Reviewed, dictated and finalized at location K.
--- NOTE | 2023-04-02 16:13 | ECG_ITS ---
Measurements Intervals Horner Rate: 102 P: 56 MN: 128 QRS: 50 QRSD: 93 T: 50 QT: 349 QTc: 456 Interpretive Statements SINUS TACHYCARDIA ST ELEVATION IN ANTEROLATERAL LEADS- PROBABLY EARLY REPOLARIZATION ABNORMALITY BORDERLINE ECG COMPARED TO ECG 03/31/2023 00:08:30 SINUS TACHYCARDIA NOW PRESENT Electronically Signed On 04-02-2023 20:39:40 CDT by Jet Tran D.O.
--- NOTE | 2023-04-02 16:26 | ED.GENADULT ---
HPI - General Adult General Chief complaint: Overdose <Silvia Bejarano MD - Last Filed: 04/02/23 23:14> Stated complaint: overdose <Silvia Bejarano MD - Last Filed: 04/02/23 23:14> Time Seen by Provider: 04/02/23 16:08 <Silvia Bejarano MD - Last Filed: 04/02/23 23:14> Source: patient, EMS and RN notes reviewed <Silvia Bejarano MD - Last Filed: 04/02/23 23:14> Mode of arrival: EMS <Silvia Bejarano MD - Last Filed: 04/02/23 23:14> Limitations: altered mental status <Silvia Bejarano MD - Last Filed: 04/02/23 23:14> History of Present Illness HPI narrative: This is a 27 year old male with history of bipolar disorder and alcohol abuse who presents for evaluation of altered mental status. Patient was last seen normal last night and today his mother found him. IT is reported that patient was drinking last night. He is able to tell me his name. when asked his age, he tells me his birthday. He states he has not taken any other medication than what he is normally prescribed. He denies drug use. he does admit to drinking alcohol. He denies any pain or complaints. <Silvia Bejarano MD - Last Filed: 04/02/23 23:14> Related Data Home medications: Home Medications Medication Instructions Recorded Confirmed clonazepam 1 mg tablet 1 mg PO BID 10/14/22 01/04/23 dexmethylphenidate 20 mg 20 mg PO DAILY 10/14/22 01/04/23 capsule,extended release [id number] (Focalin XR) gabapentin 600 mg tablet 600 mg PO TID 10/14/22 01/04/23 quetiapine 50 mg tablet 50 mg PO BID 10/14/22 01/04/23 venlafaxine 37.5 mg 37.5 mg PO DAILY 10/14/22 01/04/23 capsule,extended release 24 hr Focalin DAILY 01/04/23 <Silvia Bejarano MD - Last Filed: 04/02/23 23:14> Allergies/adverse reactions: Allergies Allergy/AdvReac Type Severity Reaction Status Date / Time No Known Allergies Allergy Mild Verified 09/24/21 02:58 <Silvia Bejarano MD - Last Filed: 04/02/23 23:14> Review of Systems Review of Systems: ROS unobtainable: Yes unobtainable due to mental status <Silvia Bejarano MD - Last Filed: 04/02/23 23:14> [facility] Past Medical History Medical History: Medical History Depression with anxiety Schizophrenia <Silvia Bejarano MD - Last Filed: 04/02/23 23:14> Surgical History Surgical History: Surgical History No significant past surgical history <Silvia Bejarano MD - Last Filed: 04/02/23 23:14> Family History Family History: Family History Other Unknown family medical history <Silvia Bejarano MD - Last Filed: 04/02/23 23:14> Social History Social History: Social History Social History: He lives with his mother and has been unemployed for at least 2 years. Code status: Full code. Surrogate decision maker: Mother Smoking status: Former smoker Second hand tobacco smoke exposure: No Alcohol intake: current Alcohol use details: Occasional alcohol use in moderation. Substance use: current Substance use type: marijuana and prescription drug Living arrangements: with family Occupation/Education: unemployed Spiritual care concerns: No <Silvia Bejarano MD - Last Filed: 04/02/23 23:14> Exam Const: General: no acute distress and alert <Silvia Bejarano MD - Last Filed: 04/02/23 23:14> Limitations: altered mental status <Silvia Bejarano MD - Last Filed: 04/02/23 23:14> Other: oriented to person <Silvia Bejarano MD - Last Filed: 04/02/23 23:14> HENMT: Head: normal to inspection <Silvia Bejarano MD - Last Filed: 04/02/23 23:14> Face and sinus: normal facial exam and sinuses nontender <Silvia Bejarano MD - Last Filed: 04/02/23 23:14> Mouth: Yes Normal oral and palatal mucos
[2023-04-02 16:54] LABS: Glucose Point of Care 104 mg/dl (65-105)
[2023-04-02 16:57] LABS: Basophils Absolute Auto 0.1 K/mm3 (0.0-0.1); Eosinophils Absolute Auto 0.1 K/mm3 (0-0.3); Eosinophils Percent Auto 1.9 % (0-4.4); Hematocrit 46.2 % (42.0-52.0); Hemoglobin 15.3 g/dL (14.0-18.0); Immature Granulocyte Absolute 0.26 K/mm3 (0.00-0.031); Immature Granulocyte Percent A 4.2 % (0-0.5); Lymphocytes Absolute Auto 1.95 K/mm3 (0.9-3.2); Lymphocytes Percent Auto 31.3 % (18.3-44.2); Mean Corpuscular HGB Conc 33.1 g/dl (32-36); Mean Corpuscular Hemoglobin 31.5 pg (26-34); Mean Corpuscular Volume 95.3 fl (80-100); Mean Platelet Volume 9.4 fl (7.4-10.4); Monocytes Absolute Auto 0.7 K/mm3 (0.1-0.6); Monocytes Percent Auto 11.2 % (2.6-8.5); Neutrophils Absolute Auto 3.1 K/mm3 (1.3-6.7); Neutrophils Percent Auto 50.4 % (45.5-73.1); Platelet Count Result 364 k/mm3 (150-375); Red Blood Count 4.85 M/mm3 (4.6-6.20); Red Cell Distribution Width 13.6 % (11.5-14.5); White Blood Count 6.2 K/mm3 (4.5-10.0)
[2023-04-02] MEDS: SODIUM CHLORIDE 0.9% IV 1,000 ML 999 ML IV CONT (17:03)
[2023-04-02 17:09] LABS: Alanine Aminotransferase 58 U/L (6-50); Albumin Level 4.9 g/dL (3.5-5.1); Alkaline Phosphatase 76 U/L (38-126); Anion Gap 15 mmol/L (8-16); Aspartate Amino Transferase 31 U/L (17-59); Bilirubin,Total 0.3 mg/dL (0.2-1.3); Blood Urea Nitrogen 12 mg/dL (9-20); Calcium 8.2 mg/dL (8.4-10.2); Carbon Dioxide 25 mmol/L (22-30); Chloride 109 mmol/L (98-107); Creatine Kinase 440 U/L (55-170); Estimated CRCL calculation 113 ml/min; Estimated Glomerular Filt Rate > 60; Glucose 100 mg/dL (65-110); Magnesium 2.5 mg/dL (1.6-2.3); Potassium 4.1 mmol/L (3.4-5.0); Sodium 149 mmol/L (137-145)
[2023-04-02 17:14] LABS: INR 0.9; Prothrombin Time 12.6 Seconds (11.1-14.7)
[2023-04-02 17:14] LABS: Lactic Acid Reflex 1.1 mmol/L (0.7-2.0)
[2023-04-02 17:15] LABS: Partial Thromboplastin Time 45.2 SECONDS (22.3-36.8)
[2023-04-02 17:17] LABS: Appearance Urine Clear (Clear); Bilirubin Urine Negative (Negative); Blood Urine Negative (Negative); Color Urine Yellow (Yellow); Glucose Urine UA Negative (Negative); Ketones Urine Negative (Negative); Leukocyte Esterase Ur Negative LEU/UL (Negative); Nitrate Urine Negative (Negative); Protein Urine Negative (Negative); Specific Grav Ur 1.012 (1.001-1.035); Urobilinogen Urine 0.2 mg/dL (<2.0)
[2023-04-02 17:20] LABS: Add Urine Microscopic? NO
[2023-04-02 17:21] LABS: Acetaminophen < 10 ug/mL (10-30)
[2023-04-02 17:22] LABS: Ethanol 346 mg/dL (<10)
[2023-04-02 17:34] LABS: Amphetamine Screen Urine Negative (Negative); Barbiturate Screen Urine Negative (Negative); Benzodiazepines Screen Urine Negative (Negative); Cannabinoid Screen Urine Positive (Negative); Cocaine Screen Urine Negative (Negative); Methadone Screen Urine Negative (Negative); Opiate Screen Urine Negative (Negative); Phencyclidine Screen Urine Negative (Negative)
[2023-04-02 17:35] LABS: SARS-CoV-2 RNA PCR Negative (Negative)
[2023-04-02 17:39] LABS: Thyroid Stimulating Hormone 0.626 uIU/mL (0.465-4.680)
--- NOTE | 2023-04-02 19:12 | PC.NURSE ---
1909 Assumed pt care from CINDY Cummings
[2023-04-03] VITALS (15 sets, daily range): BP systolic 118–134; BP diastolic 65–74; PULSE 66–106; RESP 14–17; O2SAT 96–100
[2023-04-03 04:16] LABS: Ethanol 35 mg/dL (<10)
== END 2023-04-03 04:49 | disposition home or self-care (01) ==
PROVIDERS: General Practice; Emergency Provider Preventive Medicine Aerospace Medicine
DX: F10.120 Alcohol abuse with intoxication, uncomplicated (principal); Y90.8 Blood alcohol level of 240 mg/100 ml or more; F31.9 Bipolar disorder, unspecified; F41.8 Other specified anxiety disorders; F20.9 Schizophrenia, unspecified; Z87.891 Personal history of nicotine dependence; Z20.822 Contact with and (suspected) exposure to COVID-19
CPT/HCPCS: 36415; 70450; 71045; 80053; 80307; 81003; 82550; 82948; 83605; 83735; 84443; 85025; 85610; 85730; 87635; 93005; 96361; 96365; 96366; 99284; J3411; J3475; J7030; J7121; U0005

== ENCOUNTER 2023-06-19 18:21 | Emergency (ER) | payer OTHER, SELFPAY ==
[2023-06-19 18:35] VITALS: BP 136/78; PULSE 110; RESP 16; TEMP 36.7; O2SAT 100
--- NOTE | 2023-06-19 21:06 | PC.NURSE ---
Pt opens room number and states he is going to be leaving. RN asked if the MD has seen him yes, pt states yes, but i would like to go to [place] . RN informed pt to stay in room while MD is informed. Pt stayed in room at this time.
--- NOTE | 2023-06-19 21:09 | PC.NURSE ---
Patient presents to the desk and states Im just going to go to [facility] . This RN explained risks of patient leaving AMA. Patient was A&Ox4 and ambulatory upon leaving department
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
== END 2023-06-19 21:40 | disposition left against medical advice (07) ==
PROVIDERS: Emergency Provider Emergency Medicine
DX: R59.1 Generalized enlarged lymph nodes (principal); F41.8 Other specified anxiety disorders; F20.9 Schizophrenia, unspecified; Z87.891 Personal history of nicotine dependence
CPT/HCPCS: 99281; 99283

== ENCOUNTER 2023-10-03 21:27 | Inpatient (IN) | payer OTHER, SELFPAY ==
[2023-10-03] VITALS (7 sets, daily range): BP systolic 112–122; BP diastolic 65–76; PULSE 79–96; RESP 19–25; O2SAT 94–100
--- NOTE | ~2023-10-03 | CT_ITS ---
Non-contrast Head CT History: Altered mental status COMPARISON: 04/02/2023 Technique: Axial non-contrast imaging of the brain was performed. Dose reduction technique was used on this scan by utilizing automated exposure control and iterative reconstruction technique. The dose -length product (DLP) was 605.33 mGy-cm. Findings: There is no evidence of intracranial hemorrhage, mass lesion, or acute infarct. Brain par enchyma appears normal. The ventricles and subarachnoid spaces are normal in size. The calvarium ap pears normal. The visualized paranasal sinuses and mastoid air cells are clear. Impression: No significant abnormality seen. Reviewed, dictated and finalized at location . MANAGER Impression: No significant abnormality seen.
--- NOTE | ~2023-10-03 | US_ITS ---
EXAMINATION: US renal BI DATE: 10/05/2023 10:12 INDICATION: Acute kidney injury. TECHNIQUE: Multiple ultrasound grayscale images of the kidneys were obtained. COMPARISON: None. FINDINGS: The right kidney measures 11.7 x 5.1 x 6.4 cm. The left kidney measures 11.6 x 5.4 x 5.2 cm. The kidn eys demonstrate normal parenchymal echogenicity. There is no hydronephrosis. The bladder is decompres sed by a Linda catheter. IMPRESSION: 1. Normal kidneys. No hydronephrosis. Reviewed, dictated and finalized at location A. ERADICATOR
--- NOTE | 2023-10-03 21:39 | ECG_ITS ---
Measurements Intervals [place] Rate: 81 P: [place]: 0 QRS: 74 QRSD: 96 T: 65 QT: 390 QTc: 453 Interpretive Statements SINUS RHYTHM ST ELEVATION IN ANTEROLATERAL LEADS- PROBABLY EARLY REPOLARIZATION ABNORMALITY BASELINE ARTIFACT- I, II, III, AVR, AVL, AVF, V1-V6 BORDERLINE ECG COMPARED TO ECG 04/02/2023 16:57:45 SINUS RHYTHM NO PRESENT Electronically Signed On 10-04-2023 6:07:59 CREELER by Jet Tran D.O.
[2023-10-03 22:02] LABS: Alveolar/Arterial O2 Gradient 18.1 mmHg; Fractional Inspired Oxygen 21 %; Oxygen Content ABG 21.3 %vol (16.0-22.0); Oxygen Saturation ABG 94.6 % (95.0-100.0); Oxyhemoglobin 94.1 % THb (90.0-100.0); PCO2 ABG 46.9 mmHg (35.0-45.0); PO2 ABG 75.5 mmHg (80.0-100.0); Total Hemoglobin 16.1 g/dL (12.0-18.0); pH ABG 7.362 (7.350-7.450)
[2023-10-03 22:03] LABS: Basophils Percent Auto 0.4 % (0.2-1.2); Eosinophils Absolute Auto 0.3 K/mm3 (0-0.3); Eosinophils Percent Auto 3.6 % (0-4.4); Hematocrit 47.7 % (42.0-52.0); Hemoglobin 15.3 g/dL (14.0-18.0); Immature Granulocyte Absolute 0.03 K/mm3 (0.00-0.031); Immature Granulocyte Percent A 0.4 % (0-0.5); Lymphocytes Percent Auto 9.3 % (18.3-44.2); Mean Corpuscular HGB Conc 32.1 g/dl (32-36); Mean Corpuscular Hemoglobin 31.6 pg (26-34); Mean Corpuscular Volume 98.6 fl (80-100); Mean Platelet Volume 10.5 fl (7.4-10.4); Monocytes Absolute Auto 0.9 K/mm3 (0.1-0.6); Monocytes Percent Auto 10.4 % (2.6-8.5); Neutrophils Absolute Auto 6.5 K/mm3 (1.3-6.7); Neutrophils Percent Auto 75.9 % (45.5-73.1); Platelet Count Result 244 k/mm3 (150-375); Red Blood Count 4.84 M/mm3 (4.6-6.20); Red Cell Distribution Width 13.2 % (11.5-14.5); White Blood Count 8.6 K/mm3 (4.5-10.0)
[2023-10-03 22:04] LABS: Device ROOM AIR; Modified Allen's Test Pass; Site Drawn LEFT RADIAL
[2023-10-03 22:16] LABS: Acetaminophen < 10 ug/mL (10-30); Alanine Aminotransferase 62 U/L (6-50); Albumin Level 5.1 g/dL (3.5-5.1); Alkaline Phosphatase 55 U/L (38-126); Anion Gap 19 mmol/L (8-16); Aspartate Amino Transferase 50 U/L (17-59); Blood Urea Nitrogen 19 mg/dL (9-20); Calcium 9.4 mg/dL (8.4-10.2); Carbon Dioxide 24 mmol/L (22-30); Chloride 100 mmol/L (98-107); Estimated CRCL calculation 102 ml/min; Estimated Glomerular Filt Rate > 60; Ethanol < 10 mg/dL (<10); Glucose 193 mg/dL (65-110); Potassium 4.3 mmol/L (3.4-5.0); Salicylate < 1.0 mg/dL (2-20); Sodium 143 mmol/L (137-145)
--- NOTE | 2023-10-03 22:40 | ED.GENADULT ---
HPI - General Adult General Chief complaint: Overdose Stated complaint: OD Time Seen by Provider: 10/03/23 21:29 History of Present Illness HPI narrative: Patient brought in by EMS found unresponsive. History of being schizophrenic and taking random street drugs to both treat his schizophrenia. Patient cannot contribute to the history because he is unresponsive Related Data Home Medications Medication Instructions Recorded Confirmed clonazepam 1 mg tablet 1 mg PO BID 10/14/22 01/04/23 dexmethylphenidate 20 mg 20 mg PO DAILY 10/14/22 01/04/23 capsule,extended release [id number] (Focalin XR) gabapentin 600 mg tablet 600 mg PO TID 10/14/22 01/04/23 quetiapine 50 mg tablet 50 mg PO BID 10/14/22 01/04/23 venlafaxine 37.5 mg 37.5 mg PO DAILY 10/14/22 01/04/23 capsule,extended release 24 hr Focalin DAILY 01/04/23 Allergies Allergy/AdvReac Type Severity Reaction Status Date / Time No Known Allergies Allergy Mild Verified 09/24/21 02:58 Review of Systems Review of Systems: Unable to obtain review of systems due to patient's mental status changes [facility] Past Medical History Medical History Depression with anxiety Schizophrenia Surgical History Surgical History No significant past surgical history Family History Family History Other Unknown family medical history Social History Social History Social History: He lives with his mother and has been unemployed for at least 2 years. Code status: Full code. Surrogate decision maker: Mother Smoking status: Former smoker Second hand tobacco smoke exposure: No Alcohol intake: current Alcohol use details: Occasional alcohol use in moderation. Substance use: current Substance use type: marijuana and prescription drug Living arrangements: with family Occupation/Education: unemployed Spiritual care concerns: No Exam Narrative: GENERAL: unresponsive HEAD: Normocephalic, atraumatic. EYES: PERRLA and EOMI. ENT: Nares clear, no rhinorrhea or epistaxis. Mucous membranes moist. NECK: Supple. CHEST: Clear to auscultation. No respiratory distress. HEART: Regular rate and rhythm. ABDOMEN: Soft, nontender, nondistended. EXTREMITIES: Normal range of motion. No edema. SKIN: Warm, dry, no rash. NEURO: Spontaneous movement of all extremities, patient is unresponsive and moaning PSYCH: Unresponsive. Course Vital Signs Vital signs: Vital Signs Pulse Rate 79 10/03/23 21:22 Respiratory Rate 23 H 10/03/23 21:22 Blood Pressure 122/76 10/03/23 21:22 Pulse Oximetry 94 10/03/23 21:22 Oxygen Delivery Room Air 10/03/23 21:22 Pulse Rate 80 10/04/23 03:35 Respiratory Rate 15 10/04/23 03:35 Blood Pressure 110/63 10/04/23 03:35 Pulse Oximetry 99 10/04/23 03:35 Oxygen Delivery Room Air 10/03/23 21:22 Medical Decision Making MDM Narrative Medical decision making narrative: Had full discussion with hospitalist regarding patient's history and previous presentations to the emergency department. She is concerned that he could have an anticholinergic overdose and be retaining urine. Bedside evaluation reveals over 650 cc of urine in his bladder. Patient has previously pulled out his IV. Hospitalist is also concerned he is dehydrated and needs a 2 L of normal saline. Ativan ordered to sedate the patient because for people needed to restrain him during the initial IV placement. Vital signs are stable and he is not hypoxic. CT head resulted as normal. Patient has a history of taking peyote and synthetic drugs. Unclear what he is overdosed on or his intention Due to high probability of clinically significant lift threatening deterioration, the swapna
[2023-10-03] MEDS: LORazepam INJ (*CRX) 2 MG/ML VIAL IV PUSH (22:45)
[2023-10-03 23:46] LABS: Benzodiazepines Screen Urine Positive (Negative)
[2023-10-03 23:48] LABS: Amphetamine Screen Urine Negative (Negative); Cannabinoid Screen Urine Negative (Negative); Cocaine Screen Urine Negative (Negative); Methadone Screen Urine Negative (Negative); Phencyclidine Screen Urine Positive (Negative)
[2023-10-03 23:49] LABS: Barbiturate Screen Urine Negative (Negative)
[2023-10-03 23:58] LABS: Amorphous Sediment Urine Present; Appearance Urine Turbid (Clear); Bacteria Urine None Seen /hpf; Bilirubin Urine 2+ (Negative); Blood Urine Negative (Negative); Color Urine Dark Yellow (Yellow); Glucose Urine UA Negative (Negative); Ketones Urine 1+ mg/dL (Negative); Leukocyte Esterase Ur Negative LEU/UL (Negative); Mucus Urine Present /lpf; Nitrate Urine Negative (Negative); Non Pathogenic Casts 0-2; Protein Urine Trace mg/dL (Negative); RBC Urine 0-2 /hpf (0-2); Specific Grav Ur 1.027 (1.001-1.035); Squamous Epithelial Cell Urine None seen /hpf (Few); pH Urine 5.5 (5.0-9.0)
[2023-10-04] VITALS (38 sets, daily range): BP systolic 100–127; BP diastolic 57–81; PULSE 55–96; RESP 14–28; TEMP 36.2–36.9; O2SAT 95–100; BMI 23.8
[2023-10-04 00:08] LABS: Opiate Screen Urine Negative (Negative)
[2023-10-04 00:10] LABS: Add Urine Microscopic? YES
[2023-10-04] MEDS: LORazepam INJ (*CRX) 2 MG/ML VIAL 1 MG IV PUSH (00:39)
[2023-10-04] MEDS: SODIUM CHLORIDE 0.9% IV 1,000 ML 999 ML IV CONT ×2 (00:41→05:34)
--- NOTE | 2023-10-04 01:00 | ECG_ITS ---
Measurements Intervals [place] Rate: 82 P: 59 [place]: 146 QRS: 67 QRSD: 105 T: 49 QT: 386 QTc: 453 Interpretive Statements SINUS RHYTHM NORMAL ECG COMPARED TO ECG 10/03/2023 22:29:06 NO SIGNIFICANT CHANGES Electronically Signed On 10-04-2023 9:08:44 SOIL SCIENCE TEACHER by Jet Tran D.O.
--- NOTE | 2023-10-04 02:24 | PC.NURSE ---
Patient pulled his IV out
[2023-10-04] MEDS: LORazepam INJ (*CRX) 2 MG/ML VIAL IM (04:50)
--- NOTE | 2023-10-04 06:00 | ADMGEN ---
This patient, Lokesh Wyatt, was admitted to Intensive Care Unit-3. Patient/family oriented to hospital policies and general routines including ID bracelet, bed and alarms, visiting hours, pain management, procedures, bathroom and other care routines, personal items, smoking policy, room service/diet, and visiting hours. Information on how to activate the Rapid Response Team has been discussed. Patient/Family are encouraged to report perceived risks to care and to ask questions if they do not understand what they are told or what they should do.
--- NOTE | 2023-10-04 06:06 | PC.NURSE ---
Patient was beginning to violently thrash when nursing staff was going to place a cao catheter and a new IV. Patient was being assisted with not pulling at lines by six ED staff members. Notified EDP Dr. Oro who verbally ordered violent restraints.
--- NOTE | 2023-10-04 06:08 | PC.NURSE ---
Patient was still attempting to maneuver his body to pull out his cao catheter. Notified EDP Dr. Oro of patients action. No further action or orders from EDP.
[2023-10-04] MEDS: dexmedeTOMIDine 400 MCG/100 ML 400 MCG/100 ML BAG (06:27)
[2023-10-04] MEDS: dexmedeTOMIDine 400 MCG/100 ML 400 MCG/100 ML BAG 12.08 MCG IV CONT (06:27)
--- NOTE | 2023-10-04 07:00 | PC.NURSE ---
Precedex drip noted to be initiated and running at 0.7 mcg/kg/hr per D Marylou WHITE at 0627. Discontinued by this nurse at 0800 due to RASS of [address] Jackson.
--- NOTE | 2023-10-04 07:10 | PM.IMHP ---
H&P: HPI History of Present Illness Date/Time: 10/04/23 06:45 Chief Complaint: Unresponsive Narrative: 27-year-old male with a known past medical history of schizophrenia, and alcohol uses well as polysubstance use to self medicate for schizophrenia who was brought in to the ER via EMS when his mother found him unresponsive in the basement. The patient has in the past ordered synthetic drugs off the Internet and has used street drugs to treat his symptoms of schizophrenia. The patient is unable to provide any history and is currently sedated after receiving Precedex. The patient was unresponsive on initial presentation to the ER. However with staff performing procedures in the patient he became violent and required sedation with Ativan. The patient appeared dehydrated. He was found to be retaining urine in the ER greater than 1 L. Linda catheter was placed. When Linda catheter was placed the patient became extremely violent and agitated and required 4 point hard restraints despite Ativan administration. It is unclear if the patient's symptoms are due to schizophrenia versus drug intoxication. The patient's urine drug screen positive for benzodiazepines and PCP. However the patient has also been admitted in the past for anticholinergic overdose is when he orders medications off the Internet. Review of Systems Review of Systems: ROS unobtainable: Yes unobtainable due to mental status PMFSH Past Medical History Medical History Depression with anxiety Schizophrenia Surgical History Surgical History No significant past surgical history Family History Family History Other Unknown family medical history Social History Social History (Updated 10/04/23 @ 07:18 by Monica Barlow DO) Social History: He lives with his mother and has been unemployed for at least 3 years. Code status: Full code. Surrogate decision maker: Mother Smoking status: Former smoker Second hand tobacco smoke exposure: No Alcohol intake: current Alcohol use details: Occasional alcohol use in moderation. Substance use: current Substance use type: marijuana and sedatives Living arrangements: with family Occupation/Education: unemployed Spiritual care concerns: No Meds Home Medications and Allergies Home Medications Medication Instructions Recorded Confirmed Type clonazepam 1 mg tablet 1 mg PO BID PRN Anxiety 10/14/22 10/04/23 History gabapentin 600 mg tablet 600 mg PO TID 10/14/22 10/04/23 History quetiapine 50 mg tablet 50 mg PO BID 10/14/22 10/04/23 History venlafaxine 37.5 mg 37.5 mg PO DAILY 10/14/22 10/04/23 History capsule,extended release 24 hr lisdexamfetamine 30 mg capsule 30 mg PO DAILY 10/04/23 10/04/23 History (Amna) olanzapine 15 mg tablet 15 mg PO DAILY 10/04/23 10/04/23 History Allergies Allergy/AdvReac Type Severity Reaction Status Date / Time No Known Allergies Allergy Mild Verified 09/24/21 02:58 Vital Signs Vital Signs - 24 hr 10/03/23 21:22 10/03/23 23:23 10/04/23 01:43 Temperature Pulse Rate 79 83 94 Respiratory Rate 23 H 23 H Blood Pressure 122/76 112/72 Pulse Oximetry 94 96 Oxygen Delivery Room Air 10/04/23 03:35 10/03/23 23:29 10/03/23 23:30 Temperature Pulse Rate 80 92 81 Respiratory Rate 15 22 H 23 H Blood Pressure 110/63 112/72 112/70 Pulse Oximetry 99 97 99 Oxygen Delivery 10/03/23 23:31 10/03/23 23:45 10/03/23 23:46 Temperature Pulse Rate 83 96 90 Respiratory Rate 22 H 25 H 19 Blood Pressure 117/65 Pulse Oximetry 98 100 100 Oxygen Delivery 10/04/23 00:25 10/04/23 00:31 10/04/23 00:45 Temperature Pulse Rate 92 87 84 Respiratory Rate 20 23 H 20 Blood Pressure 114/58 L Pulse Oximetry Oxygen Delivery 10/04/23 00:46 10/04/23 01:3
[2023-10-04 07:50] LABS: Hematocrit 42.4 % (42.0-52.0); Hemoglobin 14.2 g/dL (14.0-18.0); Mean Corpuscular HGB Conc 33.5 g/dl (32-36); Mean Corpuscular Volume 95.5 fl (80-100); Mean Platelet Volume 10.6 fl (7.4-10.4); Platelet Count Result 235 k/mm3 (150-375); Red Blood Count 4.44 M/mm3 (4.6-6.20); Red Cell Distribution Width 13.2 % (11.5-14.5); White Blood Count 10.7 K/mm3 (4.5-10.0)
[2023-10-04 08:00] LABS: Anion Gap 13 mmol/L (8-16); Blood Urea Nitrogen 17 mg/dL (9-20); Calcium 8.9 mg/dL (8.4-10.2); Carbon Dioxide 25 mmol/L (22-30); Chloride 108 mmol/L (98-107); Estimated CRCL calculation 92 ml/min; Estimated Glomerular Filt Rate > 60; Glucose 112 mg/dL (65-110); Potassium 3.6 mmol/L (3.4-5.0); Sodium 146 mmol/L (137-145)
[2023-10-04 08:08] LABS: Creatine Kinase 3028 U/L (55-170)
[2023-10-04 08:51] LABS: Alveolar/Arterial O2 Gradient < 0.0 mmHg; Base Excess ABG -2.9 mEq/l (+/-2.0); Carboxyhemoglobin 0.4 % THb (0-2.0); Fractional Inspired Oxygen 21 %; HCO3 ABG 23.7 mEq/l (22.0-26.0); Methemoglobin ABG 0.4 %THb (0-1.5); Oxygen Content ABG 20.8 %vol (16.0-22.0); Oxygen Saturation ABG 96.6 % (95.0-100.0); Oxyhemoglobin 95.6 % THb (90.0-100.0); PCO2 ABG 47.4 mmHg (35.0-45.0); PO2 ABG 94.1 mmHg (80.0-100.0); PO2 FiO2 Ratio Arterial Blood 4.48 %; Reduced Hemoglobin 3.6 %THb (0-5.0); Total Hemoglobin 15.4 g/dL (12.0-18.0); pH ABG 7.316 (7.350-7.450)
[2023-10-04 08:52] LABS: Site Drawn LEFT FEMORAL
[2023-10-04] MEDS: flumazeniL 0.5 MG/5 ML VIAL 0.2 MG IV PUSH (09:33)
[2023-10-04] MEDS: ENOXAPARIN 40 MG/0.4 ML SYRINGE SUB-Q (09:33)
[2023-10-04] MEDS: KCL 20 MEQ/D5/0.45% SOD CHL 1,000 ML 150 ML IV CONT ×3 (09:33→23:18)
--- NOTE | 2023-10-04 09:58 | WPDCNINT ---
Assessment and Plan Assessment and plan (1) Respiratory failure: Code(s): J96.90 - Respiratory failure, unspecified, unspecified whether with hypoxia or hypercapnia Status: Acute Assessment and Plan: As above mention during my initial assessment patient is completely obtunded. His end-tidal CO2 was acceptable I obtained an ABG. Which showed mild respiratory acidosis. On exam patient had no cough or gag reflex. I discontinued his Precedex infusion. I gave patient 2 doses of Romazicon without any significant improvement. His saturations were adequate on room air. I decided to intubate the patient for airway protection patient was not protecting his airway. Patient was set up and prepared for intubation and when I inserted the glide scope to intubate the patient, he started coughing and woke up and became more responsive and started making grunting noises and moaning. At that point I decided not to proceed with intubation since patient was now responsive and able to protect his airway. Will continue with end-tidal CO2 monitoring and oxygen supplementation as needed. Hopefully with time his Ativan will wear off. Chest X will remain on hold at this time (2) Acute urinary retention: Code(s): R33.8 - Other retention of urine Status: Acute Assessment and Plan: Linda has been placed (3) Polysubstance overdose: Qualifiers: Encounter type: initial encounter Injury intent: undetermined intent Qualified Code(s): T50.904A - Poisoning by unspecified drugs, medicaments and biological substances, undetermined, initial encounter Code(s): T50.901A - Poisoning by unspecified drugs, medicaments and biological substances, accidental (unintentional), initial encounter Status: Acute Assessment and Plan: Urine drug screen positive for PCP and benzodiazepine. Continue supportive management (4) Encephalopathy: Code(s): G93.40 - Encephalopathy, unspecified Status: Acute Assessment and Plan: Toxic metabolic encephalopathy Hold sedatives at this time Head CT was negative ABG reviewed (5) Rhabdomyolysis: Qualifiers: Rhabdomyolysis type: non-traumatic Qualified Code(s): M62.82 - Rhabdomyolysis Code(s): M62.82 - Rhabdomyolysis Status: Acute Assessment and Plan: IV fluids ordered Monitor urine output electrolytes and creatinine Monitor CK (6) Electrolyte abnormality: Code(s): E87.8 - Other disorders of electrolyte and fluid balance, not elsewhere classified Status: Acute Assessment and Plan: IV fluids with potassium ordered for hypernatremia and hypokalemia Plan DVT prophylaxis -Lovenox Nutrition -NPO at this time Code Status - Full Code Total Critical Care Time - 50 minutes Due to a high probability of clinically significant, life threatening deterioration, the patient required my highest level of preparedness to intervene emergently and I personally spent this critical care time directly and personally managing the patient. This critical care time included obtaining a history; examining the patient; pulse oximetry; ordering and review of studies; arranging urgent treatment with development of a management plan; evaluation of patient's response to treatment; frequent reassessment; and discussions with other providers. It was exclusive of separately billable procedures and treating other patients and teaching time. Please see Assessment and Plan section and the rest of the note for further information on patient assessment and treatment Ventilation Worker Consult Note Consult date: 10/04/23 Reason for consult: Altered mental status, agitation HPI: Lokesh Wyatt is a 27 year old male with past medical history of schizophrenia and depression with anxiety was found unresponsive by EMS. Patient also has history of polysubstance abuse and takes random drugs from the street. In ER patient was unable to provide any meani
[2023-10-04 12:55] LABS: Device ROOM AIR
--- NOTE | 2023-10-04 16:58 | PM.IMPN ---
Subjective Date/time seen: 10/04/23 16:58 Interval history: 27-year-old male with a known past medical history of schizophrenia, and alcohol uses well as polysubstance use to self medicate for schizophrenia who was brought in to the ER via EMS when his mother found him unresponsive in the basement.? The patient has in the past ordered synthetic drugs off the Internet and has used street drugs to treat his symptoms of schizophrenia. Pt admitted for AMS, acute urinary retention and Acute respiratory failure Pt seen and examined See this morning H and P for full plan Objective Data Vital Signs Vital Signs: Vital Signs - 24 hr 10/03/23 21:22 10/03/23 23:23 10/04/23 01:43 Temperature Pulse Rate 79 83 94 Respiratory Rate 23 H 23 H Blood Pressure 122/76 112/72 Pulse Oximetry 94 96 Oxygen Delivery Room Air Fraction of Inspired Oxygen 10/04/23 03:35 10/03/23 23:29 10/03/23 23:30 Temperature Pulse Rate 80 92 81 Respiratory Rate 15 22 H 23 H Blood Pressure 110/63 112/72 112/70 Pulse Oximetry 99 97 99 Oxygen Delivery Fraction of Inspired Oxygen 10/03/23 23:31 10/03/23 23:45 10/03/23 23:46 Temperature Pulse Rate 83 96 90 Respiratory Rate 22 H 25 H 19 Blood Pressure 117/65 Pulse Oximetry 98 100 100 Oxygen Delivery Fraction of Inspired Oxygen 10/04/23 00:25 10/04/23 00:31 10/04/23 00:45 Temperature Pulse Rate 92 87 84 Respiratory Rate 20 23 H 20 Blood Pressure 114/58 L Pulse Oximetry Oxygen Delivery Fraction of Inspired Oxygen 10/04/23 00:46 10/04/23 01:35 10/04/23 01:45 Temperature Pulse Rate 96 85 78 Respiratory Rate 25 H 28 H 21 H Blood Pressure 112/72 Pulse Oximetry 100 100 Oxygen Delivery Fraction of Inspired Oxygen 10/04/23 01:46 10/04/23 02:00 10/04/23 02:01 Temperature Pulse Rate 81 86 92 Respiratory Rate 22 H 24 H 22 H Blood Pressure 121/62 Pulse Oximetry 100 Oxygen Delivery Fraction of Inspired Oxygen 10/04/23 02:25 10/04/23 02:46 10/04/23 03:00 Temperature Pulse Rate 83 86 80 Respiratory Rate 18 23 H 23 H Blood Pressure 111/62 Pulse Oximetry 100 100 Oxygen Delivery Fraction of Inspired Oxygen 10/04/23 03:01 10/04/23 03:15 10/04/23 03:16 Temperature Pulse Rate 80 76 78 Respiratory Rate 20 22 H 22 H Blood Pressure 115/75 Pulse Oximetry 100 Oxygen Delivery Fraction of Inspired Oxygen 10/04/23 03:30 10/04/23 03:31 10/04/23 04:04 Temperature Pulse Rate 80 78 84 Respiratory Rate 23 H 22 H 21 H Blood Pressure 110/63 Pulse Oximetry 100 Oxygen Delivery Fraction of Inspired Oxygen 10/04/23 04:35 10/04/23 04:45 10/04/23 05:00 Temperature Pulse Rate 91 74 75 Respiratory Rate 24 H 15 21 H Blood Pressure 102/63 Pulse Oximetry 100 96 100 Oxygen Delivery Fraction of Inspired Oxygen 10/04/23 05:01 10/04/23 06:04 10/04/23 06:19 Temperature 36.6 C Pulse Rate 76 82 73 Respiratory Rate 19 24 H 20 Blood Pressure 100/57 L Pulse Oximetry 100 95 Oxygen Delivery Fraction of Inspired Oxygen 10/04/23 06:27 10/04/23 08:00 10/04/23 08:53 Temperature Pulse Rate 73 63 Respiratory Rate 18 20 Blood Pressure 106/68 Pulse Oximetry 97 99 Oxygen Delivery Room Air Fraction of Inspired Oxygen 21 10/04/23 10:00 10/04/23 08:05 10/04/23 12:00 Temperature Pulse Rate 55 L 62 76 Respiratory Rate 17 19 18 Blood Pressure 101/73 127/81 Pulse Oximetry 100 98 100 Oxygen Delivery Room Air Fraction of Inspired Oxygen 10/04/23 12:06 10/04/23 12:06 10/04/23 12:00 Temperature 36.2 C L Pulse Rate 82 82 82 Respiratory Rate 22 H 22 H Blood Pressure 127/81 Pulse Oximetry 100 100 Oxygen Delivery Room Air Fraction of Inspired Oxygen 10/04/23 10:00 10/04/23 08:05 10/04/23 14:00 Temperature Pulse Rate 55 L 62 75 Respiratory Rate Blood Pressure Pulse Oximetry Oxygen Delivery Fraction of In
[2023-10-05] VITALS (10 sets, daily range): BP systolic 111–124; BP diastolic 53–75; PULSE 72–90; RESP 16–25; TEMP 36.9–37.4; O2SAT 95–100
[2023-10-05 04:51] LABS: Hematocrit 44.6 % (42.0-52.0); Hemoglobin 14.2 g/dL (14.0-18.0); Mean Corpuscular HGB Conc 31.8 g/dl (32-36); Mean Corpuscular Hemoglobin 31.4 pg (26-34); Mean Corpuscular Volume 98.7 fl (80-100); Mean Platelet Volume 10.5 fl (7.4-10.4); Platelet Count Result 205 k/mm3 (150-375); Red Blood Count 4.52 M/mm3 (4.6-6.20); Red Cell Distribution Width 13.3 % (11.5-14.5); White Blood Count 8.6 K/mm3 (4.5-10.0)
[2023-10-05 05:11] LABS: Alanine Aminotransferase 51 U/L (6-50); Alkaline Phosphatase 55 U/L (38-126); Anion Gap 10 mmol/L (8-16); Aspartate Amino Transferase 43 U/L (17-59); Bilirubin,Total 0.9 mg/dL (0.2-1.3); Blood Urea Nitrogen 15 mg/dL (9-20); Calcium 8.4 mg/dL (8.4-10.2); Carbon Dioxide 25 mmol/L (22-30); Chloride 108 mmol/L (98-107); Estimated CRCL calculation 56 ml/min; Estimated Glomerular Filt Rate 49; Glucose 138 mg/dL (65-110); Magnesium 2.4 mg/dL (1.6-2.3); Potassium 4.1 mmol/L (3.4-5.0); Sodium 143 mmol/L (137-145)
[2023-10-05 05:21] LABS: Creatine Kinase 2505 U/L (55-170)
[2023-10-05] MEDS: KCL 20 MEQ/D5/0.45% SOD CHL 1,000 ML 150 ML IV CONT (05:59)
[2023-10-05] MEDS: SODIUM CHLORIDE 0.45% 1,000 ML 150 ML IV CONT ×3 (08:33→22:12)
[2023-10-05] MEDS: ENOXAPARIN 40 MG/0.4 ML SYRINGE SUB-Q (08:34)
--- NOTE | 2023-10-05 09:06 | WPDINTPN ---
Progress Note: A&P Assessment and Plan (1) Respiratory failure: Code(s): J96.90 - Respiratory failure, unspecified, unspecified whether with hypoxia or hypercapnia Status: Acute Assessment and Plan: 10/04 As above mention during my initial assessment patient is completely obtunded. His end-tidal CO2 was acceptable I obtained an ABG. Which showed mild respiratory acidosis. On exam patient had no cough or gag reflex. I discontinued his Precedex infusion. I gave patient 2 doses of Romazicon without any significant improvement. His saturations were adequate on room air. I decided to intubate the patient for airway protection patient was not protecting his airway. Patient was set up and prepared for intubation and when I inserted the glide scope to intubate the patient, he started coughing and woke up and became more responsive and started making grunting noises and moaning. At that point I decided not to proceed with intubation since patient was now responsive and able to protect his airway. Will continue with end-tidal CO2 monitoring and oxygen supplementation as needed. Hopefully with time his Ativan will wear off. Chest X will remain on hold at this time 10/05 alert and awake, on room air (2) Acute urinary retention: Code(s): R33.8 - Other retention of urine Status: Acute Assessment and Plan: Linda has been placed (3) Polysubstance overdose: Qualifiers: Encounter type: initial encounter Injury intent: undetermined intent Qualified Code(s): T50.904A - Poisoning by unspecified drugs, medicaments and biological substances, undetermined, initial encounter Code(s): T50.901A - Poisoning by unspecified drugs, medicaments and biological substances, accidental (unintentional), initial encounter Status: Acute Assessment and Plan: Urine drug screen positive for PCP and benzodiazepine. Continue supportive management Patient denies using any drugs prior to admission denies any suicidal homicidal ideations attempt (4) Encephalopathy: Code(s): G93.40 - Encephalopathy, unspecified Status: Acute Assessment and Plan: Toxic metabolic encephalopathy which appears to have resolved as patient is now AO x3 Continue to hold sedatives at this time Head CT was negative ABG reviewed on admission (5) Rhabdomyolysis: Qualifiers: Rhabdomyolysis type: non-traumatic Qualified Code(s): M62.82 - Rhabdomyolysis Code(s): M62.82 - Rhabdomyolysis Status: Acute Assessment and Plan: IV fluids ordered which will be continued Monitor urine output electrolytes and creatinine Monitor CK (6) Electrolyte abnormality: Code(s): E87.8 - Other disorders of electrolyte and fluid balance, not elsewhere classified Status: Acute Assessment and Plan: Improvement in hypernatremia and hypokalemia with IV fluids (7) Acute kidney injury: Code(s): N17.9 - Acute kidney failure, unspecified Status: Acute Assessment and Plan: Prerenal versus secondary to urinary retention versus rhabdomyolysis Continue IV fluids Check urine sodium and creatinine Check renal ultrasound Monitor urine output electrolytes and creatinine Plan DVT prophylaxis -Lovenox Nutrition -NPO at this time Code Status - Full Code Will discuss and confirm with his mother regarding his home medications before resuming them. Transfer out of ICU today Subjective Date/time seen: 10/05/23 Patient much more awake this morning. This morning he denies any complaints. Patient is slow to respond and has dysarthria. Overnight he has tolerated p.o. diet and urine output is on the lower side. His vital signs has remained stable and he is on room air. All other systems were reviewed and were negative. He is in sinus rhythm stable vital signs. This morning when I spoke to patient he denies using any drugs prior to coming to the hospital. States he does not smoke
--- NOTE | 2023-10-05 11:31 | PC.NURSE ---
Telephone report received from Cecilia STICKER OPERATOR.
--- NOTE | 2023-10-05 12:31 | PC.NURSE ---
Transferred to room 315-1 per hospital bed. No complaints voiced.
--- NOTE | 2023-10-05 12:32 | PC.NURSE ---
Patient transferred to [facility]. Report given to CINDY Gill. All belongings taken with patient.
--- NOTE | 2023-10-05 14:20 | PM.IMPN ---
Progress Note: A&P Assessment and Plan (1) Electrolyte abnormality: Code(s): E87.8 - Other disorders of electrolyte and fluid balance, not elsewhere classified Status: Acute Assessment and Plan: follows labs in hospital (2) Respiratory failure: Code(s): J96.90 - Respiratory failure, unspecified, unspecified whether with hypoxia or hypercapnia Status: Acute Assessment and Plan: Pt did not get intubated woke up on prn oxygen (3) Encephalopathy: Code(s): G93.40 - Encephalopathy, unspecified Status: Acute Assessment and Plan: Toxic metabolic encephalopathy which appears to have resolved Pt is talking and holding conversation Head CT was negative (4) 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 Continue supportive management Patient denies using any drugs prior to admission denies any suicidal homicidal ideations attempt (7) Rhabdomyolysis: Qualifiers: Rhabdomyolysis type: non-traumatic Qualified Code(s): M62.82 - Rhabdomyolysis Code(s): M62.82 - Rhabdomyolysis Status: Acute Assessment and Plan: IV fluids ordered which will be continued Monitor urine output electrolytes and creatinine Monitor CK Subjective Date/time seen: 10/05/23 14:20 Interval history: 27-year-old male with a known past medical history of schizophrenia, and alcohol uses well as polysubstance use to self medicate for schizophrenia who was brought in to the ER via EMS when his mother found him unresponsive in the basement.? The patient has in the past ordered synthetic drugs off the Internet and has used street drugs to treat his symptoms of schizophrenia. Pt admitted for AMS, acute urinary retention and Acute respiratory failure, rhabdomyolysis Pt did not get intubated pt woke up doing intubation Pt is doing better can be transferred to medical floor Review of Systems Review of Systems: Pt feels thirsty and looks dry Constitutional: Comments: Dry mucous membranes tongue and lips Exam Const: General: cooperative, healthy appearing and overweight; No in distress Nutritional Appearance: overweight Orientation/consciousness: oriented to person HENMT: Head: normal to inspection Resp: Effort & Inspection: no respiratory distress Auscultation: no rhonchi and no wheezes Cardio: Rate: regular rate Rhythm: regular rhythm GI: Inspection: normal to inspection GI Palp: No abdominal tenderness, No Guarding due to palpation present (GI) and No Hepatomegaly present Auscultation: normal bowel sounds Neuro: General: oriented to person Objective Data Vital Signs Vital Signs: Vital Signs - 24 hr 10/04/23 16:00 10/04/23 16:00 10/04/23 16:00 Temperature 36.8 C Pulse Rate 77 77 77 Respiratory Rate 25 H 25 H Blood Pressure 112/68 Pulse Oximetry 100 100 Oxygen Delivery Room Air 10/04/23 16:00 10/04/23 18:00 10/04/23 18:00 Temperature Pulse Rate 81 83 83 Respiratory Rate 22 H 14 Blood Pressure 112/68 115/69 Pulse Oximetry 100 99 Oxygen Delivery 10/04/23 20:00 10/04/23 22:00 10/05/23 00:00 Temperature Pulse Rate 82 78 75 Respiratory Rate Blood Pressure Pulse Oximetry Oxygen Delivery 10/05/23 02:00 10/04/23 20:00 10/04/23 22:00 Temperature
--- NOTE | 2023-10-05 15:10 | PC.NURSE ---
Bed alarming. Attempting to get out of bed unassisted. Impulsive. Requested Clonazepam for anxiety.
[2023-10-05] MEDS: clonazePAM (*CRX) 0.5 MG TABLET 1 MG PO (15:11)
--- NOTE | 2023-10-05 15:54 | PC.NURSE ---
Relocated to room 333 for safety. Bed alarm activated.
[2023-10-06 06:00] VITALS: BP 114/70; PULSE 87; RESP 20; TEMP 36.8; O2SAT 98
[2023-10-06 07:04] LABS: Hematocrit 40.2 % (42.0-52.0); Hemoglobin 13.4 g/dL (14.0-18.0); Mean Corpuscular HGB Conc 33.3 g/dl (32-36); Mean Corpuscular Hemoglobin 32.3 pg (26-34); Mean Corpuscular Volume 96.9 fl (80-100); Mean Platelet Volume 10.7 fl (7.4-10.4); Platelet Count Result 207 k/mm3 (150-375); Red Blood Count 4.15 M/mm3 (4.6-6.20); Red Cell Distribution Width 13.2 % (11.5-14.5); White Blood Count 5.3 K/mm3 (4.5-10.0)
[2023-10-06 07:14] LABS: Alanine Aminotransferase 48 U/L (6-50); Albumin Level 3.4 g/dL (3.5-5.1); Alkaline Phosphatase 56 U/L (38-126); Anion Gap 9 mmol/L (8-16); Aspartate Amino Transferase 32 U/L (17-59); Bilirubin,Total 0.4 mg/dL (0.2-1.3); Blood Urea Nitrogen 8 mg/dL (9-20); Calcium 8.2 mg/dL (8.4-10.2); Carbon Dioxide 24 mmol/L (22-30); Chloride 109 mmol/L (98-107); Creatine Kinase 1251 U/L (55-170); Estimated CRCL calculation 67 ml/min; Estimated Glomerular Filt Rate > 60; Glucose 100 mg/dL (65-110); Potassium 3.6 mmol/L (3.4-5.0); Sodium 142 mmol/L (137-145)
[2023-10-06] MEDS: SODIUM CHLORIDE 0.45% 1,000 ML 150 ML IV CONT ×2 (07:39→14:59)
[2023-10-06] MEDS: ENOXAPARIN 40 MG/0.4 ML SYRINGE SUB-Q (08:22)
[2023-10-06] MEDS: VENLAFAXINE HCL XR 75 MG CAP.ER.24H 150 MG PO (08:22)
[2023-10-06] MEDS: clonazePAM (*CRX) 0.5 MG TABLET 1 MG PO (08:28)
[2023-10-06 14:00] VITALS: BP 117/73; PULSE 71; RESP 18; TEMP 36.8; O2SAT 96
--- NOTE | 2023-10-06 15:52 | PM.IMPN ---
Progress Note: A&P Assessment and Plan (1) Electrolyte abnormality: Code(s): E87.8 - Other disorders of electrolyte and fluid balance, not elsewhere classified Status: Acute Assessment and Plan: follows labs in hospital (2) Respiratory failure: Code(s): J96.90 - Respiratory failure, unspecified, unspecified whether with hypoxia or hypercapnia Status: Acute Assessment and Plan: Pt did not get intubated woke up on prn oxygen (3) Encephalopathy: Code(s): G93.40 - Encephalopathy, unspecified Status: Acute Assessment and Plan: Toxic metabolic encephalopathy which appears to have resolved Pt is talking and holding conversation Head CT was negative (4) 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 Continue supportive management Patient denies using any drugs prior to admission denies any suicidal homicidal ideations attempt (7) Rhabdomyolysis: Qualifiers: Rhabdomyolysis type: non-traumatic Qualified Code(s): M62.82 - Rhabdomyolysis Code(s): M62.82 - Rhabdomyolysis Status: Acute Assessment and Plan: IV fluids ordered which will be continued Monitor urine output electrolytes and creatinine Monitor CK Plan 27-year-old male with a known past medical history of schizophrenia, and alcohol use well as polysubstance use to self medicate for schizophrenia who was brought in to the ER via EMS when his mother found him unresponsive in the basement.? The patient has in the past ordered synthetic drugs off the Internet and has used street drugs to treat his symptoms of schizophrenia. Patient was unresponsive on presentation however while performing procedures in the patient he became violent and required sedation with Ativan he was found to have urinary retention Linda catheter was placed. Point hard restraints were applied on admission despite Ativan administration patient's urine drug screen was positive for benzodiazepines and PCP. Suspected overdose intentional/accidental. Was placed on Precedex drip in the ICU. Flumazenil with no effect. Needs crisis team evaluation once medically stable. Rhabdomyolysis on IV fluid ALEKSANDRA mild improving Toxic metabolic encephalopathy CT head is negative History of schizophrenia on Focalin XR quetiapine and venlafaxine. History of alcohol abuse DVT prophylaxis Lovenox Code status full code Subjective Date/time seen: 10/06/23 15:52 Interval history: 27-year-old male with a known past medical history of schizophrenia, and alcohol use well as polysubstance use to self medicate for schizophrenia who was brought in to the ER via EMS when his mother found him unresponsive in the basement.? The patient has in the past ordered synthetic drugs off the Internet and has used street drugs to treat his symptoms of schizophrenia. Patient was unresponsive on presentation however while performing procedures in the patient he became violent and required sedation with Ativan he was found to have urinary retention Linda catheter was placed. Point hard restraints were applied on admission despite Ativan administration patient's urine drug screen was positive for benzodiazepines and PCP. Suspected overdose intentional/accidental. Was placed on Precedex drip in the ICU. Flumazenil with no ef
[2023-10-06 20:00] VITALS: PULSE 71; RESP 18; O2SAT 96
[2023-10-06 21:28] VITALS: BP 119/80; PULSE 70; RESP 14; TEMP 36.6; O2SAT 98
[2023-10-06 23:16] VITALS: O2SAT 96
--- NOTE | 2023-10-07 04:23 | PC.NURSE ---
patient unhooked his ivf's and refuses to have fluids resumed.
[2023-10-07 05:57] VITALS: BP 120/73; PULSE 79; RESP 16; TEMP 36.7; O2SAT 100
[2023-10-07 07:03] LABS: Hematocrit 41.8 % (42.0-52.0); Hemoglobin 13.2 g/dL (14.0-18.0); Mean Corpuscular HGB Conc 31.6 g/dl (32-36); Mean Corpuscular Volume 98.1 fl (80-100); Mean Platelet Volume 10.5 fl (7.4-10.4); Platelet Count Result 204 k/mm3 (150-375); Red Blood Count 4.26 M/mm3 (4.6-6.20); White Blood Count 4.6 K/mm3 (4.5-10.0)
[2023-10-07 07:11] LABS: Alanine Aminotransferase 47 U/L (6-50); Albumin Level 3.8 g/dL (3.5-5.1); Alkaline Phosphatase 58 U/L (38-126); Anion Gap 11 mmol/L (8-16); Aspartate Amino Transferase 26 U/L (17-59); Bilirubin,Total 0.5 mg/dL (0.2-1.3); Blood Urea Nitrogen 7 mg/dL (9-20); Calcium 8.5 mg/dL (8.4-10.2); Carbon Dioxide 27 mmol/L (22-30); Chloride 103 mmol/L (98-107); Creatine Kinase 824 U/L (55-170); Estimated CRCL calculation 85 ml/min; Estimated Glomerular Filt Rate > 60; Glucose 94 mg/dL (65-110); Magnesium 1.8 mg/dL (1.6-2.3); Potassium 3.7 mmol/L (3.4-5.0); Sodium 141 mmol/L (137-145)
[2023-10-07] MEDS: clonazePAM (*CRX) 0.5 MG TABLET 1 MG PO (08:54)
[2023-10-07] MEDS: VENLAFAXINE HCL XR 75 MG CAP.ER.24H 150 MG PO (08:54)
[2023-10-07 14:00] VITALS: BP 118/76; PULSE 71; RESP 18; TEMP 36.7; O2SAT 99
--- NOTE | 2023-10-07 14:56 | PM.IMPN ---
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, uncomplicated Status: Acute (5) Acute urinary retention: Code(s): R33.8 - Other retention of urine Status: Acute (6) Polysubstance overdose: Qualifiers: Encounter type: initial encounter Injury intent: undetermined intent Qualified Code(s): T50.904A - Poisoning by unspecified drugs, medicaments and biological substances, undetermined, initial encounter Code(s): T50.901A - Poisoning by unspecified drugs, medicaments and biological substances, accidental (unintentional), initial encounter Status: Acute (7) Rhabdomyolysis: Qualifiers: Rhabdomyolysis type: non-traumatic Qualified Code(s): M62.82 - Rhabdomyolysis Code(s): M62.82 - Rhabdomyolysis Status: Acute Plan 27-year-old male with a known past medical history of schizophrenia, and alcohol use well as polysubstance use to self medicate for schizophrenia who was brought in to the ER via EMS when his mother found him unresponsive in the basement.? The patient has in the past ordered synthetic drugs off the Internet and has used street drugs to treat his symptoms of schizophrenia. Patient was unresponsive on presentation however while performing procedures in the patient he became violent and required sedation with Ativan he was found to have urinary retention Linda catheter was placed. Point hard restraints were applied on admission despite Ativan administration patient's urine drug screen was positive for benzodiazepines and PCP. Suspected overdose intentional/accidental. Was placed on Precedex drip in the ICU. Flumazenil with no effect. Needs crisis team evaluation with his history of drug use overdose and underlying psychiatric illness Rhabdomyolysis on IV fluid ALEKSANDRA mild improving resolved Toxic metabolic encephalopathy CT head is negative History of schizophrenia on Focalin XR quetiapine and venlafaxine. History of alcohol abuse DVT prophylaxis Lovenox Code status full code medically cleared. Crisis team to evaluate Subjective Date/time seen: 10/07/23 14:56 Interval history: 27-year-old male with a known past medical history of schizophrenia, and alcohol use well as polysubstance use to self medicate for schizophrenia who was brought in to the ER via EMS when his mother found him unresponsive in the basement.? The patient has in the past ordered synthetic drugs off the Internet and has used street drugs to treat his symptoms of schizophrenia. Patient was unresponsive on presentation however while performing procedures in the patient he became violent and required sedation with Ativan he was found to have urinary retention Linda catheter was placed. Point hard restraints were applied on admission despite Ativan administration patient's urine drug screen was positive for benzodiazepines and PCP. Suspected overdose intentional/accidental. Was placed on Precedex drip in the ICU. Flumazenil with no effect. Needs crisis team evaluation once medically stable. Rhabdomyolysis on IV fluid ALEKSANDRA mild improving Toxic metabolic encephalopathy CT head is negative History of schizophrenia on Focalin XR quetiapine and venlafaxine. History of alcohol abuse DVT prophylaxis Code status full code 10/07/2023: no overnight events no fever chills no shortness of breath no chest pain Review of Systems Review of Systems: All systems reviewed & are unremarkable except as noted in HPI and below Exam Narrative: General:
[2023-10-07 16:06] LABS: SARS-CoV-2 RNA PCR Negative (Negative)
[2023-10-07 21:59] VITALS: BP 116/75; PULSE 73; RESP 20; TEMP 36.6; O2SAT 99
[2023-10-08 06:00] VITALS: BP 124/73; PULSE 86; RESP 20; TEMP 37.1; O2SAT 100
[2023-10-08 06:44] LABS: Hematocrit 43.7 % (42.0-52.0); Hemoglobin 14.4 g/dL (14.0-18.0); Mean Corpuscular Hemoglobin 31.9 pg (26-34); Mean Corpuscular Volume 96.9 fl (80-100); Mean Platelet Volume 10.4 fl (7.4-10.4); Platelet Count Result 206 k/mm3 (150-375); Red Blood Count 4.51 M/mm3 (4.6-6.20); Red Cell Distribution Width 12.6 % (11.5-14.5); White Blood Count 4.7 K/mm3 (4.5-10.0)
[2023-10-08 07:00] LABS: Alanine Aminotransferase 46 U/L (6-50); Albumin Level 4.2 g/dL (3.5-5.1); Alkaline Phosphatase 60 U/L (38-126); Anion Gap 9 mmol/L (8-16); Aspartate Amino Transferase 21 U/L (17-59); Bilirubin,Total 0.5 mg/dL (0.2-1.3); Blood Urea Nitrogen 9 mg/dL (9-20); Calcium 8.8 mg/dL (8.4-10.2); Carbon Dioxide 29 mmol/L (22-30); Chloride 101 mmol/L (98-107); Creatine Kinase 368 U/L (55-170); Estimated CRCL calculation 92 ml/min; Estimated Glomerular Filt Rate > 60; Glucose 101 mg/dL (65-110); Magnesium 1.7 mg/dL (1.6-2.3); Potassium 3.9 mmol/L (3.4-5.0); Sodium 139 mmol/L (137-145)
[2023-10-08 08:00] VITALS: O2SAT 100
[2023-10-08] MEDS: clonazePAM (*CRX) 0.5 MG TABLET 1 MG PO (08:08)
[2023-10-08] MEDS: VENLAFAXINE HCL XR 75 MG CAP.ER.24H 150 MG PO (08:08)
--- NOTE | 2023-10-08 13:40 | PM.DS ---
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, uncomplicated Status: Acute (5) Acute urinary retention: Code(s): R33.8 - Other retention of urine Status: Acute (6) Polysubstance overdose: Qualifiers: Encounter type: initial encounter Injury intent: undetermined intent Qualified Code(s): T50.904A - Poisoning by unspecified drugs, medicaments and biological substances, undetermined, initial encounter Code(s): T50.901A - Poisoning by unspecified drugs, medicaments and biological substances, accidental (unintentional), initial encounter Status: Acute (7) Rhabdomyolysis: Qualifiers: Rhabdomyolysis type: non-traumatic Qualified Code(s): M62.82 - Rhabdomyolysis Code(s): M62.82 - Rhabdomyolysis Status: Acute DS: Summary Hospital Course Hospital Course: 27-year-old male with a known past medical history of schizophrenia, and alcohol use well as polysubstance use to self medicate for schizophrenia who was brought in to the ER via EMS when his mother found him unresponsive in the basement.? The patient has in the past ordered synthetic drugs off the Internet and has used street drugs to treat his symptoms of schizophrenia.? Patient was unresponsive on presentation however while performing procedures in the patient he became violent and required sedation with Ativan. He was found to have urinary retention Linda catheter was placed.? Hard restraints were applied on admission despite Ativan administration patient's urine drug screen was positive for benzodiazepines and PCP.? Suspected overdose intentional/accidental.? Was placed on Precedex drip in the ICU.? Treatment with flumazenil with no effect.? Also had Rhabdomyolysis on IV fluid which continue to improve with IV hydration ALEKSANDRA resolved with treatment Toxic metabolic encephalopathy CT head is negative likely due to drug overdose. History of schizophrenia on Focalin XR quetiapine and venlafaxine. History of alcohol abuse DVT prophylaxis Lovenox Code status full code Crisis team evaluated the patient and cleared for discharge. He will continue to follow-up with his psychiatrist outpatient basis. Time Spent with Patient Time attestation: Total time spent providing and/or coordinating discharge services: 35 Exam Narrative: General: Pt is alert awake and in NAD Lungs/Chest: Trachea central Clear BS B/L, No crackles or wheezing. Cardiac: RRR. Normal S1 S2. No murmurs Circulation: Pedal pulses are intact and symmetrical. Abdomen: Normal bowel sounds.. Soft. NT. ND. Extremities: No clubbing, cyanosis or edema. Warm Neurologic: AO x3, moves all 4 extremities pERRL Skin: No Rash HEENT: Dry oral mucosa DS: Data Data Completed and Pending Labs on day of discharge: Labs from last 24 hours 10/08/23 10/07/23 06:15 15:23 WBC 4.7 RBC 4.51 L Hgb 14.4 Hct 43.7 MCV 96.9 MCH 31.9 MCHC 33.0 RDW 12.6 Plt Count 206 MPV 10.4 Sodium 139 Potassium 3.9 Chloride 101 Carbon Dioxide 29 Anion Gap 9 BUN 9 Creatinine 1.00 Estim Creat Clear Calc 92 Estimated GFR > 60 Glucose 101 Calcium 8.8 Magnesium 1.7 Total Bilirubin 0.5 AST 21 ALT 46 Alkaline Phosphatase 60 Total Creatine Kinase 368 H Total Protein 8.0 Albumin 4.2 SARS-CoV-2 RNA (RT-PCR) Negative Imaging Radiologist's impression: ITS Impressions
[2023-10-11 08:45] LABS: Glucose Point of Care 161 mg/dl (65-105)
== END 2023-10-08 17:06 | disposition home or self-care (01) | DRG 812 ==
LOC: ANHED 10-04 04:51 → ANHICU 10-04 05:41 → ANH3MEDSUR 10-05 13:07
PROVIDERS: Internal Medicine; Admitting Provider Internal Medicine; Emergency Provider Emergency Medicine; Visit Provider Internal Medicine
DX: T50.904A Poisoning by unspecified drugs, medicaments and biological substances, undetermined, initial encounter; G92.8 Other toxic encephalopathy; M62.82 Rhabdomyolysis; R33.9 Retention of urine, unspecified; E86.0 Dehydration; E87.8 Other disorders of electrolyte and fluid balance, not elsewhere classified; F10.90 Alcohol use, unspecified, uncomplicated; F20.9 Schizophrenia, unspecified; F41.8 Other specified anxiety disorders; F16.10 Hallucinogen abuse, uncomplicated; R40.4 Transient alteration of awareness; R47.1 Dysarthria and anarthria; Z20.822 Contact with and (suspected) exposure to COVID-19
CPT/HCPCS: 36415; 36600; 70450; 76775; 80048; 80053; 80307; 81001; 82375; 82550; 82805; 82948; 83050; 83735; 85025; 85027; 87086; 87635; 93005; 96374; 99285; A9270; J1650; J2060; J3480; J7030

== ENCOUNTER 2023-10-29 14:10 | Emergency (ER) | payer OTHER, SELFPAY ==
[2023-10-29] VITALS (14 sets, daily range): BP systolic 102–143; BP diastolic 55–94; PULSE 83–101; RESP 15–22; TEMP 36.4; O2SAT 99–100
--- NOTE | ~2023-10-29 | CT_ITS ---
EXAMINATION: CT brain wo con DATE: 10/29/2023 15:12 INDICATION: mental status . TECHNIQUE: Computed tomography (CT) of the head was performed without intravenous contrast. The mA wa s adjusted according to patient size. Iterative reconstruction technique was employed. The dose-lengt h product was 681.00 mGy-cm. COMPARISON: 10/04/2023. FINDINGS: No acute intracranial hemorrhage or extra-axial fluid collection. No hydrocephalus, mass, or herniation. No acute ischemic infarct. Unremarkable dural venous sinus attenuation. No acute osseous abnormality. The aerated spaces are clear. IMPRESSION: No acute intracranial process. This patient has had [address] examinations since September 01, 2021, strongly consider MRI of t he brain whenever possible for future examination. Reviewed, dictated and finalized at location [facility] [employer] IMPRESSION: No acute intracranial process. This patient has had [address] examinations since September 01, 2021, stro ngly consider MRI of the brain whenever possible for future examination.
--- NOTE | ~2023-10-29 | CT_ITS ---
EXAMINATION: CT brain wo con DATE: 10/29/2023 18:57 INDICATION: Interval head trauma. TECHNIQUE: Computed tomography (CT) of the head was performed without intravenous contrast. The mA wa s adjusted according to patient size. Iterative reconstruction technique was employed. The dose-lengt h product was 605.33 mGy-cm. COMPARISON: Same date at 3:07 PM. FINDINGS: No acute intracranial hemorrhage or extra-axial fluid collection. No hydrocephalus, mass, or herniation. No acute ischemic infarct. Unremarkable dural venous sinus attenuation. No acute osseous abnormality. The aerated spaces are clear. IMPRESSION: No acute intracranial process. This is the ninth normal head CT on this patient since September 01, 2021, consider MRI of the brain wh enever possible for future examinations. Reviewed, dictated and finalized at location [facility] [employer] IMPRESSION: No acute intracranial process. This is the ninth normal head CT on this patient since September 01, 2021, consid er MRI of the brain whenever possible for future examinations.
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
--- NOTE | 2023-10-29 14:52 | ECG_ITS ---
Measurements Intervals [place] Rate: 104 P: 42 NV: 138 QRS: 64 QRSD: 106 T: 37 QT: 373 QTc: 492 Interpretive Statements SINUS TACHYCARDIA NORMAL ECG COMPARED TO ECG 10/04/2023 00:03:29 SINUS TACHYCARDIA NOW PRESENT Electronically Signed On 10-30-2023 12:43:32 INFUSION NURSE by Randell Vivar M.D.
[2023-10-29 15:32] LABS: Basophils Percent Auto 0.3 % (0.2-1.2); Eosinophils Absolute Auto 0.3 K/mm3 (0-0.3); Eosinophils Percent Auto 3.2 % (0-4.4); Hematocrit 41.9 % (42.0-52.0); Hemoglobin 14.3 g/dL (14.0-18.0); Immature Granulocyte Absolute 0.04 K/mm3 (0.00-0.031); Immature Granulocyte Percent A 0.4 % (0-0.5); Lymphocytes Absolute Auto 0.79 K/mm3 (0.9-3.2); Lymphocytes Percent Auto 8.1 % (18.3-44.2); Mean Corpuscular HGB Conc 34.1 g/dl (32-36); Mean Corpuscular Hemoglobin 31.6 pg (26-34); Mean Corpuscular Volume 92.5 fl (80-100); Mean Platelet Volume 10.1 fl (7.4-10.4); Monocytes Absolute Auto 1.1 K/mm3 (0.1-0.6); Monocytes Percent Auto 11.3 % (2.6-8.5); Neutrophils Absolute Auto 7.5 K/mm3 (1.3-6.7); Neutrophils Percent Auto 76.7 % (45.5-73.1); Platelet Count Result 293 k/mm3 (150-375); Red Blood Count 4.53 M/mm3 (4.6-6.20); Red Cell Distribution Width 12.6 % (11.5-14.5); White Blood Count 9.8 K/mm3 (4.5-10.0)
[2023-10-29 15:43] LABS: Acetaminophen < 10 ug/mL (10-30); Alanine Aminotransferase 40 U/L (6-50); Albumin Level 4.7 g/dL (3.5-5.1); Alkaline Phosphatase 80 U/L (38-126); Ammonia < 9 umol/L (9-30); Anion Gap 20 mmol/L (8-16); Aspartate Amino Transferase 38 U/L (17-59); Bilirubin,Total 0.7 mg/dL (0.2-1.3); Blood Urea Nitrogen 12 mg/dL (9-20); Calcium 8.9 mg/dL (8.4-10.2); Carbon Dioxide 16 mmol/L (22-30); Chloride 100 mmol/L (98-107); Creatine Kinase 741 U/L (55-170); Estimated Glomerular Filt Rate > 60; Ethanol 187 mg/dL (<10); Glucose 70 mg/dL (65-110); Potassium 3.6 mmol/L (3.4-5.0); Salicylate < 1.0 mg/dL (2-20); Sodium 136 mmol/L (137-145)
[2023-10-29 15:46] LABS: Glucose Point of Care 77 mg/dl (65-105)
[2023-10-29] MEDS: SODIUM CHLORIDE 0.9% IV 1,000 ML 999 ML IV CONT ×2 (15:47→19:16)
[2023-10-29 15:48] LABS: Appearance Urine Clear (Clear); Bilirubin Urine Negative (Negative); Blood Urine Negative (Negative); Color Urine Yellow (Yellow); Glucose Urine UA Negative (Negative); Ketones Urine 2+ mg/dL (Negative); Leukocyte Esterase Ur Negative LEU/UL (Negative); Nitrate Urine Negative (Negative); Protein Urine Negative (Negative); Specific Grav Ur 1.018 (1.001-1.035); Urobilinogen Urine 0.2 mg/dL (<2.0); pH Urine 5.5 (5.0-9.0)
[2023-10-29 15:54] LABS: Troponin I < 0.012 ng/mL (0.000-0.034)
[2023-10-29 16:02] LABS: Amphetamine Screen Urine Negative (Negative); Barbiturate Screen Urine Negative (Negative); Benzodiazepines Screen Urine Positive (Negative); Cannabinoid Screen Urine Positive (Negative); Cocaine Screen Urine Negative (Negative); Methadone Screen Urine Negative (Negative); Opiate Screen Urine Negative (Negative); Phencyclidine Screen Urine Positive (Negative)
[2023-10-29 16:13] LABS: Thyroid Stimulating Hormone 0.602 uIU/mL (0.465-4.680)
[2023-10-29 16:19] LABS: Add Urine Microscopic? NO
--- NOTE | 2023-10-29 17:21 | PC.NURSE ---
Patient more awake at this time. Patient not able to answer questions and speech is not legible.
[2023-10-29 18:30] LABS: Reflex Lactic Acid Yes or No Add Lactic
--- NOTE | 2023-10-29 19:59 | ECG_ITS ---
Measurements Intervals [place] Rate: 103 P: 74 DE: 145 QRS: 83 QRSD: 107 T: 69 QT: 368 QTc: 483 Interpretive Statements SINUS TACHYCARDIA OTHERWISE NORMAL ECG COMPARED TO ECG 10/29/2023 14:14:33 NO SIGNIFICANT CHANGES Electronically Signed On 10-31-2023 16:48:09 ECONOMETRICIAN by Randell Vivar M.D.
== END 2023-10-29 21:07 ==
PROVIDERS: Emergency Provider Student in an Organized Health Care Education/Training Program
DX: G93.40 Encephalopathy, unspecified (principal); F19.10 Other psychoactive substance abuse, uncomplicated; F10.920 Alcohol use, unspecified with intoxication, uncomplicated; Y90.6 Blood alcohol level of 120-199 mg/100 ml; S09.90XA Unspecified injury of head, initial encounter; F20.9 Schizophrenia, unspecified; F41.8 Other specified anxiety disorders; F17.210 Nicotine dependence, cigarettes, uncomplicated; Y35.813A Legal intervention involving manhandling, suspect injured, initial encounter; R00.0 Tachycardia, unspecified
CPT/HCPCS: 36415; 70450; 80053; 80307; 81003; 82140; 82550; 82948; 83605; 84443; 84484; 85025; 93005; 96360; 96361; 99284; J7030

== ENCOUNTER 2024-06-05 21:52 | Emergency (ER) | payer MEDICAID, SELFPAY ==
[2024-06-05 21:51] VITALS: BP 134/81; PULSE 113; RESP 18; TEMP 36.6; O2SAT 99
[2024-06-05 22:12] VITALS: RESP 19
[2024-06-05] MEDS: SODIUM CHLORIDE 0.9% IV 1,000 ML 999 ML IV CONT (22:14)
[2024-06-05 22:17] LABS: Basophils Percent Auto 0.5 % (0.2-1.2); Eosinophils Absolute Auto 0.3 K/mm3 (0-0.3); Eosinophils Percent Auto 3.2 % (0-4.4); Hematocrit 41.4 % (42.0-52.0); Hemoglobin 13.5 g/dL (14.0-18.0); Immature Granulocyte Absolute 0.15 K/mm3 (0.00-0.031); Immature Granulocyte Percent A 1.7 % (0-0.5); Lymphocytes Absolute Auto 1.44 K/mm3 (0.9-3.2); Lymphocytes Percent Auto 16.5 % (18.3-44.2); Mean Corpuscular HGB Conc 32.6 g/dl (32-36); Mean Corpuscular Hemoglobin 31.7 pg (26-34); Mean Corpuscular Volume 97.2 fl (80-100); Mean Platelet Volume 10.4 fl (7.4-10.4); Monocytes Percent Auto 11.1 % (2.6-8.5); Neutrophils Absolute Auto 5.8 K/mm3 (1.3-6.7); Platelet Count Result 248 k/mm3 (150-375); Red Blood Count 4.26 M/mm3 (4.6-6.20); Red Cell Distribution Width 13.5 % (11.5-14.5); White Blood Count 8.7 K/mm3 (4.5-10.0)
[2024-06-05 22:27] LABS: Alanine Aminotransferase 74 U/L (6-50); Albumin Level 4.8 g/dL (3.5-5.1); Alkaline Phosphatase 87 U/L (38-126); Anion Gap 12 mmol/L (4-12); Aspartate Amino Transferase 49 U/L (17-59); Bilirubin,Total 0.3 mg/dL (0.2-1.3); Blood Urea Nitrogen 16 mg/dL (9-20); Calcium 8.6 mg/dL (8.4-10.2); Carbon Dioxide 28 mmol/L (22-30); Chloride 99 mmol/L (98-107); Estimated CRCL calculation 123 ml/min; Estimated Glomerular Filt Rate > 60; Glucose 105 mg/dL (65-110); Potassium 4.1 mmol/L (3.4-5.0); Sodium 139 mmol/L (137-145)
--- NOTE | 2024-06-05 22:31 | ED.GENADULT ---
HPI - General Adult General Chief complaint: Overdose Stated complaint: Took Shrooms, axox2, paranoid Time Seen by Provider: 06/05/24 21:58 History of Present Illness HPI narrative: Patient 28-year-old gentleman who presents emergency department with chief complaint of tripping on strain. The patient reports that he took some strain to get high and tonight feels strange patient denies suicidal or homicidal ideation the patient reports he was just trying to get high Related Data Home Medications Medication Instructions Recorded Confirmed clonazepam 1 mg tablet 1 mg PO BID PRN Anxiety 10/14/22 10/04/23 gabapentin 600 mg tablet 600 mg PO TID 10/14/22 10/04/23 quetiapine 50 mg tablet 100 mg PO BID 10/14/22 10/04/23 Armando-600 With Vitamin D 1 tab-cap PO DAILY 10/04/23 10/04/23 lisdexamfetamine 30 mg capsule 30 mg PO DAILY 10/04/23 10/04/23 (Vyvanse) olanzapine 15 mg tablet 15 mg PO DAILY 10/04/23 10/04/23 venlafaxine 150 mg 150 mg PO DAILY 10/04/23 10/04/23 capsule,extended release 24 hr vitamin B complex 1 cap PO DAILY 10/04/23 10/04/23 Allergies Allergy/AdvReac Type Severity Reaction Status Date / Time No Known Allergies Allergy Mild Verified 09/24/21 02:58 Review of Systems Review of Systems: A 10 system review of systems was completed on the patient and is negative except for what is stated in the HPI. Nursing and ancillary documentation was reviewed. [facility] Past Medical History Medical History Depression with anxiety Schizophrenia Surgical History Surgical History No significant past surgical history Family History Family History Mother Anxiety Autism Father Asperger syndrome Bipolar affective disorder Other Breast cancer Grandparent Heart disease Mother Pollution of water potentially affecting patient's health Father Pollution of water potentially affecting patient's health Other Schizophrenia Social History Social History Social History: He lives with his mother and has been unemployed for at least 3 years. Code status: Full code. Surrogate decision maker: Mother Smoking status: Light tobacco smoker Tobacco type: cigarettes Second hand tobacco smoke exposure: No Additional smoking assessment comments: Once every few months Alcohol intake: current Drinks per week: 1 Alcohol use details: Occasional alcohol use in moderation. Substance use: current Substance use type: marijuana, hallucinogens, sedatives and inhalants Lack of Transportation: No Lack of Food: Sometimes True Current Housing: I Have Housing Concerned About Future Housing: No Difficulty Paying Gas/Electric Bills: YES Difficulty Paying for Meds: No Currently Unemployed: No Education: High School Diploma/GED Difficulty w/ Childcare or Family Care: No Living arrangements: with family Occupation/Education: unemployed Spiritual care concerns: No Exam Narrative: GENERAL: Well-appearing, well-nourished, and in no acute distress. HEAD: Normocephalic, atraumatic. EYES: PERRLA and EOMI. ENT: Nares clear, no rhinorrhea or epistaxis. Mucous membranes moist. NECK: Supple. CHEST: Clear to auscultation. No respiratory distress. HEART: Regular rate and rhythm. No murmur heard. Normal peripheral pulses. ABDOMEN: Soft, nontender, nondistended, normal active bowel sounds. EXTREMITIES: Normal range of motion. No edema. SKIN: Warm, dry, no rash. NEURO: No focal deficits. Alert and oriented x3. PSYCH: Normal mood and affect. Course Vital Signs Vital signs: Vital Signs Temperature 36.6 C 06/05/24 21:51 Pulse Rate 113 H 06/05/24 21:51 Respiratory Rate 18 06/05/24 21:51 Blood Pressure 134/81 06/05/24 2
[2024-06-05 22:47] LABS: Appearance Urine Clear (Clear); Bilirubin Urine Negative (Negative); Blood Urine Negative (Negative); Color Urine Yellow (Yellow); Glucose Urine UA Negative (Negative); Ketones Urine Negative (Negative); Leukocyte Esterase Ur Negative LEU/UL (Negative); Nitrate Urine Negative (Negative); Protein Urine Negative (Negative); Specific Grav Ur 1.022 (1.001-1.035); Urobilinogen Urine 0.2 mg/dL (<2.0); pH Urine 5.5 (5.0-9.0)
[2024-06-05 22:53] LABS: Add Urine Microscopic? NO
[2024-06-05 22:59] LABS: Amphetamine Screen Urine Negative (Negative); Barbiturate Screen Urine Negative (Negative); Benzodiazepines Screen Urine Negative (Negative); Cannabinoid Screen Urine Positive (Negative); Cocaine Screen Urine Negative (Negative); Methadone Screen Urine Negative (Negative); Opiate Screen Urine Negative (Negative); Phencyclidine Screen Urine Negative (Negative)
[2024-06-06 00:27] VITALS: BP 132/70; PULSE 98; RESP 15; O2SAT 98
== END 2024-06-06 00:29 | disposition home or self-care (01) ==
PROVIDERS: Emergency Provider Emergency Medicine
DX: F19.10 Other psychoactive substance abuse, uncomplicated (principal); F41.8 Other specified anxiety disorders; F20.9 Schizophrenia, unspecified; F17.200 Nicotine dependence, unspecified, uncomplicated; Z79.899 Other long term (current) drug therapy
CPT/HCPCS: 36415; 80053; 80307; 81003; 85025; 96360; 99283; J7030

== ENCOUNTER 2024-06-07 17:03 | Emergency (ER) | payer MEDICAID, SELFPAY ==
[2024-06-07] VITALS (11 sets, daily range): BP systolic 122–140; BP diastolic 79–89; PULSE 84–113; RESP 15–23; TEMP 36.9–37.4; O2SAT 97–100
--- NOTE | 2024-06-07 17:13 | ED.GENADULT ---
HPI - General Adult General Chief complaint: Altered Mental Status <Pato Solomon MD - Last Filed: 06/07/24 22:06> Stated complaint: Altered from drug use <Pato Solomon MD - Last Filed: 06/07/24 22:06> Time Seen by Provider: 06/10/24 11:00 <Pato Solomon MD - Last Filed: 06/07/24 22:06> History of Present Illness HPI narrative: 28-year-old male with history of schizophrenia and substance abuse presenting to the emergency department for evaluation for altered mental status. Patient does admit to using mushrooms and marijuana today. Patient was just recently discharged from a psych institution. Patient states today was the 1st day that he has used marijuana and mushrooms since being discharged. Mother called EMS because she was concerned with patient seemed altered. <Pato Solomon MD - Last Filed: 06/07/24 22:06> Related Data Home medications: Home Medications Medication Instructions Recorded Confirmed clonazepam 1 mg tablet 1 mg PO BID PRN Anxiety 10/14/22 10/04/23 gabapentin 600 mg tablet 600 mg PO TID 10/14/22 10/04/23 quetiapine 50 mg tablet 100 mg PO BID 10/14/22 10/04/23 Armando-600 With Vitamin D 1 tab-cap PO DAILY 10/04/23 10/04/23 lisdexamfetamine 30 mg capsule 30 mg PO DAILY 10/04/23 10/04/23 (Vyvanse) olanzapine 15 mg tablet 15 mg PO DAILY 10/04/23 10/04/23 venlafaxine 150 mg 150 mg PO DAILY 10/04/23 10/04/23 capsule,extended release 24 hr vitamin B complex 1 cap PO DAILY 10/04/23 10/04/23 <Pato Solomon MD - Last Filed: 06/07/24 22:06> Allergies/adverse reactions: Allergies Allergy/AdvReac Type Severity Reaction Status Date / Time No Known Allergies Allergy Mild Verified 09/24/21 02:58 <Pato Solomon MD - Last Filed: 06/07/24 22:06> Review of Systems Review of Systems: All systems reviewed & are unremarkable except as noted in HPI and below <Pato Solomon MD - Last Filed: 06/07/24 22:06> PMFSH Past Medical History Medical History: Medical History Depression with anxiety Schizophrenia <Pato Solomon MD - Last Filed: 06/07/24 22:06> Surgical History Surgical History: Surgical History No significant past surgical history <Pato Solomon MD - Last Filed: 06/07/24 22:06> Family History Family History: Family History Mother Anxiety Autism Father Asperger syndrome Bipolar affective disorder Other Breast cancer Grandparent Heart disease Mother Pollution of water potentially affecting patient's health Father Pollution of water potentially affecting patient's health Other Schizophrenia <Pato Solomon MD - Last Filed: 06/07/24 22:06> Social History Social History: Social History Social History: He lives with his mother and has been unemployed for at least 3 years. Code status: Full code. Surrogate decision maker: Mother Smoking status: Light tobacco smoker Tobacco type: cigarettes Second hand tobacco smoke exposure: No Additional smoking assessment comments: Once every few months Alcohol intake: current Drinks per week: 1 Alcohol use details: Occasional alcohol use in moderation. Substance use: current Substance use type: marijuana and other Lack of Transportation: No Lack of Food: Sometimes True Current Housing: I Have Housing Concerned About Future Housing: No Difficulty Paying Gas/Electric Bills: YES Difficulty Paying for Meds: No Currently Unemployed: No Education: High School Diploma/GED Difficulty w/ Childcare or Family Care: No Living arrangements: with family Occupation/Education: unemployed Spiritual care concerns: No <Pato Solomon MD - Last Filed: 06/07/24 22:06>
--- NOTE | 2024-06-07 17:31 | PC.NURSE ---
This RN called pts mother Iva at [phone] and discussed her coming to get pt. Pt was found w/ IV pulled out and blood on the floor. Pt attempting to leave, states he does not want to be seen. Per EDP Dr Solomon, security called and pt re directed to room. Pt mother does not feel safe w/ pt at home w/ her 80 something year old mother and states I was clear to [facility], I wanted him to go to [facility] for behavioral health. He has been there before and was agreeable to getting help when they left. I specifically told them to take him to [facility] and not your hospital because you dont have psychiatric care and that is what he needs. I am not going to come get him, he needs help. EDP Dr Solomon made aware, pt AMS and unable to leave AH. Will order Haldol to calm pt in order to get tests and await crisis eval. Security at bedside. Pt currently eating a sandwhich and chips, remains in room.
[2024-06-07] MEDS: HALOPERIDOL LACTATE 5 MG/ML VIAL IM (17:40)
[2024-06-07 17:56] LABS: Basophils Percent Auto 0.2 % (0.2-1.2); Eosinophils Percent Auto 0.2 % (0-4.4); Hematocrit 38.5 % (42.0-52.0); Hemoglobin 12.4 g/dL (14.0-18.0); Immature Granulocyte Absolute 0.08 K/mm3 (0.00-0.031); Immature Granulocyte Percent A 0.9 % (0-0.5); Lymphocytes Absolute Auto 0.66 K/mm3 (0.9-3.2); Lymphocytes Percent Auto 7.3 % (18.3-44.2); Mean Corpuscular HGB Conc 32.2 g/dl (32-36); Mean Corpuscular Volume 99.2 fl (80-100); Mean Platelet Volume 10.3 fl (7.4-10.4); Monocytes Absolute Auto 0.8 K/mm3 (0.1-0.6); Neutrophils Absolute Auto 7.5 K/mm3 (1.3-6.7); Neutrophils Percent Auto 82.4 % (45.5-73.1); Platelet Count Result 221 k/mm3 (150-375); Red Blood Count 3.88 M/mm3 (4.6-6.20); Red Cell Distribution Width 13.3 % (11.5-14.5); White Blood Count 9.1 K/mm3 (4.5-10.0)
[2024-06-07 18:07] LABS: Appearance Urine Clear (Clear); Bilirubin Urine Negative (Negative); Blood Urine Negative (Negative); Color Urine Yellow (Yellow); Glucose Urine UA Negative (Negative); Ketones Urine Negative (Negative); Leukocyte Esterase Ur Negative LEU/UL (Negative); Nitrate Urine Negative (Negative); Protein Urine Negative (Negative); Specific Grav Ur 1.022 (1.001-1.035); Urobilinogen Urine 0.2 mg/dL (<2.0)
[2024-06-07 18:07] LABS: Alanine Aminotransferase 60 U/L (6-50); Albumin Level 4.6 g/dL (3.5-5.1); Alkaline Phosphatase 70 U/L (38-126); Anion Gap 11 mmol/L (4-12); Aspartate Amino Transferase 46 U/L (17-59); Bilirubin,Total 0.4 mg/dL (0.2-1.3); Blood Urea Nitrogen 14 mg/dL (9-20); Calcium 8.6 mg/dL (8.4-10.2); Carbon Dioxide 28 mmol/L (22-30); Chloride 100 mmol/L (98-107); Estimated CRCL calculation 125 ml/min; Estimated Glomerular Filt Rate > 60; Glucose 121 mg/dL (65-110); Sodium 139 mmol/L (137-145)
[2024-06-07 18:09] LABS: Ethanol < 10 mg/dL (<10)
[2024-06-07 18:12] LABS: Add Urine Microscopic? NO
[2024-06-07 18:13] LABS: Acetaminophen < 10 ug/mL (10-30); Salicylate < 1.0 mg/dL (2-20)
[2024-06-07 18:23] LABS: INR 0.9
[2024-06-07 18:24] LABS: Amphetamine Screen Urine Negative (Negative); Barbiturate Screen Urine Negative (Negative); Benzodiazepines Screen Urine Negative (Negative); Cannabinoid Screen Urine Positive (Negative); Cocaine Screen Urine Negative (Negative); Methadone Screen Urine Negative (Negative); Opiate Screen Urine Negative (Negative); Phencyclidine Screen Urine Negative (Negative)
[2024-06-07 18:25] LABS: Partial Thromboplastin Time 24.5 Seconds (22.3-36.8)
--- NOTE | 2024-06-07 18:57 | PC.NURSE ---
Pt has been medically cleared. Pt is calm and cooperative, resting on stretcher. VSS. Per Dr Juanito DARDEN, crisis was notified of request for psych eval and per Carmen will send a public health social worker for pt evaluation.
--- NOTE | 2024-06-07 19:13 | PC.NURSE ---
bedside nurse to nurse report given to Cat RN, pt currently in restroom
--- NOTE | 2024-06-07 19:30 | PC.NURSE ---
report received from CINDY Collado. Assumed care of patient at this time.
--- NOTE | 2024-06-07 19:50 | PC.NURSE ---
I informed the pt that EDP has ordered IV fluids. Pt states, I'm not going to take IV fluids . I attempted to stress the importance of the fluids and that they were needed in order to decide where the pt would go. He again is telling me he will not consent to me starting an IV and fluids. EDP made aware.
--- NOTE | 2024-06-07 22:41 | PC.NURSE ---
YORDAN STEIN INTAKE THERAPIST FROM [facility] CALLED. SHE SAID THAT THEY HAVE NO OPEN BEDS TONIGHT, BUT MAY HAVE A DISCHARGE IN THE MORNING OF 06/08/2024. SHE SAID THAT SHE WOULD CALL THE PSYCHIATRIST AND GET BACK TO US.
[2024-06-08 06:40] VITALS: BP 133/81; PULSE 97; RESP 20; TEMP 37.1; O2SAT 98
--- NOTE | 2024-06-08 06:54 | PC.NURSE ---
this rn spoke with pt mother. pt mother called this hospital to ask for an update on patient.
[2024-06-08 08:33] VITALS: BP 122/74; PULSE 77; RESP 19; TEMP 36.6; O2SAT 98
--- NOTE | 2024-06-08 10:52 | PC.NURSE ---
Paper work faxed to [facility] and [facility]. Crisis is currently looking for placement.
[2024-06-08 11:26] LABS: SARS-CoV-2 RNA PCR Negative (Negative)
[2024-06-08] MEDS: clonazePAM (*CRX) 0.5 MG TABLET 1 MG PO (14:32)
--- NOTE | 2024-06-08 19:47 | PC.NURSE ---
Report received from CINDY Cummings. Assumed care of patient at this time.
--- NOTE | 2024-06-08 21:23 | PC.NURSE ---
Patient ambulates into hallway with steady gait, then walks to phone on wall. Patient uses the phone and then hangs up and walks down the juan. Patient then starts dancing in hallway. Patient instructed to go back to his room. Patient able to be redirected.
[2024-06-08 21:37] VITALS: BP 131/86; PULSE 84; RESP 16; TEMP 37.7; O2SAT 98
--- NOTE | 2024-06-08 22:56 | PC.NURSE ---
Patient ambulates to the bathroom and back to his room with a steady unassisted gait.
--- NOTE | 2024-06-08 23:14 | PC.NURSE ---
Patient given soda upon request.
--- NOTE | 2024-06-09 04:41 | PC.NURSE ---
0440 Audrey with [facility] calls to inform this RN that patient is too high acuity due to his aggression at times and he does not meet criteria for their facility so she declined patient.
--- NOTE | 2024-06-09 07:42 | PC.NURSE ---
Meal tray ordered for pt
[2024-06-09] MEDS: OLANZapine 5 MG TABLET 20 MG PO (07:47)
[2024-06-09] MEDS: clonazePAM (*CRX) 0.5 MG TABLET 1 MG PO (07:49)
[2024-06-09 07:54] VITALS: BP 122/75; PULSE 82; RESP 15; TEMP 36.5; O2SAT 100
--- NOTE | 2024-06-09 16:36 | PC.NURSE ---
BLS transfer to [facility] - 1431 Declined [facility] - 1637 ETA Thrus06/13/2024 6a [facility] - Declined [facility] - 1638 06/12/2024 morning
[2024-06-09 16:50] VITALS: BP 125/80; PULSE 88; RESP 16; TEMP 37.1; O2SAT 100
--- NOTE | 2024-06-09 18:34 | PC.NURSE ---
Pt mother, Iva, given update regarding pt status and impending transfer to [facility]. Pt mother requests to be called when pt is scheduled to be transferred.
--- NOTE | 2024-06-09 19:15 | PC.NURSE ---
Pt walked out of EMS bay. This RN and another RN were able to redirect pt back into room with no issues
--- NOTE | 2024-06-09 19:17 | PC.NURSE ---
Bedside report given to Carmen WHITE, all questions answered.
--- NOTE | 2024-06-09 19:20 | PC.NURSE ---
Report received from CINDY Ordonez. Assumed care of patient at this time.
--- NOTE | 2024-06-09 19:33 | PC.NURSE ---
Patient taken to shower escorted by male health record technician and security. Patient has personal hygiene products to use as well.
--- NOTE | 2024-06-09 20:00 | PC.NURSE ---
Patient returned to room after shower, escorted by ED security and fuel storage technician. Patient also moved to room 14. Patient cooperative and re directable and able to follow commands.
--- NOTE | 2024-06-09 20:26 | PC.NURSE ---
ON 12/10/2023 AT 6 [facility] TOOK THIS PT'S PREVIOUSLY ASSIGNED BED AWAY DUE TO LENGTH OF TIME TO ARRANGE FOR TRANSPORT.
--- NOTE | 2024-06-09 21:05 | PC.NURSE ---
ON 06/09/24 AT 2105 CRISIS WAS NOTIFIED AT [phone]. SPOKE WITH EMMA. NOTIFIED THEM THAT [facility] TOOK THE PREVIOUSLY ASSIGNED BED AWAY DUE TO LENGTH OF TIME TO ARRANGE TRANSPORT.
--- NOTE | 2024-06-09 22:42 | PC.NURSE ---
Patient wandering in hallway. Patient instructed to go back to his room. Patient then ambulated back to his room with a steady gait.
--- NOTE | 2024-06-10 05:09 | PC.NURSE ---
Patient sitting in chair in room staring at the television and then staring at the wall. Patient in green scrubs. Call light within reach.
[2024-06-10 06:06] VITALS: BP 131/78; PULSE 90; RESP 16; TEMP 36.5; O2SAT 99
--- NOTE | 2024-06-10 07:05 | PC.NURSE ---
Patient out of room and wandering in hallway. Patient back to room.
--- NOTE | 2024-06-10 07:55 | PC.NURSE ---
Patient out of room and wandering halls. Patient walking towards EMS bay door. Patient back to room.
--- NOTE | 2024-06-10 08:05 | PC.NURSE ---
ordered pt safety breakfast tray.
--- NOTE | 2024-06-10 08:15 | PC.NURSE ---
Patient wandering in halls. Patient back to room. Sitter placed on patient d/t elopement risk.
--- NOTE | 2024-06-10 08:23 | PC.NURSE ---
Tish at [facility] notified this am and informed of the loss of bed at [facility]. This RN did reach back out to [facility] this am to request that if I could arrange transport for today would they reconsider if the bed is still available. The spring tester stated she did not see where they had accepted this patient and stated we would have to re-start the process of intake. This RN did learn that we would not have transport today so I declined to restart process with [facility] and will seek admission somewhere closer if possible. [facility] psych intake contacted and information on patient given and request to fax information will be done.
--- NOTE | 2024-06-10 08:27 | PC.NURSE ---
Tish at crisis notified to begin to reach out to other facilities. She reports that most facilities will not have beds til after 11am today.
--- NOTE | 2024-06-10 09:39 | PC.NURSE ---
Kenyetta with [facility] called requesting more information on pt. pt currently speaking with Kenyetta from [facility] on ED juan phone.
--- NOTE | 2024-06-10 09:52 | PC.NURSE ---
[facility] notified and awaiting to see if they have beds available and will call back.
[2024-06-10] MEDS: clonazePAM (*CRX) 0.5 MG TABLET 1 MG PO (11:29)
[2024-06-10] MEDS: OLANZapine 5 MG TABLET 20 MG PO (11:30)
--- NOTE | 2024-06-10 11:34 | PC.NURSE ---
assumed care of pt from CINDY Son. pt sitting in chair in room, no distress at this time. pt informed we are awaiting a bed at [facility], no concerns at this time
--- NOTE | 2024-06-10 11:35 | PC.NURSE ---
[facility] intake returned call to ED and Dr. Del Valle is accepting patient. They will return call in 1 hour with a room assignment after discharges of current patients at their facility occurs. New voluntary form signed by the patient as he is now willing to go voluntary to [facility] for treatment. Copy of Face sheet updated by registration to show his insurance [place]icaid. New voluntary form, updated face sheet and most recent copy of pyschosocial assessment by RN and provider faxed to [facility] at their request. Will await room assignment and Trejo in [employer] truck requested to transport patient when room becomes available discussed with supervisory civil engineer Clark at this time.
--- NOTE | 2024-06-10 13:56 | PC.NURSE ---
pt requesting shower. spoke with security, states no one is available for escort now, but will send someone once they are available. pt and scrap charger updated
--- NOTE | 2024-06-10 14:16 | PC.NURSE ---
pt escorted by male operating room technologist and security to room for shower
[2024-06-10 14:44] VITALS: BP 127/82; PULSE 78; RESP 18; TEMP 36.6; O2SAT 100
[2024-06-10 15:19] VITALS: BP 130/80; PULSE 78; RESP 16; TEMP 36.6; O2SAT 100
== END 2024-06-10 15:23 ==
PROVIDERS: Emergency Medicine; Emergency Provider Emergency Medicine
DX: F20.9 Schizophrenia, unspecified (principal); F19.10 Other psychoactive substance abuse, uncomplicated; F22 Delusional disorders; Z11.52 Encounter for screening for COVID-19; F41.8 Other specified anxiety disorders; F17.210 Nicotine dependence, cigarettes, uncomplicated; Z79.899 Other long term (current) drug therapy
CPT/HCPCS: 36415; 80053; 80307; 81003; 84443; 85025; 85610; 85730; 87635; 99285; A9270; J1630